=== PATIENT | female | born 1980 | race Caucasian/White ===

== ENCOUNTER 2019-01-16 07:41 | Emergency (ER) | payer BC, SELFPAY ==
[2019-01-16] MEDS ORDERED: MORPHINE 4 MG/ML SYR ONE ×2 (08:08→10:14)
[2019-01-16] MEDS ORDERED: NA CHLORIDE 0.9% 1,000 ML ONE (08:08)
[2019-01-16] MEDS ORDERED: ONDANSETRON 4 MG/2 ML VIAL ONE (08:08)
[2019-01-16 08:26] LABS: Absolute Lymphocytes (CBC) 2.1 K/uL (0.7-4.9); Basophils % 0.6 % (0-1.3); Hematocrit 36.5 % (36.0-45.0); Lymphocytes % 14.7 % (15.3-44.8); MPV 9.4 fL (7.6-11.3); RBC Red Blood Cell Count 4.28 M/uL (3.86-4.86)
[2019-01-16 08:45] LABS: ALT/SGPT 26 U/L (12-78); AST/SGOT 13 U/L (15-37); Albumin 3.8 g/dL (3.4-5.0); Alkaline Phosphatase 82 U/L (45-117); BUN Blood Urea Nitrogen 11 mg/dL (7-18); Bicarbonate 26 mmol/L (21-32); Bilirubin Direct < 0.1 mg/dL (0-0.2); Bilirubin Total 0.2 mg/dL (0.2-1.0); Glucose Level 73 mg/dL (74-106); Lipase 129 U/L (73-393); Potassium 3.9 mmol/L (3.5-5.1); Protein, Total 7.8 g/dL (6.4-8.2); Sodium Level 141 mmol/L (136-145)
[2019-01-16] MEDS ORDERED: KETOROLAC 30 MG/ML INJ ONE (09:18)
--- NOTE | 2019-01-16 09:55 | RAD REPORT ---
EXAM DESCRIPTION: CTAbdomen Pelvis W Contrast - 01/16/2019 9:46 am CLINICAL HISTORY: Abdominal pain. upper abdomen pain COMPARISON: CT ABD PELVIS W CONTRAST dated 11/12/2014; CT ABD PELVIS W CONTRAST dated 10/09/2013; CT ABD PELVIS W CONTRAST dated 07/15/2012 TECHNIQUE: Biphasic CT imaging of the abdomen and pelvis was performed with 100 ml non-ionic IV cont rast. All CT scans are performed using dose optimization technique as appropriate and may include automated exposure control or mA/KV adjustment according to patient size. FINDINGS: The lung bases are clear. The liver, spleen, pancreas, adrenal glands are within normal limits. Punctate bilateral renal calcul i without hydronephrosis. No bowel obstruction, free air, free fluid or abscess. Appendectomy clips. No evidence of significa nt lymphadenopathy. No suspicious bony findings. IMPRESSION: Small bilateral renal calculi without hydronephrosis.
[2019-01-16 10:31] LABS: Urine Blood TRACE (NEG); Urine Glucose NEGATIVE (NEG); Urine Protein NEGATIVE (NEG); Urine Specific Gravity >1.030 (1.005-1.030); Urine pH 5.5 (5.0-7.0)
[2019-01-16] MEDS ORDERED: LIDOCAINE VISCOUS 2% SOLN 15 ML UDC ONE (11:09)
[2019-01-16] MEDS ORDERED: MAGNE/ALUM HYDROXD 30 ML UCUP ONE (11:09)
--- NOTE | 2019-01-16 11:18 | RAD REPORT ---
EXAM DESCRIPTION: US - Abdomen Exam Limited - 01/16/2019 10:41 am CLINICAL HISTORY: ABD PAIN COMPARISON: ABDOMINAL EXAM COMPLETE dated 12/09/2014; Abdomen Pelvis W Contrast dated 01/16/2019 FINDINGS: The gallbladder demonstrates no gallstones. No pericholecystic fluid or gallbladder wall t hickening. The common bile duct is normal measuring 3 mm. The liver demonstrates no findings of intrahepatic biliary dilatation. IMPRESSION: Unremarkable examination.
--- NOTE | 2019-01-16 12:19 | ER ---
Nurse's Notes [facility] Name: Ericka Canales Age: 38 yrs Sex: Female : 1980 Arrival Date: 01/16/2019 Time: 07:43 Bed 14 Private MD: Diagnosis: Upper abdominal pain, unspecified Presentation: 01/16 08:00 Presenting complaint: Patient states: RUQ pain that began last night. Patient has been ss told she needs to have her gallbladder removed, but states she has kids at home and it's hard to take care of herself. Transition of care: patient was not received from another setting of care. Onset of symptoms was January 16, 2019. Risk Assessment: Do you want to hurt yourself or someone else? Patient reports no desire to harm self or others. Initial Sepsis Screen: Does the patient meet any 2 criteria? No. Patient's initial sepsis screen is negative. Does the patient have a suspected source of infection? No. Patient's initial sepsis screen is negative. Care prior to arrival: None. 08:00 Method Of Arrival: Ambulatory ss 08:00 Acuity: LETTY 3 ss CLIENT COORDINATOR: 08:05 LMP N/A - Irregular menses rb1 Historical: - Allergies: 08:02 No Known Allergies; ss - Home Meds: 08:05 None [Active]; rb1 - PMHx: 08:05 None; rb1 - PSHx: 08:02 Appendectomy; ; ss - Immunization history:: Adult Immunizations up to date. - Ebola Screening: : Patient denies exposure to infectious person Patient denies travel to an Ebola-affected area in the 21 days before illness onset. - Social history:: Smoking status: Patient uses tobacco products, denies chronic smoking, but will smoke occasionally. Screenin:55 Abuse screen: Denies threats or abuse. Nutritional screening: No deficits noted. rb1 Tuberculosis screening: No symptoms or risk factors identified. Fall Risk None identified. Assessment: 07:55 General: Appears uncomfortable, Behavior is calm, cooperative, Denies fever. Pain: rb1 Complains of pain in right upper quadrant Pain currently is 8 out of 10 on a pain scale. Neuro: Level of Consciousness is awake, alert, obeys commands, Oriented to person, place, time, situation. Cardiovascular: Capillary refill < 3 seconds is brisk in bilateral fingers. Respiratory: Airway is patent Respiratory effort is even, unlabored, Respiratory pattern is regular, symmetrical. GI: Reports nausea, vomiting. : No signs and/or symptoms were reported regarding the genitourinary system. Derm: Skin is pink, warm \T\ dry. Musculoskeletal: Range of motion: intact in all extremities. 08:55 Reassessment: Patient appears in no apparent distress at this time. No changes from rb1 previously documented assessment. 09:55 Reassessment: Patient appears in no apparent distress at this time. Patient and/or rb1 family updated on plan of care and expected duration. Pain level reassessed. Patient is alert, oriented x 3, equal unlabored respirations, skin warm/dry/pink. 10:30 Reassessment: Pt. went to US. rb1 11:05 Reassessment: Patient appears in no apparent distress at this time. Patient and/or rb1 family updated on plan of care and expected duration. Pain level reassessed. Patient is alert, oriented x 3, equal unlabored respirations, skin warm/dry/pink. 12:00 Reassessment: Patient appears in no apparent distress at this time. Patient and/or rb1 family updated on plan of care and expected duration. Pain level reassessed. Patient is alert, oriented x 3, equal unlabored respirations, skin warm/dry/pink. Vital Signs: 08:02 BP 125 / 58; Pulse 81; Resp 19; Temp 98.1; Pulse Ox 98% on R/A; Weight 99.79 kg; Height ss 5 ft. 6 in. (167.64 cm); Pain 9/10; 09:00 BP 112 / 67; Pulse 71; Resp 20; Temp 98.2(O); Pulse Ox 98% on R/A; Pain 7/10; rb1 10:00 BP 116 / 63; Pulse 66; Resp 19; Pulse Ox 99% on R/A; Pain 10/10; rb1 11:00 BP 120 / 68; Pulse 51; Resp 18; Temp 97.9(TE); Pulse Ox 99% on R/A; Pain 8/10; rb1 12:00 BP 108 / 70; Pulse 57; Resp 17; Temp 98.2(O); Pulse Ox 97% on R/A; rb1 08:02 Body Mass Index 35.51 (99.79 kg, 167.64 cm) ss 10:00 provider notified of pain. rb1 ED Course: 07:43 Patient arrived in ED. as 07:54 Sabino Bowman PA is PHCP. cp 07:54 Anny Calloway MD is Attending Physician. cp 07:55 Patient has correct armband on for positive identification. Placed in gown. Bed in low rb1 position. Call light in reach. Side rails up X 1. Pulse ox on. NIBP on. Warm blanket given. 07:55 Inserted saline lock: 22 gauge in right antecubital area, using aseptic technique. rb1 Blood collected. 08:01 Triage completed. ss 08:02 Arm band placed on right wrist. ss 08:04 Alice Dominguez, RN is Primary Nurse. rb1 09:47 CT Abd/Pelvis - IV Contrast Only In Process Unspecified. EDMS 10:38 US Abdomen Limited: RUQ/epigastric area In Process Unspecified. EDMS 12:18 Sonido Gant MD is Referral Physician. cp 13:09 No provider procedures requiring assistance completed. IV discontinued, intact, rb1 bleeding controlled, No redness/swelling at site. Pressure dressing applied. Administered Medications: 08:20 Drug: NS 0.9% 1000 ml Route: IV; Rate: 1 bolus; Site: right antecubital; rb1 08:20 Drug: Zofran 4 mg Route: IVP; Site: right antecubital; rb1 08:35 Follow up: Response: No adverse reaction; Nausea is decreased rb1 08:20 Drug: morphine 4 mg Route: IVP; Site: right antecubital; rb1 08:35 Follow up: Response: No adverse reaction; Pain is decreased rb1 09:20 Drug: TORadol 30 mg Route: IVP; Site: right antecubital; rb1 09:35 Follow up: Response: No adverse reaction; Pain is unchanged, physician notified rb1 10:18 Drug: morphine 4 mg Route: IVP; Site: right antecubital; rb1 10:40 Follow up: Response: No adverse reaction; Pain is decreased; pain 12/14 rb1 11:12 Drug: GI Cocktail without - (Maalox Suspension 30 ml, Lidocaine Liquid 2 % 15 rb1 ml) Route: PO; 11:30 Follow up: Response: No adverse reaction rb1 Intake: Outcome: 12:19 Discharge ordered by . cp 12:50 Patient left the ED. rb1 12:50 Discharged to home ambulatory. rb1 12:50 Condition: stable 12:50 Discharge instructions given to patient, Instructed on discharge instructions, follow rb1 up and referral plans. medication usage, Demonstrated understanding of instructions, follow-up care, medications, Prescriptions given X 3. Signatures: Dispatcher [employer] Jeannie Greoc Shelby, RN RN ss Sabino Bowman PA PA cp Barber, Rebecca, RN RN rb1
--- NOTE | 2019-01-16 12:20 | EDPHYS ---
Physician Documentation [facility] Name: Ericka Canales Age: 38 yrs Sex: Female : 1980 Arrival Date: 01/16/2019 Time: 07:43 Bed 14 Private MD: ED Physician Anny Calloway HPI: 01/16 08:10 This 38 yrs old Female presents to ER via Ambulatory with complaints of cp Gallbladder. 08:10 The patient presents with abdominal pain in the epigastric area, in the right upper cp quadrant. Onset: The symptoms/episode began/occurred last night. The symptoms radiate to Associated signs and symptoms: Pertinent positives: nausea, Pertinent negatives: blood in stools, chest pain, constipation, shortness of breath, vomiting. The patient has experienced similar episodes in the past, several times, today's symptoms are similar, to previous biliary colic. 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 - Ebola Screening: : Patient denies exposure to infectious person Patient denies travel to an Ebola-affected area in the 21 days before illness onset. - Social history:: Smoking status: Patient uses tobacco products, denies chronic smoking, but will smoke occasionally. ROS: 08:15 Constitutional: Negative for body aches, chills, fever, poor PO intake. cp 08:15 Eyes: Negative for injury, pain, redness, and discharge. cp 08:15 Cardiovascular: Negative for chest pain, edema, palpitations. cp 08:15 Respiratory: Negative for cough, shortness of breath, wheezing. cp 08:15 Abdomen/GI: Positive for abdominal pain, nausea, Negative for vomiting, diarrhea, constipation. 08:15 Back: Positive for radiated pain. 08:15 : Negative for urinary symptoms, vaginal bleeding, vaginal discharge. 08:15 Skin: Negative for cellulitis, rash. 08:15 Neuro: Negative for altered mental status, headache, weakness. 08:15 All other systems are negative. Exam: 08:25 Constitutional: The patient appears in no acute distress, alert, awake, cp non-diaphoretic, non-toxic, well developed, well nourished, uncomfortable. 08:25 Head/Face: Normocephalic, atraumatic. cp 08:25 Eyes: Periorbital structures: appear normal, Conjunctiva: normal, no exudate, no injection, Sclera: no appreciated abnormality, Lids and lashes: appear normal, bilaterally. 08:25 ENT: External ear(s): are unremarkable, Nose: is normal, Mouth: Lips: moist, Oral mucosa: pink and intact, moist, Posterior pharynx: is normal, airway is patent, no erythema, no exudate. 08:25 Chest/axilla: Inspection: normal, Palpation: is normal, no crepitus, no tenderness. 08:25 Cardiovascular: Rate: normal, Rhythm: regular. 08:25 Respiratory: the patient does not display signs of respiratory distress, Respirations: normal, no use of accessory muscles, no retractions, no splinting, no tachypnea, labored breathing, is not present, Breath sounds: are clear throughout, no decreased breath sounds, no stridor, no wheezing. 08:25 Abdomen/GI: Inspection: abdomen appears normal, Bowel sounds: active, all quadrants, Palpation: soft, in all quadrants, moderate abdominal tenderness, in the epigastric area and right upper quadrant, rebound tenderness, is not appreciated, voluntary guarding, is elicited in the epigastric area and right upper quadrant. 08:25 Back: pain, that is moderate, of the right mid back. 08:25 Skin: no rash present. Vital Signs: 08:02 BP 125 / 58; Pulse 81; Resp 19; Temp 98.1; Pulse Ox 98% on R/A; Weight 99.79 kg; Height ss 5 ft. 6 in. (167.64 cm); Pain 9/10; 09:00 BP 112 / 67; Pulse 71; Resp 20; Temp 98.2(O); Pulse Ox 98% on R/A; Pain 7/10; rb1 10:00 BP 116 / 63; Pulse 66; Resp 19; Pulse Ox 99% on R/A; Pain 10/10; rb1 11:00 BP 120 / 68; Pulse 51; Resp 18; Temp 97.9(TE); Pulse Ox 99% on R/A; Pain 8/10; rb1 12:00 BP 108 / 70; Pulse 57; Resp 17; Temp 98.2(O); Pulse Ox 97% on R/A; rb1 08:02 Body Mass Index 35.51 (99.79 kg, 167.64 cm) ss 10:00 provider notified of pain. rb1 MDM: 07:58 Patient medically screened. cp 09:00 Differential diagnosis: appendicitis, bowel obstruction, cholecystitis, Cholelithiasis, cp non-specific abd pain, pancreatitis, Peptic Ulcer Disease, Perf. Duodenal Ulcer, Perf. Gastric Ulcer, Ureterolithiasis, urinary tract infection. 12:18 Data reviewed: vital signs, nurses notes, lab test result(s), radiologic studies, CT cp scan, plain films. 12:18 Special discussion: Based on the patient's Hx, exam, and Dx evaluation, there is no cp indication for emergent surgery or inpatient Tx. It is understood by the patient/guardian that if the Sx's persist or worsen they need to return immediately for re-evaluation. 12:18 Counseling: I had a detailed discussion with the patient and/or guardian regarding: the cp historical points, exam findings, and any diagnostic results supporting the discharge/admit diagnosis, lab results, radiology results, the need for outpatient follow up, a patient care nursing assistant, to return to the emergency department if symptoms worsen or persist or if there are any questions or concerns that arise at home. 12:18 Response to treatment: the patient's symptoms have markedly improved after treatment, cp and as a result, I will discharge patient. 01/16 08:02 Order name: Basic Metabolic Panel; Complete Time: 08:58 cp 01/16 08:59 Interpretation: Normal except: GLUC 73; GFR 89. cp 01/16 08:02 Order name: CBC with Diff; Complete Time: 08:58 cp 01/16 08:59 Interpretation: Normal except: WBC 14.3; LYM% 14.7; NEUT A 10.5. cp 01/16 08:02 Order name: Creatinine for Radiology; Complete Time: 08:58 cp 01/16 08:02 Order name: Hepatic Function; Complete Time: 08:58 cp 01/16 09:03 Interpretation: Normal except: AST 13; GLOB 4.0; A/G 1.0. cp 01/16 08:02 Order name: Lipase; Complete Time: 08:58 cp 01/16 08:59 Interpretation: LIP 129; Reviewed. 01/16 09:21 Order name: Urine Dipstick--Ancillary (enter results); Complete Time: 11:04 bd 01/16 08:04 Order name: CT Abd/Pelvis - IV Contrast Only; Complete Time: 10:11 cp 01/16 09:21 Order name: Urine --Ancillary (enter results); Complete Time: 11:04 01/16 10:12 Order name: US Abdomen Limited: RUQ/epigastric area; Complete Time: 11:40 cp 01/16 11:41 Interpretation: Report reviewed. 01/16 08:02 Order name: IV Saline Lock; Complete Time: 08:26 01/16 08:02 Order name: Labs collected and sent; Complete Time: 08:26 01/16 08:02 Order name: Urine Dipstick-Ancillary (obtain specimen); Complete Time: 09:22 cp 01/16 08:02 Order name: Urine Test (obtain specimen); Complete Time: 09:22 cp Administered Medications: 08:20 Drug: NS 0.9% 1000 ml Route: IV; Rate: 1 bolus; Site: right antecubital; rb1 08:20 Drug: Zofran 4 mg Route: IVP; Site: right antecubital; rb1 08:35 Follow up: Response: No adverse reaction; Nausea is decreased rb1 08:20 Drug: morphine 4 mg Route: IVP; Site: right antecubital; rb1 08:35 Follow up: Response: No adverse reaction; Pain is decreased rb1 09:20 Drug: TORadol 30 mg Route: IVP; Site: right antecubital; rb1 09:35 Follow up: Response: No adverse reaction; Pain is unchanged, physician notified rb1 10:18 Drug: morphine 4 mg Route: IVP; Site: right antecubital; rb1 10:40 Follow up: Response: No adverse reaction; Pain is decreased; pain 12/14 rb1 11:12 Drug: GI Cocktail without - (Maalox Suspension 30 ml, Lidocaine Liquid 2 % 15 rb1 ml) Route: PO; 11:30 Follow up: Response: No adverse reaction rb1 Disposition: 18:51 Co-signature as Attending Physician, Anny Calloway MD. ma2 Disposition: 01/16/19 12:19 Discharged to Home. Impression: Upper abdominal pain, unspecified. - Condition is Stable. - Discharge Instructions: Abdominal Pain, Adult. - Prescriptions for Bentyl 20 mg Oral Tablet - take 2 tablets by ORAL route every 6 hours As needed; 30 tablet. Protonix 40 mg Oral Tablet - take 1 tablet by ORAL route once daily; 30 tablet. Zofran 4 mg Oral Tablet - take 1 tablet by ORAL route every 12 hours As needed; 20 tablet. - Medication Reconciliation Form, Thank You Letter, Antibiotic Education, Prescription Opioid Use form. - Follow up: Sonido Gant MD; When: 1 - 2 days; Reason: Recheck today's complaints. - Problem is new. - Symptoms have improved. Signatures: Dispatcher [employer] EDMS Marissa Gibbs RN RN ss Sabino Bowman PA PA cp Barber, Rebecca, RN RN rb1 Anny Calloway MD MD ma2 Corrections: (The following items were deleted from the chart) 08:59 08:59 Normal except: WBC 14.3. cp cp 12:50 12:19 01/16/2019 12:19 Discharged to Home. Impression: Upper abdominal pain, rb1 unspecified. Condition is Stable. Forms are Medication Reconciliation Form, Thank You Letter, Antibiotic Education, Prescription Opioid Use. Follow up: Sonido Gant; When: 1 - 2 days; Reason: Recheck today's complaints. Problem is new. Symptoms have improved. cp
[2019-01-16 13:13] VITALS: BP 108/70; TEMP 98.2; O2SAT 97
== END 2019-01-16 12:50 | disposition home or self-care (01) ==
LOC: ER 07:41
DX: R10.10 Upper abdominal pain, unspecified (principal)
CPT/HCPCS: 36415; 74177; 76705; 80048; 80076; 81003; 81025; 83690; 85025; 96374; 96375; 99284; J2405; J7030; Q9967

== ENCOUNTER 2019-04-14 18:49 | Emergency (ER) | payer SELFPAY ==
[2019-04-14] MEDS ORDERED: NA CHLORIDE 0.9% 1,000 ML ONE (19:28)
[2019-04-14 19:35] LABS: Absolute Lymphocytes (CBC) 2.8 K/uL (0.7-4.9); Basophils % 0.9 % (0-1.3); Hematocrit 38.7 % (36.0-45.0); MPV 9.7 fL (7.6-11.3); RBC Red Blood Cell Count 4.58 M/uL (3.86-4.86)
[2019-04-14 19:53] LABS: ALT/SGPT 23 U/L (12-78); AST/SGOT 15 U/L (15-37); Albumin 3.8 g/dL (3.4-5.0); Alkaline Phosphatase 75 U/L (45-117); BUN Blood Urea Nitrogen 13 mg/dL (7-18); Bicarbonate 27 mmol/L (21-32); Bilirubin Direct < 0.1 mg/dL (0-0.2); Bilirubin Total 0.2 mg/dL (0.2-1.0); Glucose Level 84 mg/dL (74-106); Lipase 68 U/L (73-393); Potassium 3.8 mmol/L (3.5-5.1); Protein, Total 7.6 g/dL (6.4-8.2); Sodium Level 139 mmol/L (136-145)
[2019-04-14] MEDS ORDERED: MORPHINE 4 MG/ML SYR ONE ×2 (20:03→20:38)
[2019-04-14] MEDS ORDERED: ONDANSETRON 4 MG/2 ML VIAL ONE ×2 (20:03→22:39)
--- NOTE | 2019-04-14 20:19 | RAD REPORT ---
EXAM DESCRIPTION: US - Abdomen Exam Limited - 04/14/2019 8:06 pm CLINICAL HISTORY: ABD PAIN COMPARISON: <Comparisons> FINDINGS: The gallbladder demonstrates no gallstones. No pericholecystic fluid or gallbladder wall t hickening. The common bile duct is normal measuring 2 mm. The liver demonstrates no findings of intrahepatic biliary dilatation. IMPRESSION: Unremarkable examination.
--- NOTE | 2019-04-14 20:19 | ER ---
Nurse's Notes [facility] Name: Ericka Canales Age: 38 yrs Sex: Female : 1980 Arrival Date: 04/14/2019 Time: 18:[address] Private MD: Diagnosis: Abdominal tenderness;Functional dyspepsia Presentation: 04/14 18:57 Presenting complaint: Patient states: RUQ pain for the past 2 hours. Reports nausea, aj1 vomiting. Denies diarrhea. Transition of care: patient was not received from another setting of care. Onset of symptoms was April 14, 2019. Risk Assessment: Do you want to hurt yourself or someone else? Patient reports no desire to harm self or others. Initial Sepsis Screen: Does the patient meet any 2 criteria? No. Patient's initial sepsis screen is negative. Does the patient have a suspected source of infection? Yes: Acute abdominal pain. Care prior to arrival: None. 18:57 Method Of Arrival: Ambulatory aj 18:57 Acuity: LETTY 3 aj1 Triage Assessment: 19:00 General: Appears in no apparent distress. comfortable, Behavior is calm, cooperative, aj1 appropriate for age. Pain: Complains of pain in right upper quadrant Pain currently is 8 out of 10 on a pain scale. Neuro: Level of Consciousness is awake, alert, obeys commands. Cardiovascular: Patient's skin is warm and dry. Respiratory: Airway is patent Respiratory effort is even, unlabored, Respiratory pattern is regular, symmetrical. GI: Reports upper abdominal pain. 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 - Social history:: Smoking status: Patient uses tobacco products, smokes one-half pack cigarettes per day. - Ebola Screening: : Patient denies travel to an Ebola-affected area in the 21 days before illness onset. - Family history:: not pertinent. Screenin:59 Abuse screen: Denies threats or abuse. Denies injuries from another. Nutritional rv screening: No deficits noted. Tuberculosis screening: No symptoms or risk factors identified. 23:02 Fall Risk None identified. rv Assessment: 19:31 General: Appears in no apparent distress. rv 19:31 Pain: Complains of pain in right upper quadrant. rv 19:31 Neuro: Level of Consciousness is awake, alert, obeys commands, Oriented to person, rv place, time, situation. Cardiovascular: Patient's skin is warm and dry. Respiratory: Airway is patent. GI: Bowel sounds present X 4 quads. Abd is soft and non tender X 4 quads. : No signs and/or symptoms were reported regarding the genitourinary system. EENT: No signs and/or symptoms were reported regarding the EENT system. Derm: Skin is intact. Musculoskeletal: No signs and/or symptoms reported regarding the musculoskeletal system. Vital Signs: 19:00 BP 112 / 73; Pulse 73; Resp 18; Temp 98.1; Pulse Ox 98% on R/A; Weight 104.33 kg (R); aj1 Height 5 ft. 6 in. (167.64 cm) (R); Pain 8/10; 20:00 BP 134 / 75; Pulse 68; Resp 16; Pulse Ox 98% on R/A; rv 21:00 BP 109 / 75; Pulse 68; Resp 17; Pulse Ox 98% on R/A; rv 21:00 BP 94 / 71; Pulse 56; Resp 15; Pulse Ox 99% on R/A; rv 22:00 BP 106 / 87; Pulse 70; Resp 16; Pulse Ox 99% on R/A; rv 22:57 BP 112 / 88; Pulse 66; Resp 15; Pulse Ox 97% on R/A; rv 19:00 Body Mass Index 37.12 (104.33 kg, 167.64 cm) aj1 ED Course: 18:51 Patient arrived in ED. as 19:00 Triage completed. aj1 19:00 Arm band placed on Patient placed in an exam room. aj1 19:04 Sabino Rendon MD is Attending Physician. [facility] 19:17 Urine collected: clean catch specimen, clear, bertha colored. jp3 19:18 Placed in gown. Bed in low position. Call light in reach. Side rails up X 1. Warm jp3 blanket given. Verbal reassurance given. Pulse ox on. NIBP on. 19:21 Prasanth Garcia, YOLANDA is Primary Nurse. rv 20:12 US Abdomen Limited In Process Unspecified. EDMS 20:17 Jaren Cross MD is Referral Physician. adelso 21:52 CT Abd/Pelvis - IV Contrast Only In Process Unspecified. EDMS 23:00 No provider procedures requiring assistance completed. IV discontinued, intact, rv bleeding controlled, No redness/swelling at site. Pressure dressing applied. Administered Medications: 19:29 Drug: NS 0.9% 1000 ml Route: IV; Rate: 1 bolus; Site: right antecubital; rv 22:25 Follow up: IV Status: Completed infusion; IV Intake: 1000ml rv 20:00 Drug: morphine 4 mg Route: IVP; Site: right antecubital; rv 22:25 Follow up: Response: No adverse reaction; Pain is unchanged, physician notified; RASS: rv Alert and Calm (0) 20:00 Drug: Zofran 4 mg Route: IVP; Site: right antecubital; rv 22:25 Follow up: Response: No adverse reaction rv 20:23 CANCELLED (Duplicate Order): morphine 4 mg IVP once; RASS on ADMIN: Combtv4, Very rv Agttd3, Agttd2, Rstlss1, AlertClm0, Drwsy-1, Lt Sdtn-2, Mod Sdtn-3, Dp Sdtn-4, UnArsble-5 20:23 CANCELLED (Duplicate Order): Zofran 4 mg IVP once; over 2 minutes rv 20:40 Drug: morphine 4 mg {Note: RASS 0.} Route: IVP; Site: left antecubital; rv 22:26 Follow up: Response: No adverse reaction; Pain is unchanged, physician notified; RASS: rv Alert and Calm (0) 20:40 Drug: Zofran 4 mg Route: IVP; Site: left antecubital; rv 22:26 Follow up: Response: No adverse reaction rv 20:41 Drug: Pepcid 20 mg Route: IVP; Site: left antecubital; rv 22:24 Follow up: Response: No adverse reaction rv 21:52 Drug: Dilaudid 0.5 mg {Note: RASS 0.} Route: IVP; Site: right forearm; rv 22:26 Follow up: Response: No adverse reaction; Marked relief of symptoms; Pain is decreased; rv RASS: Alert and Calm (0) 22:56 Not Given (not indicated): Dilaudid 0.5 mg IVP once; RASS on ADMIN: Combtv4, Very rv Agttd3, Agttd2, Rstlss1, AlertClm0, Drwsy-1, Lt Sdtn-2, Mod Sdtn-3, Dp Sdtn-4, UnArsble-5 Intake: 22:25 IV: 1000ml; Total: 1000ml. rv Outcome: 20:18 Discharge ordered by . adelso 23:01 Discharged to home ambulatory, with family. rv 23:01 Condition: good 23:01 Discharge instructions given to patient, Instructed on discharge instructions, follow up and referral plans. medication usage, Demonstrated understanding of instructions, follow-up care, medications, Prescriptions given X 4. 23:12 Patient left the ED. rv Signatures: Dispatcher [employer] Hanna Hoyos, RN RN Sabino Oneill MD MD cha Martinez, Amelia as Vicente, Ronaldo, RN RN Jaime Viramontes jp3 Corrections: (The following items were deleted from the chart) 21:53 21:52 Dilaudid 0.5 mg IVP in right forearm rv rv
--- NOTE | 2019-04-14 20:19 | EDPHYS ---
Physician Documentation [facility] Name: Ericka Canales Age: 38 yrs Sex: Female : 1980 Arrival Date: 04/14/2019 Time: 18:[address] Private MD: ED Physician Sabino Rendon HPI: 04/14 20:10 This 38 yrs old Female presents to ER via Ambulatory with complaints of adelso Abdominal Pain. 20:10 The patient presents with abdominal pain in the epigastric area, in the upper abdomen, adelso abdominal distention in the upper abdomen, in the lower abdomen. Onset: The symptoms/episode began/occurred just prior to arrival, today. The symptoms radiate to Associated signs and symptoms: none. The symptoms are described as constant, crampy. Modifying factors: The symptoms are alleviated by nothing, the symptoms are aggravated by nothing. Severity of pain: At its worst the pain was moderate in the emergency department the pain is unchanged. The patient has not experienced similar symptoms in the past. 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 - Social history:: Smoking status: Patient uses tobacco products, smokes one-half pack cigarettes per day. - Ebola Screening: : Patient denies travel to an Ebola-affected area in the 21 days before illness onset. - Family history:: not pertinent. ROS: 20:10 Constitutional: Negative for fever, chills, and weight loss, Eyes: Negative for injury, adelso pain, redness, and discharge, ENT: Negative for injury, pain, and discharge, Neck: Negative for injury, pain, and swelling, Cardiovascular: Negative for chest pain, palpitations, and edema, Respiratory: Negative for shortness of breath, cough, wheezing, and pleuritic chest pain, Back: Negative for injury and pain, : Negative for injury, bleeding, discharge, and swelling, MS/Extremity: Negative for injury and deformity, Skin: Negative for injury, rash, and discoloration, Neuro: Negative for headache, weakness, numbness, tingling, and seizure, Psych: Negative for depression, anxiety, suicide ideation, homicidal ideation, and hallucinations, Allergy/Immunology: Negative for hives, rash, and allergies, Endocrine: Negative for neck swelling, polydipsia, polyuria, polyphagia, and marked weight changes, Hematologic/Lymphatic: Negative for swollen nodes, abnormal bleeding, and unusual bruising. 20:10 Abdomen/GI: Positive for abdominal pain, of the epigastric area and right upper quadrant. Exam: 20:10 Constitutional: This is a well developed, well nourished patient who is awake, alert, adelso and in no acute distress. Head/Face: Normocephalic, atraumatic. Eyes: Pupils equal round and reactive to light, extra-ocular motions intact. Lids and lashes normal. Conjunctiva and sclera are non-icteric and not injected. Cornea within normal limits. Periorbital areas with no swelling, redness, or edema. ENT: Nares patent. No nasal discharge, no septal abnormalities noted. Tympanic membranes are normal and external auditory canals are clear. Oropharynx with no redness, swelling, or masses, exudates, or evidence of obstruction, uvula midline. Mucous membranes moist. Neck: Trachea midline, no thyromegaly or masses palpated, and no cervical lymphadenopathy. Supple, full range of motion without nuchal rigidity, or vertebral point tenderness. No Meningismus. Chest/axilla: Normal chest wall appearance and motion. Nontender with no deformity. No lesions are appreciated. Cardiovascular: Regular rate and rhythm with a normal S1 and S2. No gallops, murmurs, or rubs. Normal PMI, no JVD. No pulse deficits. Respiratory: Lungs have equal breath sounds bilaterally, clear to auscultation and percussion. No rales, rhonchi or wheezes noted. No increased work of breathing, no retractions or nasal flaring. Back: No spinal tenderness. No costovertebral tenderness. Full range of motion. Skin: Warm, dry with normal turgor. Normal color with no rashes, no lesions, and no evidence of cellulitis. MS/ Extremity: Pulses equal, no cyanosis. Neurovascular intact. Full, normal range of motion. Neuro: Awake and alert, GCS 15, oriented to person, place, time, and situation. Cranial nerves II-XII grossly intact. Motor strength 5/5 in all extremities. Sensory grossly intact. Cerebellar exam normal. Normal gait. Psych: Awake, alert, with orientation to person, place and time. Behavior, mood, and affect are within normal limits. 20:10 Abdomen/GI: Inspection: abdomen appears normal, Bowel sounds: normal, active, in the right upper quadrant, Palpation: mild abdominal tenderness, in the right upper quadrant, Liver: no appreciated palpable abnormalities, Hernia: not appreciated. Vital Signs: 19:00 BP 112 / 73; Pulse 73; Resp 18; Temp 98.1; Pulse Ox 98% on R/A; Weight 104.33 kg (R); aj1 Height 5 ft. 6 in. (167.64 cm) (R); Pain 8/10; 20:00 BP 134 / 75; Pulse 68; Resp 16; Pulse Ox 98% on R/A; rv 21:00 BP 109 / 75; Pulse 68; Resp 17; Pulse Ox 98% on R/A; rv 21:00 BP 94 / 71; Pulse 56; Resp 15; Pulse Ox 99% on R/A; rv 22:00 BP 106 / 87; Pulse 70; Resp 16; Pulse Ox 99% on R/A; rv 22:57 BP 112 / 88; Pulse 66; Resp 15; Pulse Ox 97% on R/A; rv 19:00 Body Mass Index 37.12 (104.33 kg, 167.64 cm) aj1 MDM: 19:04 Patient medically screened. [facility] 20:17 Data reviewed: vital signs, nurses notes, lab test result(s), radiologic studies. [facility] 04/14 19:05 Order name: Basic Metabolic Panel; Complete Time: 20:06 [facility] 04/14 19:05 Order name: CBC with Diff; Complete Time: 20:06 [facility] 04/14 19:05 Order name: Creatinine for Radiology; Complete Time: 20:06 [facility] 04/14 19:05 Order name: Hepatic Function; Complete Time: 20:06 [facility] 04/14 19:05 Order name: Lipase; Complete Time: 20:06 [facility] 04/14 19:05 Order name: Urine Culture [facility] 04/14 19:05 Order name: US Abdomen Limited; Complete Time: 21:18 [facility] 04/14 19:18 Order name: Urine Dipstick--Ancillary (enter results); Complete Time: 21:18 [facility] 04/14 19:18 Order name: Urine --Ancillary (enter results); Complete Time: 21:18 2 04/14 21:19 Order name: CT Abd/Pelvis - IV Contrast Only [facility] 04/14 19:05 Order name: IV Saline Lock; Complete Time: 20:59 [facility] 04/14 19:05 Order name: Labs collected and sent; Complete Time: 20:59 [facility] 04/14 19:05 Order name: Urine Dipstick-Ancillary (obtain specimen); Complete Time: 19:21 [facility] 04/14 19:05 Order name: Urine Test (obtain specimen); Complete Time: 19:21 [facility] Administered Medications: 19:29 Drug: NS 0.9% 1000 ml Route: IV; Rate: 1 bolus; Site: right antecubital; rv 22:25 Follow up: IV Status: Completed infusion; IV Intake: 1000ml rv 20:00 Drug: morphine 4 mg Route: IVP; Site: right antecubital; rv 22:25 Follow up: Response: No adverse reaction; Pain is unchanged, physician notified; RASS: rv Alert and Calm (0) 20:00 Drug: Zofran 4 mg Route: IVP; Site: right antecubital; rv 22:25 Follow up: Response: No adverse reaction rv 20:23 CANCELLED (Duplicate Order): morphine 4 mg IVP once; RASS on ADMIN: Combtv4, Very rv Agttd3, Agttd2, Rstlss1, AlertClm0, Drwsy-1, Lt Sdtn-2, Mod Sdtn-3, Dp Sdtn-4, UnArsble-5 20:23 CANCELLED (Duplicate Order): Zofran 4 mg IVP once; over 2 minutes rv 20:40 Drug: morphine 4 mg {Note: RASS 0.} Route: IVP; Site: left antecubital; rv 22:26 Follow up: Response: No adverse reaction; Pain is unchanged, physician notified; RASS: rv Alert and Calm (0) 20:40 Drug: Zofran 4 mg Route: IVP; Site: left antecubital; rv 22:26 Follow up: Response: No adverse reaction rv 20:41 Drug: Pepcid 20 mg Route: IVP; Site: left antecubital; rv 22:24 Follow up: Response: No adverse reaction rv 21:52 Drug: Dilaudid 0.5 mg {Note: RASS 0.} Route: IVP; Site: right forearm; rv 22:26 Follow up: Response: No adverse reaction; Marked relief of symptoms; Pain is decreased; rv RASS: Alert and Calm (0) 22:56 Not Given (not indicated): Dilaudid 0.5 mg IVP once; RASS on ADMIN: Combtv4, Very rv Agttd3, Agttd2, Rstlss1, AlertClm0, Drwsy-1, Lt Sdtn-2, Mod Sdtn-3, Dp Sdtn-4, UnArsble-5 Disposition: 04/14/19 20:18 Discharged to Home. Impression: Abdominal tenderness, Functional dyspepsia. - Condition is Stable. - Discharge Instructions: Abdominal Pain, Adult, Nausea and Vomiting, Adult, Abdominal Pain, Adult, [id number]. - Prescriptions for Bentyl 20 mg Oral Tablet - take 1 tablet by ORAL route every 6 hours As needed; 20 tablet. Pepcid 20 mg Oral Tablet - take 1 tablet by ORAL route every 12 hours for 10 days; 20 tablet. Tylenol- Codeine #3 300-30 mg Oral Tablet - take 2 tablets by ORAL route every 6 hours As needed; 26 tablet. Zofran 4 mg Oral Tablet - take 1 tablet by ORAL route every 12 hours As needed; 20 tablet. - Medication Reconciliation Form, Thank You Letter, Antibiotic Education, Prescription Opioid Use form. - Follow up: Private Physician; When: 2 - 3 days; Reason: Recheck today's complaints, Continuance of care, Re-evaluation by your physician. Follow up: Jaren Cross MD; When: 2 - 3 days; Reason: Recheck today's complaints, Re-evaluation by your physician. - Problem is new. - Symptoms have improved. Signatures: Dispatcher [employer] Hanna Hoyos RN RN ajSabino Godoy MD MD cha Vicente, Ronaldo RN RN rv Corrections: (The following items were deleted from the chart) 20:23 20:22 morphine 4 mg IVP once; RASS on ADMIN: Combtv4, Very Agttd3, Agttd2, Rstlss1, rv AlertClm0, Drwsy-1, Lt Sdtn-2, Mod Sdtn-3, Dp Sdtn-4, UnArsble-5 ordered. rv 20:23 20:22 Zofran 4 mg IVP once; over 2 minutes ordered. rv rv 23:12 20:18 04/14/2019 20:18 Discharged to Home. Impression: Abdominal tenderness; Functional rv dyspepsia. Condition is Stable. Forms are Medication Reconciliation Form, Thank You Letter, Antibiotic Education, Prescription Opioid Use. Follow up: Private Physician; When: 2 - 3 days; Reason: Recheck today's complaints, Continuance of care, Re-evaluation by your physician. Follow up: Jaren Cross; When: 2 - 3 days; Reason: Recheck today's complaints, Re-evaluation by your physician. Problem is new. Symptoms have improved. adelso
[2019-04-14] MEDS ORDERED: FAMOTIDINE 20 MG/2 ML VIAL IV ONE (20:36)
[2019-04-14 20:48] LABS: Urine Blood TRACE (NEG); Urine Glucose NEGATIVE (NEG); Urine Protein NEGATIVE (NEG); Urine pH 6.5 (5.0-7.0)
[2019-04-14] MEDS ORDERED: HYDROMORPHONE HCL 0.5 MG/0.5 ML INJ ONE (21:25)
[2019-04-14 23:25] VITALS: TEMP 98.1
[2019-04-14 23:31] VITALS: BP 112/88; O2SAT 97
--- NOTE | 2019-04-15 11:31 | RAD REPORT ---
EXAM DESCRIPTION: CT - Abdomen Pelvis W Contrast - 04/15/2019 3:07 am CLINICAL HISTORY: The patient is 38 years old and is Female; ABD PAIN TECHNIQUE: Axial computed tomography images of the abdomen and pelvis with intravenous contrast. S agittal and coronal reformatted images were created and reviewed. This CT exam was performed using one or more of the following dose reduction techniques: automated exposure control, adjustment of t he mA and/or kV according to patient size, and/or use of iterative reconstruction technique. DLP: 2183 mGy*cm COMPARISON: CT abdomen and pelvis with IV contrast January 16, 2019. FINDINGS: LUNG BASES: Lung bases are clear. HEART: Visualized heart is normal. ABDOMEN: LIVER: Unremarkable. No mass. GALLBLADDER AND BILE DUCTS: Unremarkable. No calcified stones. No ductal dilation. PANCREAS: Unremarkable. No mass. No ductal dilation. SPLEEN: Unremarkable. No splenomegaly. ADRENALS: Unremarkable. No mass. KIDNEYS AND URETERS: Multiple bilateral nonobstructive renal stones. No hydronephrosis or hydroure ter. STOMACH AND BOWEL: Unremarkable. No obstruction. No mucosal thickening. PELVIS: APPENDIX: Right lower quadrant postsurgical changes. Appendix is not seen. BLADDER: Bladder is decompressed. REPRODUCTIVE: Small amount of endometrial fluid. Left ovarian corpus luteal cyst measuring 1.8 cm. ABDOMEN and PELVIS: INTRAPERITONEAL SPACE: Unremarkable. No free air. No significant fluid collection. BONES/JOINTS: No acute fracture. No dislocation. SOFT TISSUES: Unremarkable. VASCULATURE: Unremarkable. No abdominal aortic aneurysm. LYMPH NODES: Unremarkable. No enlarged lymph nodes. IMPRESSION: 1. No acute abdominal or pelvic abnormality. 2. Bilateral nonobstructive renal stones. 3. 1.8 cm left ovarian corpus luteal cyst. No follow-up imaging is recommended. Reference: US recommendations based on Radiology 2010 Jan;256(3):943-54; CT/MR recommendations based on J Am Petros Radiol 2013;10:675-681. Electronically signed by: Renny Back DO 04/14/2019 10:27 PM [employer]GER [employer] Due to temporary technical issues with the PACS/Fluency reporting system, reports are being signed by the in house radiologist as a courtesy to ensure prompt reporting. The interpreting radiologist is f ully responsible for the content of the report.
== END 2019-04-14 23:12 | disposition home or self-care (01) ==
LOC: ER 18:49
DX: K30 Functional dyspepsia (principal); R10.819 Abdominal tenderness, unspecified site; F17.210 Nicotine dependence, cigarettes, uncomplicated
CPT/HCPCS: 36415; 74177; 76705; 80048; 80076; 81003; 81025; 83690; 85025; 87086; 87088; 96361; 96374; 96375; 99284; J1170; J2405; J7030; Q9967

== ENCOUNTER 2019-04-18 18:22 | Emergency (ER) | payer BC, SELFPAY ==
[2019-04-18] MEDS ORDERED: ONDANSETRON 4 MG/2 ML VIAL ONE (19:11)
[2019-04-18] MEDS ORDERED: PANTOPRAZOLE 40 MG INJ ONE (19:11)
[2019-04-18] MEDS ORDERED: MORPHINE 4 MG/ML SYR ONE (19:11)
[2019-04-18] MEDS ORDERED: NA CHLORIDE 0.9% 1,000 ML ONE (19:12)
[2019-04-18 19:18] LABS: Basophils % 0.9 % (0-1.3); Hematocrit 39.7 % (36.0-45.0); Lymphocytes % 32.9 % (15.3-44.8); MPV 9.4 fL (7.6-11.3); RBC Red Blood Cell Count 4.69 M/uL (3.86-4.86)
[2019-04-18 19:37] LABS: ALT/SGPT 25 U/L (12-78); AST/SGOT 14 U/L (15-37); Albumin 4.1 g/dL (3.4-5.0); Alkaline Phosphatase 67 U/L (45-117); BUN Blood Urea Nitrogen 14 mg/dL (7-18); Bicarbonate 26 mmol/L (21-32); Bilirubin Direct < 0.1 mg/dL (0-0.2); Bilirubin Total 0.3 mg/dL (0.2-1.0); Glucose Level 76 mg/dL (74-106); Lipase 82 U/L (73-393); Protein, Total 8.2 g/dL (6.4-8.2); Sodium Level 136 mmol/L (136-145)
[2019-04-18 19:46] LABS: Urine Blood 1+ (NEG); Urine Glucose NEGATIVE (NEG); Urine Protein NEGATIVE (NEG); Urine Specific Gravity >1.030 (1.005-1.030); Urine pH 5.5 (5.0-7.0)
[2019-04-18] MEDS ORDERED: MEPERIDINE HCL 50 MG/ML ONE (20:14)
--- NOTE | 2019-04-18 20:16 | EDPHYS ---
Physician Documentation [facility] Name: Ericka Canales Age: 38 yrs Sex: Female : 1980 Arrival Date: 04/18/2019 Time: 18:24 Bed 14 Private MD: ED Physician Aquilino Salinas HPI: 04/18 18:56 This 38 yrs old Female presents to ER via Ambulatory with complaints of pkl Abdominal Pain. 18:56 The patient presents with abdominal pain in the right upper quadrant. Onset: The pkl symptoms/episode began/occurred 1 week(s) ago. The symptoms radiate to right back. Associated signs and symptoms: Pertinent positives: nausea and vomiting. The patient has been recently seen at the [facility] Emergency Department, this week, for similar complaints an ultrasound was performed, CT scan was performed. Patient said she is still having RUQ pain, nausea and vomiting. Has appt. with Dr. Reaves on Sunday ( 04/21/19 ). Historical: - Allergies: 18:36 No Known Allergies; jl7 - Home Meds: 18:36 Pepcid Oral [Active]; jl7 - PMHx: 18:36 Kidney stones; jl7 - PSHx: 18:36 None; jl7 - Immunization history:: Adult Immunizations up to date. - Social history:: Smoking status: Patient uses tobacco products, smokes one-half pack cigarettes per day, Patient uses street drugs, THC edibles. - Ebola Screening: : No symptoms or risks identified at this time. ROS: 18:56 Eyes: Negative for injury, pain, redness, and discharge, ENT: Negative for injury, pkl pain, and discharge, Neck: Negative for injury, pain, and swelling, Cardiovascular: Negative for chest pain, palpitations, and edema, Respiratory: Negative for shortness of breath, cough, wheezing, and pleuritic chest pain. 18:56 Abdomen/GI: Positive for abdominal pain, nausea and vomiting, of the right upper quadrant. 18:56 Back: Negative for acute changes. 18:56 : Negative for urinary symptoms. 18:56 MS/extremity: Negative for acute changes. 18:56 Skin: Negative for rash. 18:56 Neuro: Negative for altered mental status. Exam: 18:56 Head/Face: Normocephalic, atraumatic. Eyes: Pupils equal round and reactive to light, pkl extra-ocular motions intact. Lids and lashes normal. Conjunctiva and sclera are non-icteric and not injected. Cornea within normal limits. Periorbital areas with no swelling, redness, or edema. ENT: Nares patent. No nasal discharge, no septal abnormalities noted. Tympanic membranes are normal and external auditory canals are clear. Oropharynx with no redness, swelling, or masses, exudates, or evidence of obstruction, uvula midline. Mucous membranes moist. Neck: Trachea midline, no thyromegaly or masses palpated, and no cervical lymphadenopathy. Supple, full range of motion without nuchal rigidity, or vertebral point tenderness. No Meningismus. Chest/axilla: Normal chest wall appearance and motion. Nontender with no deformity. No lesions are appreciated. Cardiovascular: Regular rate and rhythm with a normal S1 and S2. No gallops, murmurs, or rubs. Normal PMI, no JVD. No pulse deficits. Respiratory: Lungs have equal breath sounds bilaterally, clear to auscultation and percussion. No rales, rhonchi or wheezes noted. No increased work of breathing, no retractions or nasal flaring. 18:56 Abdomen/GI: Bowel sounds: normal, Palpation: soft, mild abdominal tenderness, in the right upper quadrant. 18:56 Back: Exam negative for acute changes. 18:56 : Exam negative for acute changes. 18:56 Musculoskeletal/extremity: Exam is negative for acute changes. 18:56 Skin: Exam negative for rash. 18:56 Neuro: Orientation: is normal, Mentation: is normal, Cranial nerves: grossly normal, Motor: is normal. Vital Signs: 18:36 BP 96 / 71; Pulse 68; Resp 17 S; Temp 98.3(O); Pulse Ox 99% on R/A; Weight 104.33 kg jl7 (R); Height 5 ft. 6 in. (167.64 cm) (R); Pain 8/10; 19:45 BP 96 / 83; Pulse 68; Resp 16; Pulse Ox 100% on R/A; jb4 20:15 BP 102 / 83; Pulse 100; Resp 16; Pulse Ox 61% ; jb4 20:38 BP 122 / 82; Pulse 61; Resp 16; Pulse Ox 100% on R/A; jb4 18:36 Body Mass Index 37.12 (104.33 kg, 167.64 cm) jl7 MDM: 18:40 Patient medically screened. pkl 20:11 Data reviewed: vital signs, nurses notes, lab test result(s). ED course: Discussed lab. pkl results with patient. Advised to keep her appt. with Dr. Garcia on Sunday I 04/21/19 ) Patient understood instructions. 04/18 18:49 Order name: Urine Dipstick--Ancillary (enter results); Complete Time: 20:04 em1 04/18 18:49 Order name: Urine --Ancillary (enter results); Complete Time: 20:04 em1 04/18 18:53 Order name: Basic Metabolic Panel; Complete Time: 20:04 pkl 04/18 18:53 Order name: CBC with Diff; Complete Time: 19:28 pkl 04/18 18:53 Order name: Creatinine for Radiology; Complete Time: 20:04 pkl 04/18 18:53 Order name: Hepatic Function; Complete Time: 20:04 pkl 04/18 18:53 Order name: Lipase; Complete Time: 20:04 pkl 04/18 18:53 Order name: IV Saline Lock; Complete Time: 19:30 pkl 04/18 18:53 Order name: Labs collected and sent; Complete Time: 19:30 pkl Administered Medications: 19:15 Drug: Zofran 4 mg Route: IVP; Site: right antecubital; jb4 19:45 Follow up: Response: No change in condition; Nausea unchanged jb4 19:17 Drug: morphine 4 mg {Note: Rass score 0.} Route: IVP; Site: right antecubital; jb4 19:45 Follow up: Response: No adverse reaction; Pain is unchanged, physician notified; RASS: jb4 Alert and Calm (0) 19:18 Drug: NS 0.9% 1000 ml Route: IV; Rate: 1000 ml; Site: right antecubital; jb4 20:00 Follow up: Response: No adverse reaction; IV Status: Completed infusion; IV Intake: jb4 1000ml 19:18 Drug: ProTONIX 40 mg Route: IVP; Site: right antecubital; jb4 20:42 Follow up: Response: No adverse reaction jb4 20:17 Drug: Demerol 50 mg {Note: Rass score 0.} Route: IVP; Site: right antecubital; jb4 20:42 Follow up: Response: No adverse reaction; Pain is decreased; RASS: Alert and Calm (0) jb4 Disposition: 04/18/19 20:14 Discharged to Home. Impression: Right upper quadrant abdominal pain. - Condition is Stable. - Prescriptions for Ultram 50 mg Oral Tablet - take 1 tablet by ORAL route every 8 hours As needed; 12 tablet. promethazine 25 mg Oral Tablet - take 1 tablet by ORAL route every 8 hours As needed; 15 tablet. - Medication Reconciliation Form, Thank You Letter, Antibiotic Education, Prescription Opioid Use form. - Follow up: Jaren Cross MD; When: 2 - 3 days; Reason: Re-evaluation by your physician. - Problem is new. - Symptoms have improved. Signatures: Dispatcher [employer] EDMS Aquilino Salinas MD MD pkl Laurent Terrell, RN RN jb4 Naun Natarajan RN RN jl7 Corrections: (The following items were deleted from the chart) 20:44 20:14 04/18/2019 20:14 Discharged to Home. Impression: Right upper quadrant abdominal jb4 pain. Condition is Stable. Forms are Medication Reconciliation Form, Thank You Letter, Antibiotic Education, Prescription Opioid Use. Follow up: Jaren Cross; When: 2 - 3 days; Reason: Re-evaluation by your physician. Problem is new. Symptoms have improved. pkl
--- NOTE | 2019-04-18 20:16 | ER ---
Nurse's Notes [facility] Name: Ericka Canales Age: 38 yrs Sex: Female : 1980 Arrival Date: 04/18/2019 Time: 18:24 Bed 14 Private MD: Diagnosis: Right upper quadrant abdominal pain Presentation: 04/18 18:31 Presenting complaint: Patient states: Here a few days ago and was discharged to [facility] follow-up with GI, I have an appointment on Sunday but I still can't eat or drink, my head hurts, I just feel bad. Reports continued RUQ abdominal x 1 week, N/V denies diarrhea, reports constipation, Last BM was yesterday and it was hard. Transition of care: patient was not received from another setting of care. Onset of symptoms was April 12, 2019. Risk Assessment: Do you want to hurt yourself or someone else? Patient reports no desire to harm self or others. Initial Sepsis Screen: Does the patient meet any 2 criteria? No. Patient's initial sepsis screen is negative. Does the patient have a suspected source of infection? No. Patient's initial sepsis screen is negative. Care prior to arrival: None. 18:31 Method Of Arrival: Ambulatory [facility] 18:31 Acuity: LETTY 3 jl Historical: - Allergies: 18:36 No Known Allergies; jl7 - Home Meds: 18:36 Pepcid Oral [Active]; jl7 - PMHx: 18:36 Kidney stones; jl7 - PSHx: 18:36 None; jl7 - Immunization history:: Adult Immunizations up to date. - Social history:: Smoking status: Patient uses tobacco products, smokes one-half pack cigarettes per day, Patient uses street drugs, THC edibles. - Ebola Screening: : No symptoms or risks identified at this time. Screenin:05 Abuse screen: Denies threats or abuse. Nutritional screening: No deficits noted. jb4 Tuberculosis screening: No symptoms or risk factors identified. Fall Risk IV access (20 points). Total Hernandez Fall Scale indicates No Risk (0-24 pts). Assessment: 19:05 General: Appears in no apparent distress. uncomfortable, Behavior is calm, cooperative, jb4 appropriate for age. Pain: Complains of pain in abdomen Pain does not radiate. Pain currently is 8 out of 10 on a pain scale. Neuro: Level of Consciousness is awake, alert, obeys commands, Oriented to person, place, time, situation. Cardiovascular: Patient's skin is warm and dry. Respiratory: Airway is patent Respiratory effort is even, unlabored, Respiratory pattern is regular, symmetrical. GI: Abdomen is round non-distended, Bowel sounds present X 4 quads. Abd is soft X 4 quads Abdomen is tender to palpation X 4 quads. : No signs and/or symptoms were reported regarding the genitourinary system. EENT: No signs and/or symptoms were reported regarding the EENT system. Derm: Skin is intact, Skin is pink, warm \T\ dry. Musculoskeletal: Circulation, motion, and sensation intact. Range of motion: intact in all extremities. 19:45 Reassessment: Patient appears in no apparent distress at this time. Patient and/or jb4 family updated on plan of care and expected duration. Pain level reassessed. Patient is alert, oriented x 3, equal unlabored respirations, skin warm/dry/pink. PT reports zofran and morphine is not helping, provider notified, no new orders at this time. 20:38 Reassessment: Patient appears in no apparent distress at this time. Patient and/or jb4 family updated on plan of care and expected duration. Pain level reassessed. Patient is alert, oriented x 3, equal unlabored respirations, skin warm/dry/pink. PT d/c home with . Pt and verbalized understanding of d/c and follow up instructions. Vital Signs: 18:36 BP 96 / 71; Pulse 68; Resp 17 S; Temp 98.3(O); Pulse Ox 99% on R/A; Weight 104.33 kg [facility] (R); Height 5 ft. 6 in. (167.64 cm) (R); Pain 8/10; 19:45 BP 96 / 83; Pulse 68; Resp 16; Pulse Ox 100% on R/A; jb4 20:15 BP 102 / 83; Pulse 100; Resp 16; Pulse Ox 61% ; jb4 20:38 BP 122 / 82; Pulse 61; Resp 16; Pulse Ox 100% on R/A; jb4 18:36 Body Mass Index 37.12 (104.33 kg, 167.64 cm) [facility] ED Course: 18:24 Patient arrived in ED. as 18:35 Triage completed. jl7 18:36 Arm band placed on right wrist. jl7 18:40 Brissa Abdi, YOLANDA is Primary Nurse. ca1 18:40 Aquilino Salinas MD is Attending Physician. pkl 18:42 Brissa Abdi, YOLANDA is Primary Nurse. ca1 18:48 Patient has correct armband on for positive identification. mh5 18:48 Urine collected: clean catch specimen, clear. mh5 19:05 Initial lab(s) drawn, by me, sent to lab. Inserted saline lock: 20 gauge in right jb4 antecubital area, using aseptic technique. Blood collected. 20:14 Jaren Cross MD is Referral Physician. pkl 20:38 No provider procedures requiring assistance completed. IV discontinued, intact, jb4 bleeding controlled, No redness/swelling at site. Pressure dressing applied. Administered Medications: 19:15 Drug: Zofran 4 mg Route: IVP; Site: right antecubital; jb4 19:45 Follow up: Response: No change in condition; Nausea unchanged jb4 19:17 Drug: morphine 4 mg {Note: Rass score 0.} Route: IVP; Site: right antecubital; jb4 19:45 Follow up: Response: No adverse reaction; Pain is unchanged, physician notified; RASS: jb4 Alert and Calm (0) 19:18 Drug: NS 0.9% 1000 ml Route: IV; Rate: 1000 ml; Site: right antecubital; jb4 20:00 Follow up: Response: No adverse reaction; IV Status: Completed infusion; IV Intake: jb4 1000ml 19:18 Drug: ProTONIX 40 mg Route: IVP; Site: right antecubital; jb4 20:42 Follow up: Response: No adverse reaction jb4 20:17 Drug: Demerol 50 mg {Note: Rass score 0.} Route: IVP; Site: right antecubital; jb4 20:42 Follow up: Response: No adverse reaction; Pain is decreased; RASS: Alert and Calm (0) jb4 Intake: 20:00 IV: 1000ml; Total: 1000ml. jb4 Outcome: 20:14 Discharge ordered by . pkl 20:38 Discharged to home via wheelchair, with significant other. jb4 20:38 Condition: stable 20:38 Discharge instructions given to patient, significant other, Instructed on discharge instructions, follow up and referral plans. medication usage, Demonstrated understanding of instructions, follow-up care, medications, Prescriptions given X 2. 20:44 Patient left the ED. jb4 Signatures: Aquilino Salinas MD MD pkl Martinez, Amelia as Bryson, James RN RN jb4 Shannon Rodriguez [facility] Naun Natarajan RN RN jl7 Brissa Abdi RN RN ca1 Corrections: (The following items were deleted from the chart) 20:40 20:38 Patient did not have IV access during this emergency room visit. jb4 jb4
[2019-04-18 23:14] VITALS: TEMP 98.3
[2019-04-18 23:19] VITALS: BP 122/82; O2SAT 100
== END 2019-04-18 20:44 | disposition home or self-care (01) ==
LOC: ER 18:22
DX: R10.11 Right upper quadrant pain (principal)
CPT/HCPCS: 96361; 85025; 80048; 36415; 81025; 80076; 81003; 83690; 96375; 96374; 99284; C9113; J2175; J7030; J2405

== ENCOUNTER 2019-04-23 17:22 | Observation (INO) | payer BC ==
[2019-04-23] MEDS ORDERED: ONDANSETRON 4 MG/2 ML VIAL ONE ×2 (18:12→19:33)
[2019-04-23] MEDS ORDERED: MORPHINE 4 MG/ML SYR ONE ×2 (18:12→19:33)
[2019-04-23 18:15] LABS: Absolute Lymphocytes (CBC) 2.9 K/uL (0.7-4.9); Basophils % 0.4 % (0-1.3); Hematocrit 40.7 % (36.0-45.0); Lymphocytes % 36.4 % (15.3-44.8); MPV 9.1 fL (7.6-11.3); RBC Red Blood Cell Count 4.88 M/uL (3.86-4.86)
[2019-04-23 18:34] LABS: Albumin 4.2 g/dL (3.4-5.0); Bilirubin Direct 0.1 mg/dL (0-0.2); Bilirubin Total 0.4 mg/dL (0.2-1.0); Potassium 3.6 mmol/L (3.5-5.1); Protein, Total 8.3 g/dL (6.4-8.2)
[2019-04-23] MEDS ORDERED: NA CHLORIDE 0.9% 0 ML ONE (19:33)
[2019-04-23] MEDS ORDERED: LIDOCAINE VISCOUS 2% SOLN 15 ML UDC ONE (19:33)
[2019-04-23] MEDS ORDERED: MAGNE/ALUM HYDROXD 30 ML UCUP ONE (19:33)
--- NOTE | 2019-04-23 20:42 | ER ---
Nurse's Notes [facility] Name: Ericka Canales Age: 38 yrs Sex: Female : 1980 Arrival Date: 04/23/2019 Time: 17:23 Bed 25 Private MD: Diagnosis: Generalized abdominal pain;Intractable nausea and vomiting Presentation: 04/23 17:40 Presenting complaint: Patient states: I'm still having severe abdominal pains. I got an rv appointment with surgery and he said it is may pancreas. today I am living in my bathroom. Vomiting and Diarrhea. they changed my Tylenol #3 to Tramadol, I've finished all my Tramadol so I took my Tylenol #3 at 2pm today. and it is still hurting. Transition of care: patient was not received from another setting of care. Onset of symptoms was April 23, 2019 at 08:00. Risk Assessment: Do you want to hurt yourself or someone else? Patient reports no desire to harm self or others. Initial Sepsis Screen: Does the patient meet any 2 criteria? No. Patient's initial sepsis screen is negative. Does the patient have a suspected source of infection? No. Patient's initial sepsis screen is negative. Care prior to arrival: None. 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 - Social history:: Smoking status: Patient uses tobacco products, smokes one-half pack cigarettes per day. - Ebola Screening: : No symptoms or risks identified at this time. Screenin:47 Abuse screen: Denies threats or abuse. Denies injuries from another. Nutritional rv screening: No deficits noted. Tuberculosis screening: No symptoms or risk factors identified. Fall Risk None identified. Assessment: 17:46 General: Appears in no apparent distress. Behavior is calm, appropriate for age. Pain: rv Complains of pain in epigastric. Neuro: Level of Consciousness is awake, alert, obeys commands, Oriented to person, place, time, situation. Cardiovascular: Patient's skin is warm and dry. Respiratory: Airway is patent. GI: Bowel sounds present X 4 quads. Abd is soft and non tender Reports upper abdominal pain, diarrhea, nausea, vomiting. Derm: Skin is intact. 19:51 Reassessment: Patient appears in no apparent distress at this time. Patient and/or mg2 family updated on plan of care and expected duration. Pain level reassessed. patient verbalizes pain. provider informed and ordered more pain medicine. Vital Signs: 17:43 BP 133 / 96; Pulse 76; Resp 17; Temp 98.1; Pulse Ox 97% ; Weight 104.33 kg; Height 5 rv ft. 6 in. (167.64 cm); Pain 8/10; 19:39 BP 137 / 100; Pulse 80; Resp 18; Pulse Ox 100% on R/A; mg2 20:40 BP 133 / 90; Pulse 81; Resp 18; Temp 98; Pulse Ox 100% on R/A; mg2 22:20 BP 129 / 78; Pulse 82; Resp 18; Temp 98; Pulse Ox 100% on R/A; mg2 17:43 Body Mass Index 37.12 (104.33 kg, 167.64 cm) rv ED Course: 17:23 Patient arrived in ED. as 17:40 Prasanth Garcia RN is Primary Nurse. rv 17:42 Constantin Maldonado PA is PHCP. jr8 17:42 Robbi Colmenares MD is Attending Physician. jr8 17:43 Triage completed. rv 17:47 Arm band placed on right wrist. rv 17:47 Patient has correct armband on for positive identification. Bed in low position. Call rv light in reach. Side rails up X 1. Pulse ox on. NIBP on. 18:26 No provider procedures requiring assistance completed. Inserted saline lock: 22 gauge mg2 in right forearm, using aseptic technique. Blood collected. 20:40 Anny Arnold MD is Hospitalizing Provider. jr8 22:26 Patient admitted, IV remains in place. mg2 Administered Medications: 18:24 Drug: Zofran 4 mg Route: IVP; Site: right forearm; mg2 22:24 Follow up: Response: No adverse reaction mg2 18:25 Drug: morphine 4 mg Route: IVP; Site: right forearm; mg2 22:25 Follow up: Response: No adverse reaction mg2 19:41 Drug: Zofran 4 mg Route: IVP; Site: right forearm; mg2 22:22 Follow up: Response: No adverse reaction; Marked relief of symptoms mg2 19:41 Drug: NS 0.9% 1000 ml Route: IV; Rate: 1000 ml; Site: right forearm; mg2 22:22 Follow up: Response: No adverse reaction; IV Status: Completed infusion; IV Intake: mg2 1000ml 19:42 Drug: morphine 4 mg Route: IVP; Site: right forearm; mg2 22:23 Follow up: Response: No adverse reaction mg2 19:43 Drug: GI Cocktail without - (Maalox Suspension 30 ml, Lidocaine Liquid 2 % 15 mg2 ml) Route: PO; 22:24 Follow up: Response: No adverse reaction; Marked relief of symptoms mg2 20:55 Drug: Reglan 10 mg Route: IVP; Site: right forearm; mg2 22:22 Follow up: Response: No adverse reaction mg2 20:56 Drug: NS 0.9% 1000 ml Route: IV; Rate: 125 ml/hr; Site: right forearm; mg2 22:20 Follow up: IV Status: Infusion continued upon admission; IV Intake: 120ml mg2 Intake: 22:20 IV: 120ml; Total: 120ml. mg2 22:22 IV: 1000ml; Total: 1120ml. mg2 Outcome: 20:41 Decision to Hospitalize by Provider. jrBarbara 22:26 Admitted to Med/surg accompanied by pramod, via wheelchair, room 408, with chart, Report mg2 called to YOLANDA Chowdhury 22:26 Condition: stable 22:26 Instructed on the need for admit. 22:55 Patient left the ED. mg2 Signatures: Jeannie Rodriguez Josh, PA PA jr8 Maninder Riley, YOLANDA RN mg2 Prasanth Garcia RN RN rv
--- NOTE | 2019-04-23 20:42 | EDPHYS ---
Physician Documentation [facility] Name: Ericka Canales Age: 38 yrs Sex: Female : 1980 Arrival Date: 04/23/2019 Time: 17:23 Bed 25 Private MD: ED Physician Robbi Colmenares HPI: 04/23 18:07 This 38 yrs old Female presents to ER via Ambulatory with complaints of jr8 Abdominal Pain. 18:07 The patient presents with abdominal pain in the epigastric area, in the upper abdomen. jr8 Onset: The symptoms/episode began/occurred gradually, 1 week(s) ago. The symptoms do not radiate. Associated signs and symptoms: Pertinent positives: nausea and vomiting. The symptoms are described as stabbing. Modifying factors: The symptoms are alleviated by nothing, the symptoms are aggravated by food. Severity of pain: At its worst the pain was moderate in the emergency department the pain is unchanged. The patient has not experienced similar symptoms in the past. The patient has been recently seen by a physician:. Patient has been seen twice in ED over the past 8 days for same complaint. US, CT, and Lab work were completed with no acute findings. Referred to surgery for further evaluation. Other tests have been ordered but have not been completed as of yet. Continues to have pain and feels that it is worsening . 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 - Social history:: Smoking status: Patient uses tobacco products, smokes one-half pack cigarettes per day. - Ebola Screening: : No symptoms or risks identified at this time. ROS: 18:09 Eyes: Negative for injury, pain, redness, and discharge, ENT: Negative for injury, jr8 pain, and discharge, Neck: Negative for injury, pain, and swelling, Cardiovascular: Negative for chest pain, palpitations, and edema, Respiratory: Negative for shortness of breath, cough, wheezing, and pleuritic chest pain, Back: Negative for injury and pain, MS/Extremity: Negative for injury and deformity, Skin: Negative for injury, rash, and discoloration, Neuro: Negative for headache, weakness, numbness, tingling, and seizure. 18:09 Abdomen/GI: Positive for abdominal pain, nausea and vomiting, Negative for diarrhea, abdominal cramps, abdominal distension. Exam: 18:09 Eyes: Pupils equal round and reactive to light, extra-ocular motions intact. Lids and jr8 lashes normal. Conjunctiva and sclera are non-icteric and not injected. Cornea within normal limits. Periorbital areas with no swelling, redness, or edema. ENT: Nares patent. No nasal discharge, no septal abnormalities noted. Tympanic membranes are normal and external auditory canals are clear. Oropharynx with no redness, swelling, or masses, exudates, or evidence of obstruction, uvula midline. Mucous membranes moist. Neck: Trachea midline, no thyromegaly or masses palpated, and no cervical lymphadenopathy. Supple, full range of motion without nuchal rigidity, or vertebral point tenderness. No Meningismus. Cardiovascular: Regular rate and rhythm with a normal S1 and S2. No gallops, murmurs, or rubs. Normal PMI, no JVD. No pulse deficits. Respiratory: Lungs have equal breath sounds bilaterally, clear to auscultation and percussion. No rales, rhonchi or wheezes noted. No increased work of breathing, no retractions or nasal flaring. Back: No spinal tenderness. No costovertebral tenderness. Full range of motion. Skin: Warm, dry with normal turgor. Normal color with no rashes, no lesions, and no evidence of cellulitis. MS/ Extremity: Pulses equal, no cyanosis. Neurovascular intact. Full, normal range of motion. Neuro: Awake and alert, GCS 15, oriented to person, place, time, and situation. Cranial nerves II-XII grossly intact. Motor strength 5/5 in all extremities. Sensory grossly intact. Cerebellar exam normal. Normal gait. 18:09 Abdomen/GI: Inspection: obese Bowel sounds: active, all quadrants, Palpation: soft, in all quadrants, moderate abdominal tenderness, in the epigastric area, right upper quadrant and left upper quadrant, mass, is not appreciated, rebound tenderness, is not appreciated, voluntary guarding, is not appreciated, involuntary guarding, is not appreciated, no appreciated organomegaly, Indicators: McBurney's point is not tender, Barba's sign is negative, Rovsing's sign is negative, Liver: tenderness, is not appreciated. Vital Signs: 17:43 BP 133 / 96; Pulse 76; Resp 17; Temp 98.1; Pulse Ox 97% ; Weight 104.33 kg; Height 5 rv ft. 6 in. (167.64 cm); Pain 8/10; 19:39 BP 137 / 100; Pulse 80; Resp 18; Pulse Ox 100% on R/A; mg2 20:40 BP 133 / 90; Pulse 81; Resp 18; Temp 98; Pulse Ox 100% on R/A; mg2 22:20 BP 129 / 78; Pulse 82; Resp 18; Temp 98; Pulse Ox 100% on R/A; mg2 17:43 Body Mass Index 37.12 (104.33 kg, 167.64 cm) rv MDM: 17:42 Patient medically screened. jr8 19:44 Data reviewed: vital signs, nurses notes, old medical records, lab test result(s). Data jr8 interpreted: Pulse oximetry: on room air is 100 %. Interpretation: normal. Counseling: I had a detailed discussion with the patient and/or guardian regarding: the historical points, exam findings, and any diagnostic results supporting the discharge/admit diagnosis, lab results. ED course: Spoke with Dr. Cross about patients case since he saw her on an outpatient basis two days ago. Patient is set to have pancreatic enzymes drawn along with having HIDA scan and EGD. Will get her pain and nausea under control and to f/u again with Dr. Cross . 20:39 ED course: Patient still in pain. Still having diarrhea and vomiting. Called Dr. tonya Cross back and agreed to consult on case if we admit for obs for hydration and pain management. Will also have patient do gastric emptying study. Dr. Arnold accepted medicine amanda . 04/23 17:44 Order name: Basic Metabolic Panel; Complete Time: 18:36 jr8 04/23 17:44 Order name: CBC with Diff; Complete Time: 18:19 jr8 04/23 17:44 Order name: Creatinine for Radiology; Complete Time: 18:36 jr8 04/23 17:44 Order name: Hepatic Function; Complete Time: 18:36 jr8 04/23 17:44 Order name: Lipase; Complete Time: 18:36 8 04/23 21:10 Order name: CBC with Automated Diff EDMS 04/23 21:10 Order name: CBC with Automated Diff EDMS 04/23 21:10 Order name: Comprehensive Metabolic Panel EDMS 04/23 21:10 Order name: Comprehensive Metabolic Panel EDMS 04/23 21:10 Order name: Lipid Profile EDMS 04/23 21:11 Order name: Lipid Profile EDMS 04/23 21:11 Order name: Protime (+INR) EDMS 04/23 21:11 Order name: Protime (+INR) EDMS 04/23 21:11 Order name: PTT, Activated Partial Thromb EDMS 04/23 17:44 Order name: IV Saline Lock; Complete Time: 18:09 [facility] 04/23 17:44 Order name: Labs collected and sent; Complete Time: 18:09 [facility] 04/23 21:10 Order name: CONS Pharmacy Consult EDMS 04/23 21:10 Order name: CONS Physician Consult EDMS 04/23 21:10 Order name: NPO EDMS 04/23 21:11 Order name: PTT, Activated Partial Thromb EDMS Administered Medications: 18:24 Drug: Zofran 4 mg Route: IVP; Site: right forearm; mg2 22:24 Follow up: Response: No adverse reaction mg2 18:25 Drug: morphine 4 mg Route: IVP; Site: right forearm; mg2 22:25 Follow up: Response: No adverse reaction mg2 19:41 Drug: Zofran 4 mg Route: IVP; Site: right forearm; mg2 22:22 Follow up: Response: No adverse reaction; Marked relief of symptoms mg2 19:41 Drug: NS 0.9% 1000 ml Route: IV; Rate: 1000 ml; Site: right forearm; mg2 22:22 Follow up: Response: No adverse reaction; IV Status: Completed infusion; IV Intake: mg2 1000ml 19:42 Drug: morphine 4 mg Route: IVP; Site: right forearm; mg2 22:23 Follow up: Response: No adverse reaction mg2 19:43 Drug: GI Cocktail without - (Maalox Suspension 30 ml, Lidocaine Liquid 2 % 15 mg2 ml) Route: PO; 22:24 Follow up: Response: No adverse reaction; Marked relief of symptoms mg2 20:55 Drug: Reglan 10 mg Route: IVP; Site: right forearm; mg2 22:22 Follow up: Response: No adverse reaction mg2 20:56 Drug: NS 0.9% 1000 ml Route: IV; Rate: 125 ml/hr; Site: right forearm; mg2 22:20 Follow up: IV Status: Infusion continued upon admission; IV Intake: 120ml mg2 Disposition: 04/23/19 20:41 Hospitalization ordered by Anny Arnold for Observation. Preliminary diagnosis are Generalized abdominal pain, Intractable nausea and vomiting . - Bed requested for Telemetry/MedSurg (observation). - Status is Observation. mg2 - Condition is Stable. - Problem is new. - Symptoms are unchanged. UTI on Admission? No Signatures: Dispatcher [employer] EDMS Constantin Maldonado PA PA jr8 Precious Ruelas RN RN tl1 Maninder Riley, RN RN mg2 Prasanth Garcia RN RN rv Corrections: (The following items were deleted from the chart) 22:05 20:41 Hospitalization Ordered by Anny Arnold MD for Observation. Preliminary tl1 diagnosis is Generalized abdominal pain; Intractable nausea and vomiting . Bed requested for Telemetry/MedSurg (observation). Status is Observation. Condition is Stable. Problem is new. Symptoms are unchanged. UTI on Admission? No. jr8 22:55 22:05 04/23/2019 20:41 Hospitalization Ordered by Anny Arnold MD for Observation. mg2 Preliminary diagnosis is Generalized abdominal pain; Intractable nausea and vomiting . Bed requested for Telemetry/MedSurg (observation). Status is Observation. Condition is Stable. Problem is new. Symptoms are unchanged. UTI on Admission? No. tl1
[2019-04-23] MEDS ORDERED: METOCLOPRAMIDE 10 MG/2mL INJ ONE ×2 (20:48→20:56)
[2019-04-23] MEDS ORDERED: NA CHLORIDE 0.9% 1,000 ML ONE ×2 (20:48→20:56)
[2019-04-23] MEDS ORDERED: NA CHLORIDE 0.9% 100 ML IV ONE (20:48)
[2019-04-23] MEDS ORDERED: ACETAMINOPHEN 500 MG TAB PO PRN (20:58)
[2019-04-23 23:05] VITALS: BMI 36.8
[2019-04-23] MEDS ORDERED: LORazepam 2 MG/ML VIAL IV ONE (23:23)
[2019-04-23] MEDS: NA CHLORIDE 0.9% 1,000 ML IV SCH (23:42)
[2019-04-24] MEDS: MORPHINE 2 MG/ML SYR IV PRN ×2 (00:02→09:45)
[2019-04-24] MEDS: NA CHLORIDE 0.9% 1,000 ML IV SCH ×2 (07:00→14:17)
--- NOTE | 2019-04-24 07:31 | P.PN ---
Date of Service: 04/24/19 Received a phone call regarding patient was claustrophobic and not willing to do the HIDA scan. I am not really sure why she was claustrophobic for the HIDA scan that she is not in an enclosed location. She had informed me last night that the surgeons she saw last week informed her that she needed a HIDA scan to rule out gallbladder issues which she wanted to get done. At this time, because she is refusing will hold off on the test and anticipate discharge later today if okay with GI.
--- NOTE | 2019-04-24 07:36 | P.HP ---
Certification for Inpatient Patient admitted to: Observation With expected LOS: <2 Midnights Patient will require the following post-hospital care: None Practitioner: I am a practitioner with admitting privileges, knowledge of patient current condition, hospital course, and medical plan of care. Services: Services provided to patient in accordance with Admission requirements found in Title 42 Section 412.3 of the Code of Federal Regulations Patient History Date of Service: 04/23/19 Reason for admission: Intractable nausea and vomiting/abdominal pain/diarrhea History of Present Illness: Patient is a 38-year-old female who presents to the hospital with abdominal discomfort. Patient had intractable nausea and vomiting along with some diarrhea. Patient has been having symptoms on and off for quite a while. She has been worked up in the past with EGD and colonoscopy. She was seen by surgeon last week who recommended that she get a HIDA scan for further evaluation. She was also evaluated for multiple other diagnostic studies which have been unremarkable. She has had a lot of stress in her life as there grandmother a few months ago. She states she was very close to her grandmother, and she has been having a hard time dealing with her passing. At this time, will go ahead and give her some anxiolytics and see how she does overnight. Will go ahead and admit the patient for observation. Allergies egg Adverse Reaction (Verified 11/25/15 05:42) Nausea/Vomiting Home Medications: Codeine/APAP [Tylenol W/Codeine #3 tab] 1 tab PO Q6HP PRN #25 tab 11/27/15 - Past Medical/Surgical History Has patient received pneumonia vaccine in the past: No Diabetic: No -: Staph infection with 1st caesarian section -: Nephrolithiasis -: PLTCS 2006 -: RLTCS 2009 -: RLTCS 2012 -: Appendectomy 2006 - Family History Mother Medical History: Hypertension, Cancer Notes: Head/neck stage 4 cancer. - Social History Smoking Status: Current every day smoker Alcohol use: No CD- Drugs: Yes Caffeine use: Yes Place of Residence: Home Review of Systems 10-point ROS is otherwise unremarkable Physical Examination - Vital Signs Temperature: 97.8 F Blood Pressure: 97/68 Pulse: 61 Respirations: 16 Pulse Ox (%): 97 - Physical Exam General: Alert, In no apparent distress, Oriented x3 HEENT: Atraumatic, PERRLA, Mucous membr. moist/pink, EOMI, Sclerae nonicteric Neck: Supple, 2+ carotid pulse no bruit, No LAD, Without JVD or thyroid abnormality Respiratory: Clear to auscultation bilaterally, Normal air movement Cardiovascular: Regular rate/rhythm, Normal S1 S2, No murmurs Gastrointestinal: Normal bowel sounds, Soft and benign, Non-distended, No tenderness Musculoskeletal: No clubbing, No swelling, No tenderness Integumentary: No rashes Neurological: Normal gait, Normal speech, Normal strength at 5/5 x4 extr, Normal tone, Sensation intact, Cranial nerves 3-12 intact, Normal affect Lymphatics: No axilla or inguinal lymphadenopathy - Studies Laboratory Data (last 24 hrs) 04/23/19 18:05: Creatinine 0.72 04/23/19 18:05: WBC 7.9 D, Hgb 13.8, Hct 40.7, Plt Count 318 04/23/19 18:05: Sodium 138, Potassium 3.6, BUN 10, Creatinine 0.77, Glucose 95, Total Bilirubin 0.4, AST 11 L, ALT 22, Alkaline Phosphatase 67, Lipase 66 L Assessment & Plan - Problems (Diagnosis) (1) Intractable nausea and vomiting Current Visit: Yes Status: Acute (2) Anxiety Current Visit: Yes Status: Acute (3) Abdominal pain Current Visit: Yes Status: Acute - Plan Plan: 1. Gentle hydration 2. Anti emetics 3. Anxiolytics 4. Surgery consultation 5. HIDA scan 6. GI and DVT prophylaxis Discharge Plan: Home Plan to discharge in: 48 Hours - Advance Directives Does patient have a Living Will: No Does patient have a Durable POA for Healthcare: No - Code Status/Comfort Care Code Status Assessed: Yes Code Status: Full Code Critical Care: No Time Spent Managing PTS Care (In Minutes): 40
[2019-04-24] MEDS: LORazepam 2 MG/ML VIAL IV PRN ×3 (08:01→20:23)
[2019-04-24 08:11] LABS: Absolute Lymphocytes (CBC) 3.3 K/uL (0.7-4.9); Basophils % 0.8 % (0-1.3); Hematocrit 39.3 % (36.0-45.0); Lymphocytes % 35.4 % (15.3-44.8); MPV 9.6 fL (7.6-11.3); RBC Red Blood Cell Count 4.64 M/uL (3.86-4.86)
[2019-04-24 08:17] LABS: Protime INR 1.02
[2019-04-24 09:22] LABS: Albumin 3.7 g/dL (3.4-5.0); Bilirubin Total 0.5 mg/dL (0.2-1.0); Potassium 3.7 mmol/L (3.5-5.1)
[2019-04-24] MEDS: ONDANSETRON 4 MG/2 ML VIAL IV PRN ×2 (09:46→17:24)
--- NOTE | 2019-04-24 10:11 | RAD REPORT ---
EXAM DESCRIPTION: NM - Hepatobiliary System W/ Ph - 04/24/2019 9:45 am CLINICAL HISTORY: Abdominal pain TECHNIQUE: The patient was administered 6.4 millicuries technetium Choletec intravenous and images o f the abdomen obtained for 43 minutes. Patient was given 1.9 micrograms Kinevac intravenously and fauzia ges of the gallbladder obtained for 33 minutes FINDINGS: Liver demonstrates prompt radiotracer uptake. Activity is seen within the gallbladder by 13 minutes. After the administration of cck gallbladder ejection fraction equals 90% (normal values greater than 35% Radiotracer is visualized within small bowel Patient complained of pain 7 out of 10 prior to CCK. During the administration patient complained of pain 10 out of 10 with nausea IMPRESSION: No evidence of acute cholecystitis Gallbladder ejection fraction equals 90% which is normal
--- NOTE | 2019-04-24 11:15 | P.DS ---
Admission Date: 04/23/19 Discharge Date: 04/24/19 Primary Care Provider: Unknown, Surgery-Dr. Cross Disposition: ROUTINE DISCHARGE Discharge Condition: GOOD Reason for Admission: Intractable nausea and vomiting/abdominal pain/diarrhea Consultations: Surgery-Dr. Cross Procedures: HIDA scan: FINDINGS: Liver demonstrates prompt radiotracer uptake. Activity is seen within the gallbladder by 13 minutes. After the administration of cck gallbladder ejection fraction equals 90% ( normal values greater than 35% Radiotracer is visualized within small bowel Patient complained of pain 7 out of 10 prior to CCK. During the administration patient complained of pain 10 out of 10 with nausea IMPRESSION: No evidence of acute cholecystitis Gallbladder ejection fraction equals 90% which is normal ABUS 04/14/2019: FINDINGS: The gallbladder demonstrates no gallstones. No pericholecystic fluid or gallbladder wall thickening. The common bile duct is normal measuring 2 mm. The liver demonstrates no findings of intrahepatic biliary dilatation. IMPRESSION: Unremarkable examination. CT scan 04/14/2019: COMPARISON: CT abdomen and pelvis with IV contrast January 16, 2019. FINDINGS: LUNG BASES: Lung bases are clear. HEART: Visualized heart is normal. ABDOMEN: LIVER: Unremarkable. No mass. GALLBLADDER AND BILE DUCTS: Unremarkable. No calcified stones. No ductal dilation. PANCREAS: Unremarkable. No mass. No ductal dilation. SPLEEN: Unremarkable. No splenomegaly. ADRENALS: Unremarkable. No mass. KIDNEYS AND URETERS: Multiple bilateral nonobstructive renal stones. No hydronephrosis or hydroureter. STOMACH AND BOWEL: Unremarkable. No obstruction. No mucosal thickening. PELVIS: APPENDIX: Right lower quadrant postsurgical changes. Appendix is not seen. BLADDER: Bladder is decompressed. REPRODUCTIVE: Small amount of endometrial fluid. Left ovarian corpus luteal cyst measuring 1.8 cm. ABDOMEN and PELVIS: INTRAPERITONEAL SPACE: Unremarkable. No free air. No significant fluid collection. BONES/JOINTS: No acute fracture. No dislocation. SOFT TISSUES: Unremarkable. VASCULATURE: Unremarkable. No abdominal aortic aneurysm. LYMPH NODES: Unremarkable. No enlarged lymph nodes. IMPRESSION: 1. No acute abdominal or pelvic abnormality. 2. Bilateral nonobstructive renal stones. 3. 1.8 cm left ovarian corpus luteal cyst. Medical Problem List: Chronic abdominal pain with nausea and vomiting likely GERD with hiatal hernia Anxiety disorder with increased stress Obesity, BMI 36.8 Brief History of Present Illness: 38-year-old female presents the emergency room with abdominal discomfort. She also reported nausea and vomiting. This has been going on for quite some time. Patient reports history of prior EGD and colonoscopy. She reports history of hiatal hernia. Patient was seen by Surgery as outpatient recently. Abdominal ultrasound and CT scan of the abdomen done 04/14/2019 was unremarkable. Surgery recommended HIDA scan. Due to increased nausea and vomiting, Patient was admitted for further evaluation. Patient also with increased stress and anxiety. Family member recently . Hospital Course: Patient presented with chronic abdominal pain, nausea and vomiting. Patient has seen surgery recently. Recent CT scan of the abdomen unremarkable for a GI related cause. Abdominal ultrasound also unremarkable. Patient was admitted for further evaluation. HIDA scan performed. HIDA scan was also unremarkable. Case discussed at length with surgery. No need for surgical intervention at this time. Surgery recommends EGD as an outpatient. Patient reports history of EGD done in the distant past. There was some concern of hiatal hernia. She has not been taking any medication. At discharge lab unremarkable. Patient with increase anxiety. No significant abdominal pain noted. No further vomiting noted. At discharge will recommend Protonix 40 mg daily and Bentyl 10 mg twice daily as needed for abdominal discomfort. Zofran 4 mg 3 times a day as needed for nausea will be provided as well. Patient will follow up with surgery for outpatient EGD on Sunday. Patient will continue with a full liquid diet and advance to a GI soft. Education on GERD/hiatal hernia provided. Patient also has increased anxiety. Patient with recent loss of family member. Patient reports increased stress at home. She is a mother of 4 with poor family support. Patient was given antianxiety medication prior to HIDA scan due to claustrophobia. Will recommend psychiatric evaluation as an outpatient to further address. Patient would benefit with grief loss counseling. Recommend follow up with a PCP to further address. Vital Signs/Physical Exam: Temp Pulse Resp BP Pulse Ox 97.1 F 61 17 119/63 97 04/24/19 08:00 04/24/19 08:00 04/24/19 08:00 04/24/19 08:00 04/24/19 08:00 General: Alert, Other (Increase anxiety) HEENT: Atraumatic Neck: Supple Respiratory: Clear to auscultation bilaterally, Normal air movement Cardiovascular: Normal pulses, Regular rate/rhythm Gastrointestinal: Normal bowel sounds, Soft and benign, Non-distended, No tenderness, No masses, No rebound, No guarding Musculoskeletal: No erythema, No tenderness, No warmth Integumentary: No tenderness/swelling, No erythema, No warmth, No cyanosis Neurological: Normal speech, Normal strength at 5/5 x4 extr Laboratory Data at Discharge: WBC 9.2 K/uL (4.3-10.9) D 04/24/19 07:30 Hgb 13.2 g/dL (12.0-15.0) 04/24/19 07:30 Hct 39.3 % (36.0-45.0) 04/24/19 07:30 Plt Count 294 K/uL (152-406) 04/24/19 07:30 PT 12.0 SECONDS (9.5-12.5) 04/24/19 07:30 INR 1.02 04/24/19 07:30 APTT 30.8 SECONDS (24.3-36.9) 04/24/19 07:30 Sodium 140 mmol/L (136-145) 04/24/19 07:30 Potassium 3.7 mmol/L (3.5-5.1) 04/24/19 07:30 BUN 10 mg/dL (7-18) 04/24/19 07:30 Creatinine 0.82 mg/dL (0.55-1.3) 04/24/19 07:30 Glucose 94 mg/dL (74-106) 04/24/19 07:30 Total Bilirubin 0.5 mg/dL (0.2-1.0) 04/24/19 07:30 AST 16 U/L (15-37) 04/24/19 07:30 ALT 21 U/L (12-78) 04/24/19 07:30 Alkaline Phosphatase 63 U/L (45-117) 04/24/19 07:30 Triglycerides 150 mg/dL (<150) 04/24/19 07:30 Cholesterol 186 mg/dL (<200) 04/24/19 07:30 HDL Cholesterol 33 mg/dL (40-60) L 04/24/19 07:30 Cholesterol/HDL Ratio 5.64 04/24/19 07:30 Lipase 66 U/L (73-393) L 04/23/19 18:05 Home Medications: Codeine/APAP [Tylenol #3*] 1 tab PO Q6HP PRN #25 tab 11/27/15 Dicyclomine [Bentyl*] 10 mg PO BID PRN #20 cap 04/24/19 Ondansetron HCl [Zofran] 4 mg PO TID PRN #10 tablet 04/24/19 Pantoprazole [Protonix Tab] 40 mg PO DAILY #30 tab 04/24/19 New Medications: Dicyclomine [Bentyl*] 10 mg PO BID PRN #20 cap PRN Reason: Muscle Spasms Ondansetron HCl [Zofran] 4 mg PO TID PRN #10 tablet PRN Reason: Nausea / Vomiting Pantoprazole [Protonix Tab] 40 mg PO DAILY #30 tab Patient Discharge Instructions: 1. Recommend follow up with PCP within 1-2 weeks to follow up this hospitalization. 2. Patient presented with chronic abdominal pain, nausea and vomiting. Patient has seen surgery recently. Recent CT scan of the abdomen unremarkable for a GI related cause. Abdominal ultrasound also unremarkable. Patient was admitted for further evaluation. HIDA scan performed. HIDA scan was also unremarkable. Case discussed at length with surgery. No need for surgical intervention at this time. Surgery recommends EGD as an outpatient. Patient reports history of EGD done in the distant past. There was some concern of hiatal hernia. She has not been taking any medication. At discharge lab unremarkable. Patient with increase anxiety. No significant abdominal pain noted. No further vomiting noted. At discharge will recommend Protonix 40 mg daily and Bentyl 10 mg twice daily as needed for abdominal discomfort. Zofran 4 mg 3 times a day as needed for nausea will be provided as well. Patient will follow up with surgery for outpatient EGD on Sunday. Patient will continue with a full liquid diet and advance to a GI soft. Education on GERD/hiatal hernia provided. 3. Patient also has increased anxiety. Patient with recent loss of family member. Patient reports increased stress at home. She is a mother of 4 with poor family support. Patient was given antianxiety medication prior to HIDA scan due to claustrophobia. Will recommend psychiatric evaluation as an outpatient to further address. Patient would benefit with grief loss counseling. Recommend follow up with a PCP to further address. Diet: Full liquid diet, advanced to GI soft Activity: Ad ahsan Time spent managing pt's care (in minutes): 50
[2019-04-24] MEDS ORDERED: SODIUM CHLORIDE 0.9% 10ML INJ IV PRN (12:57)
[2019-04-24] MEDS ORDERED: TRAMADOL HCL 50 MG TAB PO PRN (12:58)
[2019-04-24] MEDS: HYDROCODONE/APAP 7.5/325 MG TAB PO PRN ×2 (13:53→20:10)
[2019-04-24 18:01] LABS: Specific Gravity 1.025 (1.005-1.030)
[2019-04-24] MEDS: DICYCLOMINE HCL 10 MG CAP PO SCH (20:11)
[2019-04-24] MEDS: PANTOPRAZOLE 40 MG INJ IVP SCH (20:24)
--- NOTE | 2019-04-24 22:27 | CON ---
Date of Consultation: 04/24/2019 Brief History Of Present Illness: Patient is a 38-year-old female with a history of abdomi nal epigastric pain and nausea with vomiting persistently. I saw her in my clinic this last week and began a workup on this patient for the above stated complaints. She had had multiple imaging modali ties which did not delineate the cause of her pain and issues. She reports she had a HIDA scan in past which was negative in this past several months, but this was unable for my review at the time of my visit with her in clinic. Her records were requested in addition to her ultrasound and CT of t he abdomen. She experienced persistent nausea and vomiting beginning yesterday and it got worse over the course of the evening and as such because of persistent nausea and vomiting did not break, she h ad the continuing and worsening abdominal pain associated with the heaving and she came to the emerge ncy room with the above-stated complaints. Past Medical History: Significant for staph infection, nephrolithiasis, PLTCS in 2006, 2009, 2012. Past Surgical History: Includes appendectomy, . Home Medications: Include Tylenol with codeine. Allergies: EGG. Family History: Hypertension, cancer. She smokes cigarettes everyday. She smokes marijuana everyda y, average 1 to twice a day. She denies alcohol use. Review of Systems: 10-point review of systems other than in HPI, denies. Physical Examination: Vital Signs: At the time of my examination her BMI is 36.8. Her vital signs were blood pressure 108 /56, pulse 64, respiratory rate 17, temperature 97.5. General: She is awake, alert, oriented. Psychiatric: Appropriate, conversive. HEENT: Normocephalic. Sclerae icteric. Mucous membranes are moist. Oropharynx clear. Neck: Supple. No JVD. Chest: Normal expansion and excursion. Cardiovascular: Regular rate and rhythm. Pulmonary: Clear to auscultation bilaterally. Abdomen: Soft, nontender, nondistended. No rebound. No guarding. No focal peritonitis. Barba si gn negative. Extremities: No clubbing, cyanosis, or edema. Skin: Warm, dry. Laboratory Data: Reveals a white blood count of 9.2, hemoglobin 13.2, hematocrit of 39.3, platelet c ount is 294. Neutrophils are normal at 51%. Her sodium was 140, potassium 3.7, chloride 114, carbon dioxide 21, BUN 10, creatinine 0.8. Her PT was 12.0, INR 1.02, PTT is 30.8. Her glucose was 94, ca lcium 8.1. AST was normal at 11, ALT was 22 on admission. Alkaline phosphatase was 63. Her lipase was 66 on admission. She had imaging performed which included a HIDA scan which is normal, officiall y read as gallbladder ejection fraction at 90%. No acute cholecystitis. Assessment And Plan: This is a 38-year-old female who presents with persistent nausea and vomiting, hyperemesis, and epigastric abdominal pain. 1.IV fluid hydration. 2.Continue medical management. 3.Continue workup for epigastric abdominal pain. I have explained the risks, benefits, and alternatives of EGD including, but not limited to bleeding, infection, damage to surrounding tissues, intestinal perforation, need for further operation and pro cedure and patient agrees to proceed as indicated. ERROL/NORI Voice ID: [id number] Report ID: [id number]
[2019-04-24] MEDS ORDERED: DIPHENHYDRAMINE 25 MG TAB/CAP PO ONE (23:24)
[2019-04-25] MEDS: NA CHLORIDE 0.9% 1,000 ML IV SCH (03:00)
[2019-04-25] MEDS: DICYCLOMINE HCL 10 MG CAP PO SCH (07:53)
[2019-04-25] MEDS: ONDANSETRON 4 MG/2 ML VIAL IV PRN (07:54)
[2019-04-25] MEDS: LORazepam 2 MG/ML VIAL IV PRN (07:54)
[2019-04-25] MEDS: PANTOPRAZOLE 40 MG INJ IVP SCH (07:55)
[2019-04-25] MEDS ORDERED: NA CHLORIDE 0.9% 1,000 ML ONE (09:28)
[2019-04-25] MEDS ORDERED: propofoL 200 MG/20 ML VIAL IV ONE ×2 (09:49→10:16)
[2019-04-25] MEDS ORDERED: LIDOCAINE 1% MPF 5 ML VIAL ONE (09:49)
[2019-04-25] MEDS ORDERED: HYDROCODONE/APAP 7.5/325 MG TAB ONE (10:40)
[2019-04-25] MEDS: HYDROCODONE/APAP 7.5/325 MG TAB PO PRN (10:41)
[2019-04-25 11:12] VITALS: BP 109/42; TEMP 97.7; O2SAT 97
== END 2019-04-25 12:16 | disposition home or self-care (01) ==
LOC: ER 17:22 → ERHOLD 20:58 → 4TH 22:20
PROVIDERS: ADMIT Hospitalist; ATTEND Hospitalist
PROC: 0DB68ZX Excision of Stomach, Via Natural or Artificial Opening Endoscopic, Diagnostic (ICD-10-PCS; principal; 2019-04-25 09:45)
DX: K29.70 Gastritis, unspecified, without bleeding (principal); K20.9 Esophagitis, unspecified; R11.2 Nausea with vomiting, unspecified; F41.9 Anxiety disorder, unspecified; E66.9 Obesity, unspecified; Z68.36 Body mass index [BMI] 36.0-36.9, adult; F43.10 Post-traumatic stress disorder, unspecified; F12.90 Cannabis use, unspecified, uncomplicated
CPT/HCPCS: 96361; 85025 ×2; 80048; 36415; 88312; 81025; 85610; 80061; 80076; 88305; 85730; 83690; 80053; 78227; 96375; 96374; 99285; 43239; J2704 ×2; J2765; C9113 ×2; J2270 ×2; G0378 ×4; J7030 ×5; J2405 ×5; J2805; A9537

== ENCOUNTER 2023-01-23 04:32 | Emergency (ER) | payer BC ==
--- OUTSIDE RECORDS SUMMARY | 2023-01-23 04:36 | XMS REPORT | Continuity of Care Document ---
:[address] [facility] t Address [address] [place] [address] Care Team Providers Name Role Phone BEVERLY IXE Primary Care Physician Unavailable MAGGY QUEEN Attending Clinician Unavailable Maggy Queen DO Attending Clinician JERRY ENCISO Attending Clinician Unavailable Jerry Enciso MD Attending Clinician Polly Araiza Attending Clinician Unavailable Physician, No Primary or Family Admitting Clinician Unavaila ble Payers Payer Name Policy Type Policy Number Effective Date Expiration Date S wang [facility] - [id number] 2017 00:00:00 OUT OF STATE Problems Condition Condition Condition Status Onset Resolution Last Treating Co mments Source Name Details Category Date Date Treatment Clinician Date Esophageal Esophageal Disease Active U nivers ulcer ulcer 01-12 ity of 00:00: [address] Dehydratio Dehydratio Disease Active U nivers n n 01-10 ity of 00:00: [address] Intractabl Intractabl Disease Active 2017-0 U nivers e vomiting e vomiting 01-09 it y of 00:00: [place] 00 [facility] Allergies, Adverse Reactions, Alerts Allergy Allergy Status Severity Reaction(s) Onset Inactive Treating Comm ents Source Name Type Date Date Clinician No Known DA Active U 2019-0 [facility]-30 Clear s 00:00: [place] [facility] No Known DA Active U 2020-0 [facility] Allergie 5-30 Clear s 00:00: [place] 00 [facility] NO KNOWN Drug Active Univers ALLERGIE Class ity of S [facility] Social History Social Habit Start Date Stop Date Quantity Comments Source History of tobacco Cigarette Smoker University of use [facility] Exposure to 2022-03-16 2022-03-26 Not sure [facility] SARS-CoV-2 (event) 00:00:00 14:46:00 [facility] Alcohol intake 2017-01-12 2017-01-12 Current drinker Unive rsity of 00:00:00 00:00:00 of alcohol [facility] (finding) Branch Cigarettes smoked 2017-01-09 2017-01-09 Univers ity of current (pack per 00:00:00 00:00:00 [facility] ) - Reported Branch Tobacco Comment 2017-01-09 2017-01-09 1 Cpack every 2 Univ ersity of 00:00:00 00:00:00 days [facility] Sex Assigned At [birth year] Universit y of 00:00:00 00:00:00 [facility] Smoking Status Start Date Stop Date Source Smokes tobacco daily 2017-01-09 00:00:00 [facility] ity [facility] Medications Ordered Filled Start Stop Current Ordering Indication Dosage Frequency Signature Comments Components Source Medication Medication Date Date Medication? Clinician (SIG) Name Name ondansetron 2021-05 No 4mg 4 mg, Univ ers (ZOFRAN-ODT 05-26 Oral, ity of ) 22:00: 21:49 ONCE, 1 [place] disintegrat 00 :00 dose, On Medi evan ing tablet [place] [facility] 4 mg 03/26/22 at 1600, Routine ibuprofen 2021-05 No 600mg 600 mg, Uni vers (IBU) 05-26 Oral, ity of tablet 600 21:00: 21:49 ONCE, 1 [place] as mg 00 :00 dose, On Medical [place] [facility] 03/26/22 at 1500, JOVON methylPREDN 2020-0 Yes [id number] Take by [facility] 11-12 [id number] mouth ity of (MEDROL, 00:00: SEE-INSTRU [place] as OLLIE,) 4 mg 00 CTIONS. Medica l tablets follow Branch package directions methylPREDN 2020-0 Yes [id number] Take by [facility] 11-12 [id number] mouth ity of (MEDROL, 00:00: SEE-INSTRU Joel as OLLIE,) 4 mg 00 CTIONS. Medica l tablets follow Branch package directions methylPREDN 2020-0 Yes [id number] Take by [facility] 11-12 [id number] mouth ity of (MEDROL, 00:00: SEE-INSTRU Joel as OLLIE,) 4 mg 00 CTIONS. Medica l tablets follow Branch package directions traMADOL 50 2017-0 Yes 50mg Take 1 Univ ers mg tablet 9-08 tablet by ity o f 00:00: mouth [place] 00 every 8 Medical (eight) Branch hours as needed for Pain (scale 4-6) or Pain (scale 7-10). ondansetron 2017-0 Yes 4mg Take 1 Univ ers 4 mg tablet 9-08 tablet by ity of 00:00: mouth [place] 00 every 6 Medical (six) Branch hours as needed for Nausea and Vomiting (N/V). traMADOL 50 2017-0 Yes 50mg Take 1 Univ ers mg tablet 9-08 tablet by ity o f 00:00: mouth [place] 00 every 8 Medical (eight) Branch hours as needed for Pain (scale 4-6) or Pain (scale 7-10). ondansetron 2017-0 Yes 4mg Take 1 Univ ers 4 mg tablet 9-08 tablet by ity of 00:00: mouth [place] 00 every 6 Medical (six) Branch hours as needed for Nausea and Vomiting (N/V). traMADOL 50 2017-0 Yes 50mg Take 1 Univ ers mg tablet 9-08 tablet by ity o f 00:00: mouth [place] 00 every 8 Medical (eight) Branch hours as needed for Pain (scale 4-6) or Pain (scale 7-10). ondansetron 2017-0 Yes 4mg Take 1 Univ ers 4 mg tablet 9-08 tablet by ity of 00:00: mouth [place] 00 every 6 Medical (six) Branch hours as needed for Nausea and Vomiting (N/V). Vital Signs Vital Name Observation Time Observation Value Comments Source Systolic blood 2022-03-26 20:43:00 154 mm[Hg] Univer sity of pressure [facility] Diastolic blood 2022-03-26 20:43:00 88 mm[Hg] Unive rsity of pressure [facility] Heart rate 2022-03-26 20:43:00 98 /min [facility]i ty [facility] Body temperature 2022-03-26 20:43:00 36.56 Sherita Univ ersity of [facility] Respiratory rate 2022-03-26 20:43:00 18 /min Univ ersity of [facility] Body weight 2022-03-26 20:43:00 63.504 kg Universi ty [facility] BMI 2022-03-26 20:43:00 22.60 kg/m2 Universi ty of [facility] Oxygen saturation in 2022-03-26 20:43:00 99 /min [facility] Arterial blood by [facility] Pulse oximetry Branch Systolic blood 2019-11-13 14:09:00 116 mm[Hg] Univer sity of pressure [facility] Diastolic blood 2019-11-13 14:09:00 74 mm[Hg] Unive rsity of pressure [facility] Branch Respiratory rate 2019-11-13 14:09:00 18 /min [facility] Body height 2019-11-13 14:09:00 167.6 cm Universi ty [facility] Body weight 2019-11-13 14:09:00 90.719 kg Universi ty [facility] BMI 2019-11-13 14:09:00 32.28 kg/m2 Universi ty [facility] Procedures Procedure Date / Time Performed Performing Clinician [facility] e NOTICE OF PRIVACY 2022-03-26 20:36:23 Doctor Unassigned, No Univ ersity [facility] PRACTICES Name Medical Branch CONSENT/REFUSAL FOR 2022-03-26 20:33:44 [facility], [facility] Name [facility] Branch TREATMENT [id number] 2019-10-10 00:00:00 [facility] [id number] 2019-10-10 00:00:00 [facility] Encounters Start End Encounter Admission Attending Care Care Encounter Source Date/Time Date/Time Type Type Clinicians Facility Department ID 2019-10-04 Inpatient PREM REESE [id number] [facility] 12:28:00 83 [facility] 2022-03-26 2022-03-26 Emergency X [facility] ERT [id number] Univers 14:47:00 16:46:00 MAGGY [facility] 2022-03-26 2022-03-26 [facility] [id number] Univers 14:47:00 16:46:00 [facility] [id number] [facility] [id number] [facility] [id number] [address] 2019-11-13 2019-11-13 [facility] [id number] Univers 09:45:00 09:45:00 [facility] 2019-11-13 2019-11-13 Office [facility] [id number] Univers 09:04:47 09:41:[address] [facility] [id number] [facility] [id number] [facility] [id number] Ks dical es 198 [facility] 2019-10-04 2019-10-04 Outpatient DANIEL Araiza [id number] [facility] 23:54:00 23:54:[address] [place] [address] Results Test Description Test Time Test Comments Results Result Sour e Comments SURG 2019-10-13 15:39:00 ----RUN DATE: 10/13/19 LUKE [place] - MAXINE PAGE 1 RUN TIME: 1539 Specimen Inquiry RUN USER: INTERFACE ----PATIENT: MIKKI ZULUAGA LOC: Scottie U #: [id number] AGE/SX: 39/F ROOM: [facility] RE10/04/19REG DR: Polly Araiza MD : 79 BED: 1 DIS: 10/10/19 STATUS: DIS IN TLOC: ---- SPEC #: [id number] RECD: 10/10/19 STATUS: CHRISSY REQ #: [id number] ANA: 10/10/19 [facility] DR: Polly Araiza MD ENTERED: 10/10/19 SP TYPE: SURG OTHR DR: No Primary or Family Physician Self Referred Rob Stevens MD, Bilal MDORDERED: AB/PAS MARTÍNEZ, SURG PATH LVL 4/2, PATH STAIN GROU COPIES TO: No Primary or Family [place] [address] [place], [place] [id number] Rob Stevens MD [address] [place] [address] Steven Crisostomo MD [address] [place] [address] HISTOLOGY: TISSUE ID BLK PCS MING LEV PROCEDURE DISPOSITION ____ ___ ___ ___ DUODENUM, NOS A 1 2 STOMACH, NOS B 1 1 AB/PAS MARTÍNEZ STOMACH, NOS B 1 2 PATH STAIN GROU PROCEDURES: ALBLUE (10/10/19-1316) PAS (10/10/19-1316) SURG PATH LVL 4 (10/10/19-1315) PATH STAIN GROU (10/10/19-1316) TISSUES: A. DUODENUM, NOS - DUODENUM BIOPSY B. STOMACH, NOS - STOMACH BIOPSY CONTINUED ON NEXT PAGE ----RUN DATE: 10/13/19 [facility] PAGE 2 RUN TIME: 1539 Specimen Inquiry RUN USER: INTERFACE ----SPEC #: [id number] PATIENT: MIKKI ZULUAGA #[id number] (Continued) CLINICAL HISTORY PYELONEPHRITIS CPT CODES CPT CODE(S): 89699T2 , 96033 , 59199 , , , , FINAL DIAGNOSIS A. Small intestine, duodenum, biopsy: DUODENUM WITH UNREMARKABLE VILLI B. Stomach, biopsy: MILD CHRONIC GASTRITIS NEGATIVE FOR INTESTINAL METAPLASIA, DYSPLASIA, OR MALIGNANCY NEGATIVE FOR HELICOBACTER PYLORI ORGANISMS GROSS DESCRIPTION A. Duodenum biopsy. Received in formalin are three sorensen tissue fragments, 0.1 - 0.2 cm, all as A. B. Stomach biopsy. Received in formalin are two sorensen tissue fragments, 0.3 cm each, all as B. ba/nr Grossing performed at [facility] Pathology, [address] [place] [address], [address], [place] [address]. Orthodontist: Jorge Camp M.D. MICROSCOPIC DESCRIPTION A. Duodenum biopsy. Sections demonstrate duodenum with unremarkable villi. No evidence of villous blunting or increased intraepithelial lymphocytes is seen. B. Stomach biopsy. Sections demonstrate gastric mucosa with mild chronic inflammation. No dysplasia or malignancy is identified. Alcian blue-PAS confirm the absence of intestinal metaplasia. The Diff Quik stain demonstrates no evidence of Helicobacter pylori organisms. Signed SIGNATURE ON FILE Neftaly Beckford 10/13/19 1539 ---- END OF REPORT Coronavirus 2018 nCoV Bedside 2019-10-09 10:45:00 Test Item Value Reference Range Interpretation Comme nts Coronavirus 2019 nCoV Bedside (test code = COVNONPUIBED) Negative NEGATIVE BASIC METABOLIC [id number] 07:24:00 Test Item Value Reference Range Interpretation Comments SODIUM (test code = NA) 137 mmol/L 134-147 N POTASSIUM (test code = 4.2 mmol/L 3.4-5.0 N K) CHLORIDE (test code = 105 mmol/L 100-108 N CL) CARBON DIOXIDE (test 25 mmol/L 21-32 N code = CO2) ANION GAP (test code = 7.0 GAP calc 4.0-15.0 N GAP) GLUCOSE (test code = 97 MG/DL 70-110 N GLU) BLOOD UREA NITROGEN 8 MG/DL 7-18 N (test code = BUN) GLOMERULAR FILTRATION >=60 max estimate >60 RATE (test code = GFR) estGFR CREATININE (test code = 0.7 MG/DL 0.6-1.0 N CREAT) CALCIUM (test code = CA) 9.1 MG/DL 8.5-10.1 N CBC W/AUTO [id number] 07:07:00 Test Item Value Reference Range Interpretation Comments WHITE BLOOD CELL (test code = 6.0 K/mm3 3.5-11.0 N WBC) RED BLOOD CELL (test code = 3.99 M/mm3 4.70-6.10 L RBC) HEMOGLOBIN (test code = HGB) 10.6 G/DL 10.4-14.9 N HEMATOCRIT (test code = HCT) 33.7 % 31.5-44.1 N MEAN CELL VOLUME (test code = 84.5 Fl 84.5-98.6 N MCV) MEAN CELL HGB (test code = MCH) 26.6 pg 27.0-34.2 L MEAN CELL HGB CONCETRATION 31.5 G/DL 31.5-34.0 N (test code = MCHC) RED CELL DISTRIBUTION WIDTH 14.5 SD 11.5-14.5 N (test code = RDW) PLATELET COUNT (test code = 453 K/mm3 150-450 H PLT) MEAN PLATELET VOLUME (test code 10.70 fL 7.0-10.5 H = MPV) NEUTROPHIL % (test code = NT%) 48.5 % 40-76 N LYMPHOCYTE % (test code = LY%) 36.3 % 20.5-51.1 N MONOCYTE % (test code = MO%) 9.7 % 1.7-9.3 H EOSINOPHIL % (test code = EO%) 4.2 % 0.0-6.0 N BASOPHIL % (test code = BA%) 0.8 % 0.0-2.0 N NUCLEATED RBC % (test code = 0.0 /100WBC% 0.0-1.0 N NRBC%) NEUTROPHIL # (test code = NT#) 2.9 K/mm3 1.8-7.6 N IMMATURE GRANULOCYTE # (test 0.03 x10 3/uL 0.00-0.03 N code = IG#) LYMPHOCYTE # (test code = LY#) 2.2 K/mm3 0.6-3.2 N MONOCYTE # (test code = MO#) 0.6 K/mm3 0.3-1.1 N EOSINOPHIL # (test code = EO#) 0.3 K/mm3 0.0-0.4 N BASOPHIL # (test code = BA#) 0.1 K/mm3 0.0-0.1 N NUCLEATED RBC # (test code = 0.0 K/mm3 0.0-0.1 N NRBC#) MANUAL DIFF REQUIRED (test code NO DIFF/SCN CRITERIA = MDIFF) - HEPA IMAG INCL GB W [id number] 16:22:00 FAX: Polly Mccullough MD [phone] Camps: PM St: ADM FAX: Efren Tripp MD Name: MIKKI ZULUAGA [facility] : 1980 Age/S: 39/F [address] [facility] Unit #: [id number] Loc: [address] [place] [address] Phys:Efren Montez MD Acct: [id number] Dis Date: Status: ADM IN PHONE #: [phone] Exam Date: 020 1605 FAX #: Reason: evaluate for acute cholecystitis EXAMS: CPT: [id number] HEPA IMAG INCL GB W PHA [id number] HIDA scan. DIAGNOSIS: evaluate for acute cholecystitis Comparison: Ultrasound study of 10/08/2019 is reviewed. LOCATION: C3 Approximately 5.4 mCi of technetium 99m Choletec was administered intra venously. Dynamic imaging was performed for 1 hour. There is prompt homogeneous accumulation of the radionuclide within a normal-size liver. There is rapid excretion into bile ducts, gallbladder and bowel. The gallbladder is confidently seen at 10 minutes. Radiotracer appears in the small bowel by 20minutes. During the dynamic acquisition, the gallbladder spontaneously decompresses and empties the radiotracer. Visually, the gallbladder ejection fraction is greater than 30%. Reliable gallbladder ejection calculation could not be obtained. IMPRESSIONS: Normal HIDA scan. Visual ejection fraction greater than 30%. at 1622 Reportedand signed by: Joshua Fam M.D. PAGE 1 Signed Report (CONTINUED) FAX: Polly Mccullough MD [phone] Camps: PM St: ADM FAX: Efren Tripp MD Name: MIKKI ZULUAGA [place] : 1980 Age/S: 39/F [address] Unit #: [id number] Loc: [address] [place] [address] Phys: Efren Montez MD Acct: [id number] Dis Date: Status: ADM IN PHONE #: [phone] Exam Date: 10/08/2019 1605 FAX #: Reason: evaluate for acute cholecystitis EXAMS: CPT: [id number] HEPA IMAG INCL GB W PHA [id number] (Continued) CC: Polly Araiza MD; Efren Montez MD Technologist: YOLANDA Pratt Transcribed Date/Time/By: 10/08/2019 (1621) :[email or web address] Orig Print D/T: S: 10/08/2019 (1624) PAGE 2 Signed Report- US ABDOMEN [id number] 08:52:00 Name: MIKKI ZULUAGA [facility] : 1980 Age/S: 39 / F [address] Unit #: [id number] Loc: [place] [address] Phys: Steven Crisostomo MD Acct: [id number] Dis Date: Status: ADM IN PHONE #: [phone] Exam Date: 10/08/2019814 FAX #: Reason: pyelo/pain upper abdomen EXAMS: CPT: [id number] US ABDOMEN COMPLETE 64338 EXAM: - US ABDOMEN COMPLETE HISTORY: pyelo/pain upper abdomen Location code:S17 TECHNIQUE: Survey ultrasound imaging of the complete abdomen was performed including color Doppler evaluation of the main portal vein with sales representative printing supplies images obtained. COMPARISON: CT abdomen and pelvis 10/06/2019 FINDINGS: Statements: None. Liver: Right hepatic lobe length: 12 cm Parenchyma/Contour: Unremarkable. Main portal vein: Patent with normal (hepatopetal) flow. Biliary ducts: No intrahepatic biliary ductal dilation. Common duct measures 4 mm in diameter at the dena hepatis. Gallbladder: Contracted. No evidence of intraluminal shadowing stone or sludge. No pericholecystic fluid. Gallbladder wall mildly thickened up to 0.6 cm, likely accentuated by its underdistended state. No pericholecystic fluid. The technologist reports a negative sonographic Barba's sign. Pancreas: Limited, due to overlying bowel gas. The visualized portions of the pancreatic body are mildly echogenic, nonspecific but otherwise unremarkable. Spleen: The spleen has a normal sonographic appearance. Right Kidney: The right kidney has a normal sonographic appearance. No solid mass lesion is seen. No hydronephrosis is present. Renal cortical thickness and echogenicity is within normal limits. Length: 11.6 cm Left Kidney: The left kidney has a normal sonographic appearance. No solid mass lesion is seen. No hydronephrosis is present. Renal cortical thickness and echogenicity is within normal limits. Length: 11.2 cm PAGE 1 Signed Report (CONTINUED) Name: MIKKI ZULUAGA [place] : 1980 Age/S: 39 / F [address] Unit #: [id number] Loc: [place] [address] Phys: Steven Crisostomo MDAcct: [id number] Dis Date: Status: ADM IN PHONE #: [phone] Exam Date: 10/08/2019 08 FAX #: Reason: pyelo/pain upper abdomen EXAMS: CPT: [id number] US ABDOMEN COMPLETE 41974 (Continued) Vessels: The visualized IVC in the upper abdomen is unremarkable. The visualized aorta in the upper abdomen is unremarkable. Other: No ascites in the visualized abdomen. IMPRESSION: 1. Contracted gallbladder which limits evaluation and mild gallbladder wall thickening, likely accentuated by the gallbladder'scontracted state. No cholelithiasis, pericholecystic fluid or sonographic Barba's sign. Findings are equivocal, and if there is a persistent concern for acute cholecystitis, nuclear medicine HIDA scan may be performed for evaluation of cystic duct patency. No biliary dilatation/obstruction. 2. Otherwise, unremarkable abdominal ultrasound. Electronically Signed by Cezar Wilburn on 10/08/2019 at 0852 Reported and signed by: Alisa Wilburn M.D. CC: Polly Araiza MD; Steven Crisostomo MD Technologist: April Perez, RT(R),RDMS(AB) Trniab Date/Time: 10/08/2019 (851) [email or web address] PAGE 2 Signed Report Name: MIKKI ZULUAGA [facility] : 1980 Age/S: 39 / F [address] [place] [address] Unit #: [id number] Loc: [place] [address] Phys: Steven Crisostomo MD Acct: [id number] Dis Date: Status: ADM IN PHONE #: [phone] Exam Date: 10/08/2019 08 FAX #: Reason: pyelo/pain upper abdomen EXAMS: CPT: [id number] US ABDOMEN COMPLETE [address] (Continued) Orig Print D/T: S: 10/08/2019(0855) Probe: PAGE 3 Signed ReportDRUGS OF ABUSE SCREEN [id number] 06:29:00 Test Item Value Reference Range Interpretation Comments URN COCAINE (test code = NEGATIVE SCcutoff <300 NG/ML COCAURN) URN CANNABINOIDS (test code POSITIVE SCcutoff <50 NG/ML A = CANNABURN) URN AMPHETAMINE (test code NEGATIVE SCcutoff <1000 NG/ML = AMPHETURN) URN BARBITURATE (test code NEGATIVE SCcutoff <200 NG/ML = BARBITURN) URN BENZODIAZEPINE (test NEGATIVE SCcutoff <200 NG/ML code = BENZOURN) URN OPIATES (test code = POSITIVE SCcutoff <2000 NG/ML A OPIATURN) URN PHENCYCLIDINE (PCP) NEGATIVE SCcutoff <25 NG/ML (test code = PHENCURN) URN METHADONE (test code = NEGATIVE SCcutoff <300 NG/ML METHAURN) - CT ABD PELVIS [id number] 16:30:00 Name: MIKKI ZULUAGA [facility] : 1980 Age/S: 39 / F [address] Unit #: [id number] Loc: [place] [address] Phys: Efren Montez MD Acct: [id number] Dis Date: Status: ADM IN PHONE #: [phone] Exam Date: 10/06/2019 7547 FAX #: Reason: R/O KIDNEY STONES EXAMS: CPT: [id number] CT ABD PELVIS W/CONT 57843 HISTORY: R/O KIDNEY STONES EXAM TYPE: CT abdomen and pelvis with IV contrast. Location: S 17 TECHNIQUE: Contrast - IV contrast was given, no oral contrast was given Portal venous phase - abdomen and pelvis No delayed phase images were obtained. Reconstructions - coronal and sagittal planes One or more of the following dose reduction techniques were used: Automated exposure control, adjustment of the mA and/or kV according to patient size, and/or utilization of iterative reconstruction technique. COMPARISON: None FINDINGS: Statements: None. Thoracic: Included images of the lower chest demonstrates mild linear scarring/atelectasis at the left lung base. Otherwise, No abnormalities. Hepatobiliary: The liver is normal without focal lesion. The gallbladder is normal. No biliary dilation. Pancreas: Normal. Spleen: Normal. Adrenals: Normal. Genitourinary: The kidneys enhance symmetrically. There is a 3 mm nonobstructing renal stone present within the right interpolar region (coronal image 49), and a 4 mm nonobstructing stone within the left interpolar region (coronal image 56). No evidence of hydronephrosis. No wedge-shaped areas to suggest decreased renal perfusion. Mild left-sided perinephric stranding, nonspecific. No suspicious renal mass. Normal caliber ureter isnoted bilaterally without evidence of ureteral stones. Evaluation of the bladder is limited, but no obvious bladder abnormality is present. Reproductive organs are unremarkable. Gastrointestinal: No bowel obstruction or perienteric inflammation. PAGE 1 Signed Report (CONTINUED) Name: MIKKI ZULUAGA : 1980 Age/S: 39 / F [address] Unit #: [id number] Loc: [place] [address] Phys: Efren Montez MD Acct: [id number] Dis Date: Status: ADM IN PHONE #: [phone] ExamDate: 10/06/2019 1604 FAX #: Reason: R/O KIDNEY STONES EXAMS: CPT: [id number] CT ABD PELVIS W/CONT 19459 (Continued) The appendix is not visualized but there is high density postsurgical change noted near the base of the cecum, correlate clinically for prior appendectomy. Moderate stool burden seen throughout segments of colon and rectum. Vascular: No evidence of aneurysm or dissection. Lymphatics: No enlarged lymph nodes by CT size criteria. Bones/Soft Tissues: No acute osseous findings. No ventral hernias. Peritoneum/Other: No extraluminal air. No extraluminal fluid. IMPRESSION: 1. Bilateral nonobstructing 3-4 mm renal calculi. No evidence of hydronephrosis. No ureteral stone seen. at 1630 Reported and signed by: Alisa Wilburn M.D. CC: Polly Araiza MD; Efren Montez MD Technologist:RT Gary(R)(CT)(MRI) CTDI: DLP: Trnscb Date/Time: 10/06/2019 (1630) [email or web address] Orig Print D/T: S: 10/06/2019 (1633) PAGE 2 Signed ReportUR HCG [id number] 14:49:00 Test Item Value Reference Range Interpretation Comments UR HCG QUAL (test code = HCGQLU) NEGATIVE NEGATIVE Novel Coronavirus 09:02:00 Test Item Value Reference Range Interpretation Comments Novel Coronavirus Negative Negative Positive r esults are 2019 Inhouse (test indicativ e of the presence code = [id number]) ofSARS-CoV -2 RNA, clinical correlation wit h patient historyand othe r diagnostic info rmation is necessary to determinepatien t infection status. Positiv e results do not rule out bacterial infection or co -infection with other viru ses. Negative result s do not preclude SARS-C oV-2 infection andsh ould not be used as the willie e basis for patient managementdecis ions. Negative result s must be combined with otherclinical observations, p atient history, and epidemiological information . Detection of SARS-CoV-2 RNA may be affe cted bysample collec tion methods, storag e conditions, and /or stageof infection. Patricia l RNA mutations, vacc inations, antiviraltherap eutics, antibiotics, chemotherapeuti c orimmunosuppres zohra drugs have not been e valuated for effectson d etection. Results are for the identification of SARS-CoV-2 RNA usingthe Dominguez M2000 Sy stem under the FDA Emergen cy UseAuthorizatio n. The testing is perf ormed by jesús doan in the procedures for the Dominguez M2000 molecular diagnostic SARS-CoV-2 assa y in vitro. Testing Criteria: FeverNovel Coronavirus [id number] 09:02:00 Test Item Value Reference Range Interpretation Comments Novel Coronavirus Negative Negative Positive r esults are 2019 Inhouse (test indicativ e of the presence code = [id number]) ofSARS-CoV -2 RNA, clinical correlation wit h patient historyand othe r diagnostic info rmation is necessary to determinepatien t infection status. Positiv e results do not rule out bacterial infection or co -infection with other viru ses. Negative result s do not preclude SARS-C oV-2 infection andsh ould not be used as the willie e basis for patient managementdecis ions. Negative result s must be combined with otherclinical observations, p atient history, and epidemiological information . Detection of SARS-CoV-2 RNA may be affe cted bysample collec tion methods, storag e conditions, and /or stageof infection. Patricia l RNA mutations, vacc inations, antiviraltherap eutics, antibiotics, chemotherapeuti c orimmunosuppres zohra drugs have not been e valuated for effectson d etection. Results are for the identification of SARS-CoV-2 RNA usingthe [employer] M2000 Sy stem under the FDA Emergen cy UseAuthorizatio n. The testing is perf ormed by jesús doan in the procedures for the [employer] M2000 molecular diagnostic SARS-CoV-2 assa y in vitro. Testing Criteria: FeverUA RFLX MICR CULT IF [id number] 23:32:00 Test Item Value Reference Range Interpretation Comments UA COLOR (test code = YELLOW discript YEL/STRAW COLU) UA APPEARANCE (test code HAZY discript CLEAR A = APPU) UA GLUCOSE DIPSTICK (test NEGATIVE mg/dL NEG code = DGLUU) UA BILIRUBIN DIPSTICK NEGATIVE mg/dL NEG (test code = BILU) UA KETONE DIPSTICK (test NEGATIVE mg/dL NEG code = KETU) UA SPECIFIC GRAVITY (test 1.010 SG 1.005-1.030 code = SGU) UA BLOOD DIPSTICK (test 3+ mg/DL NEG A code = ERLIN) UA PH DIPSTICK (test code 6.0 pH UNITS 5.0-7.0 = MICHAEL) UA PROTEIN DIPSTICK (test NEGATIVE mg/dL NEG code = PROU) UA UROBILINIOGEN DIPSTICK 0.2 mg/dL <2.0 (test code = URO) UA NITRITE DIPSTICK (test NEGATIVE SCREEN NEG code = HERBERT) UA LEUKOCYTE ESTERASE 1+ Leuk/mcL NEGATIVE A DIPSTICK (test code = LEUU) UA WBC (test code = WBCU) 20-30 #WBC/HPF 0-3 A UA RBC (test code = RBCU) 5-10 #RBC/HPF 0-3 A UA BACTERIA (test code = TRACE /HPF NONE-TRACE BACU) UA SQUAMOUS CELLS (test 1+ /HPF NONE A code = SQU) UA CULTURE NEEDED? (test YES,WBC>10 & EPI<25 Culture CHK code = UACULT) Criteria SOURCE OF URINE: STRAIGHT CATHETERIndication for culture: Dysuria/Frequency Flank PainUA RFLX MICR CULT IF [id number] 23:26:00 Test Item Value Reference Range Interpretation Comments UA COLOR (test code = COLU) YELLOW discript YEL/STRAW UA APPEARANCE (test code = HAZY discript CLEAR A APPU) UA GLUCOSE DIPSTICK (test NEGATIVE mg/dL NEG code = DGLUU) UA BILIRUBIN DIPSTICK (test NEGATIVE mg/dL NEG code = BILU) UA KETONE DIPSTICK (test code NEGATIVE mg/dL NEG = KETU) UA SPECIFIC GRAVITY (test 1.010 SG 1.005-1.030 code = SGU) UA BLOOD DIPSTICK (test code 3+ mg/DL NEG A = ERLIN) UA PH DIPSTICK (test code = 6.0 pH UNITS 5.0-7.0 MICHAEL) UA PROTEIN DIPSTICK (test NEGATIVE mg/dL NEG code = PROU) UA UROBILINIOGEN DIPSTICK 0.2 mg/dL <2.0 (test code = URO) UA NITRITE DIPSTICK (test NEGATIVE SCREEN NEG code = HERBERT) UA LEUKOCYTE ESTERASE 1+ Leuk/mcL NEGATIVE A DIPSTICK (test code = LEUU) UA CULTURE NEEDED? (test code Criteria Culture CHK = UACULT) SOURCE OF URINE: STRAIGHT CATHETERIndication for culture: Dysuria/Frequency Flank PainCBC W/AUTO [id number] 14:20:00 Test Item Value Reference Range Interpretation Comments WHITE BLOOD CELL (test code = 9.1 K/mm3 3.5-11.0 N WBC) RED BLOOD CELL (test code = 3.91 M/mm3 4.70-6.10 L RBC) HEMOGLOBIN (test code = HGB) 10.4 G/DL 10.4-14.9 N HEMATOCRIT (test code = HCT) 33.4 % 31.5-44.1 N MEAN CELL VOLUME (test code = 85.4 Fl 84.5-98.6 N MCV) MEAN CELL HGB (test code = MCH) 26.6 pg 27.0-34.2 L MEAN CELL HGB CONCETRATION 31.1 G/DL 31.5-34.0 L (test code = MCHC) RED CELL DISTRIBUTION WIDTH 14.7 SD 11.5-14.5 H (test code = RDW) PLATELET COUNT (test code = 271 K/mm3 150-450 N PLT) MEAN PLATELET VOLUME (test code 10.60 fL 7.0-10.5 H = MPV) NEUTROPHIL % (test code = NT%) 60.7 % 40-76 N LYMPHOCYTE % (test code = LY%) 23.0 % 20.5-51.1 N MONOCYTE % (test code = MO%) 14.9 % 1.7-9.3 H EOSINOPHIL % (test code = EO%) 0.5 % 0.0-6.0 N BASOPHIL % (test code = BA%) 0.5 % 0.0-2.0 N NUCLEATED RBC % (test code = 0.0 /100WBC% 0.0-1.0 N NRBC%) NEUTROPHIL # (test code = NT#) 5.5 K/mm3 1.8-7.6 N IMMATURE GRANULOCYTE # (test 0.04 x10 3/uL 0.00-0.03 H code = IG#) LYMPHOCYTE # (test code = LY#) 2.1 K/mm3 0.6-3.2 N MONOCYTE # (test code = MO#) 1.4 K/mm3 0.3-1.1 H EOSINOPHIL # (test code = EO#) 0.1 K/mm3 0.0-0.4 N BASOPHIL # (test code = BA#) 0.1 K/mm3 0.0-0.1 N NUCLEATED RBC # (test code = 0.0 K/mm3 0.0-0.1 N NRBC#) MANUAL DIFF REQUIRED (test code NO DIFF/SCN CRITERIA = MDIFF) BASIC METABOLIC [id number] 14:13:00 Test Item Value Reference Range Interpretation Comments SODIUM (test code = NA) 135 mmol/L 134-147 N POTASSIUM (test code = 3.8 mmol/L 3.4-5.0 N K) CHLORIDE (test code = 107 mmol/L 100-108 N CL) CARBON DIOXIDE (test 21 mmol/L 21-32 N code = CO2) ANION GAP (test code = 7.0 GAP calc 4.0-15.0 N GAP) GLUCOSE (test code = 91 MG/DL 70-110 N GLU) BLOOD UREA NITROGEN 10 MG/DL 7-18 N (test code = BUN) GLOMERULAR FILTRATION >=60 max estimate >60 RATE (test code = GFR) estGFR CREATININE (test code = 0.7 MG/DL 0.6-1.0 N CREAT) CALCIUM (test code = CA) 7.8 MG/DL 8.5-10.1 L BASIC METABOLIC [id number] 14:06:00 Test Item Value Reference Range Interpretation Comments SODIUM (test code = NA) 135 mmol/L 134-147 N POTASSIUM (test code = K) 3.8 mmol/L 3.4-5.0 N CHLORIDE (test code = CL) 107 mmol/L 100-108 N CARBON DIOXIDE (test code = CO2) 21 mmol/L 21-32 N ANION GAP (test code = GAP) 7.0 GAP calc 4.0-15.0 N GLUCOSE (test code = GLU) 91 MG/DL 70-110 N BLOOD UREA NITROGEN (test code = 10 MG/DL 7-18 N BUN) GLOMERULAR FILTRATION RATE (test estGFR >60 code = GFR) CREATININE (test code = CREAT) MG/DL 0.6-1.0 CALCIUM (test code = CA) 7.8 MG/DL 8.5-10.1 L Notes Date/Time Note Provider Source 2019-10-10 17:09:00-00:00 [facility] ([facility]) Hospitalist Discharge Summary REPORT#:[id number] REPORT STATUS: Signed DATE:10/10/19 TIME:1709 PATIENT: MIKKI ZULUAGA UNIT #: [id number] ROOM/BED: [place] [id number] : 79 AGE: 39 SEX: F ATTEND: Angela Araiza MD ADM AUTHOR: Efren Montez MD * ALL edits or amendments must be made on the [employer]/computer document * PCP PCP PCP: PCP: No Primary or Family Physician Discharge to: home General Information Problem List/A P: 1. Pyelonephritis Date of admission: Observation Start Date: Date of admission: 10/04/19 Discharge date: 10/09/19 Discharge diagnosis: see hosp course Hospital course: HOSP COURSE This is a 39-year-old female with past medical history of anxiety, depression, PUD, PTSD, renal stones and migraines who presented to the emergency room with complaints of right-sided abdominal pa in and back pain. Had dysuria as well as urgency and frequency. . She was noted to have a fever of 102.3 prior to being evaluated at [facility]. She was transferred from [facility] emergency room in [facility] n Free Text DxA P Notes Free text DxA P notes: 1. Pyelonephritis Continue morphine 4 mg every 4 hours as needed Rocephin 1 g every 24 hours Antiemetics as needed Supportive management with antipyretics Cultures and urine culture neg Patient was noted to have hi gh fevers [facility] but none here-ruled out COVID [address] A/P with contrast as persistent pain- eval fo r abscsess vs kidney stone CT A/P no abscess- maco non obstructive kidney st ones Patient getting EGD today: shows gastritis, BID PPI on dc Pt. condition on discharge: fair Med Rec Med Rec Discharge meds: Continue taking these medications: clonazePAM (KlonoPIN) 0.5 MG TAB 0.5 MILLIGRAM ORAL THREE TIMES A DAY. Comments: TAKE 1 TABLET BY MOUTH THREE TIMES A DAY NEE DED FOR PAIN - SIG Obtained From [employer] traZODone (DESYREL) 150 MG TAB 150 MILLIGRAM ORAL BEDTIME. Comments: TAKE 1 TABLET BY MOUTH EVERYDAY AT BEDTIME - SI G Obtained From [employer] Start taking the following new medications: PANTOPRAZOLE DR (PROTONIX) 40 MG TAB.DR 40 MILLIGRAM ORAL EVERY 12 HOURS. Qty = 60 No Refills CIPROFLOXACIN (CIPRO) 500 MG TAB 500 MILLIGRAM ORAL EVERY 12 HOURS. Qty = 6 No Refills ACETAMINOPHEN/CODEINE (TYLENOL WITH CODEINE #3 3 00/30 MG) 300 MG-30 MG TAB 1 TABLET ORAL EVERY 4 HOURS NEEDED. as neede d for pain Qty = 24 No Refills ONDANSETRON (ZOFRAN) 4 MG TAB 4 MILLIGRAM ORAL EVERY 6 HOURS NEEDED. as ne eded for nausea and vomiting Qty = 30 No Refills Discharge Instructions Activity: as tolerated Additional instructions: fup with PCP 3-5 days Prescriptions: on chart Electronically Signed by Efren Montez MD on 09/23 at 1720 RPT #: [id number] END OF REPORT 2019-10-10 16:29:00-00:00 [facility] ([facility]) Post Anesthesia Evaluation REPORT#:[id number] REPORT STATUS: Signed DATE:10/10/19 TIME:1629 PATIENT: MIKKI ZULUAGA UNIT #: [id number] ROOM/BED: [place] [address] : 79 AGE: 39 SEX: F ATTEND: Angela Araiza MD ADM AUTHOR: Arlin Cardoso CRNA * ALL edits or amendments must be made on the [employer]/computer document * Post Anesthesia Evaluation Anes. changes from pre-op eval ORM Surgeries: Surgery Date and Time: 10/10/2019 1130 Primary Procedure: ESOPHAGOGASTRODUODENOSCOPY Anesthetic: TIVA Date: 10/10/19 Level of consciousness: no change, patient awake , able to answer questions, participate in this eval. Vital signs: Vital Signs: Date Time Temp Pulse Resp B/P B/P Pulse O2 O2 F low FiO2 Mean Ox Delivery Rate 10/09 1610 36.8 57 18 120/78 92.2 94 / 1139 36.6 58 18 119/82 94.5 93 / 1132 Nasal 2.566572 cannula / 1125 56 18 102/64 96 Room air / 1120 58 22 113/78 97 Room air / 1115 36.4 61 40 121/61 96 Nasal 2.940512 cannula / 1032 36.9 55 18 130/72 97 Room air 06/05 0848 59 16 149/86 106.6 06/05 0712 36.9 56 18 107/70 82.6 94 Cardiovascular: no change, CV system stable, vit al signs stable Respiratory/Airway: respiratory system stable, m aintains without support Pain: adequately controlled Hydration: adequate Temp status: normothermic Presence of N/V: no Anesthesia complications: no Other changes requiring f/u: none Conclusions: no apparent anes. issues Electronically Signed by Arlin Cardoso CRNA o n 10/10/19 at 1629 [facility] #: [id number] END OF REPORT 2019-10-10 10:57:00-00:00 [id number] [address] PATIENT NAME: MIKKI ZULUAGA ADMIT DATE: ACCOUNT NO: [id number] ROOM NO: L.S209 AGE: 39 REPORT TYPE: ENDOSCOPY REPORT SEX: F ADMITTING PHYSICIAN: Polly Araiza MD ATTENDING PHYSICIAN: Polly Araiza MD Patient Name: Mikki Arce Procedure Date : 10/10/2019 10:57 AM Date of : 1980 Gender: Female Attending MD: Duke Baumann MD Procedure: Upper GI endoscopy Indications: Iron deficiency anemia Providers: Duke Baumann MD (Doctor) Referring MD: Self Referred Requesting Provider: Medicines: Monitored Anesthesia Care Complications: No immediate complications. Procedure: Pre-Anesthesia Assessment: - Prior to the procedure, a History and Physica l was performed, and patient medications and allergie s were reviewed. The patient is competent. The risks and benefits of the procedure and the sedation opti ons and risks were discussed with the patient. All ques tions were answered and informed consent was obtained . Patient identification and proposed procedure were veri fied by the physician in the pre-procedure area. Menta l Status Examination: normal. Airway Examination: normal oropharyngeal airway and neck mobility. Respira tory Examination: clear to auscultation. CV Examinat ion: normal. Prophylactic Antibiotics: The patient d oes not require prophylactic antibiotics. Prior Anticoa gulants: The patient has taken no previous anticoagulant or antiplatelet agents. ASA Grade Assessment: III - A patient with severe systemic disease. After rev iewing the risks and benefits, the patient was deemed in satisfactory condition to undergo the procedure . The anesthesia plan was to use monitored anesthesia care (MAC). Immediately prior to administration of medications, the patient was re-assessed for ad equacy to receive sedatives. The heart rate, respiratory rate, oxygen saturations, blood pressure, adequacy of pulmonary ventilation, and response to care wer e monitored throughout the procedure. The physica l status of the patient was re-assessed after the proce dure. PATIENT NAME: MIKKI ZULUAGA ACCOUNT #: [id number] After obtaining informed consent, the endoscope was passed under direct vision. Throughout the proc edure, the patient's blood pressure, pulse, and oxygen saturations were monitored continuously. The En doscope was introduced through the mouth, and advanced to the second part of duodenum. The upper GI endoscopy was accomplished without difficulty. The patient to lerated the procedure well. Findings: Patchy mild inflammation characterized by erosi ons and erythema was found in the stomach. Biopsies were taken with a cold forceps for histology. Verification of patient identificati on for the specimen was done. Estimated blood loss was minimal. The duodenal bulb, first portion of the duodenu m and second portion of the duodenum were normal. Biopsies were taken w ith a cold forceps for histology. Verification of patient identificati on for the specimen was done. Estimated blood loss was minimal. LA Grade A (one or more mucosal breaks less arun n 5 mm, not extending between tops of 2 mucosal folds) esophagitis wi th no bleeding was found. Impression: - Gastritis. Biopsied. - Normal duodenal bulb, first portion of the du odenum and second portion of the duodenum. Biopsied. Recommendation: - Discharge patient to home. - Resume previous diet. - Continue present medications. - Await pathology results - PPI bid - BEntyl PRN Duke Baumann MD 10/10/2019 11:12:23 AM This report has been signed electronically. Number of Addenda: 0 Note Initiated On: 10/10/2019 10:57 AM Estimated Blood Loss: Estimated blood loss: none. [address] [place] [address] Provation {[id number]}.pdf ProVation FT PDF Electronically Signed by Duke Baumann MD on 0 10/10/19 at 1112 PATIENT NAME: MIKKI ZULUAGA ACCOUNT #: [id number] 2019-10-09 22:53:00-00:00 [facility] ([facility]) Infectious Dis. Progress Note REPORT#:[id number] REPORT STATUS: Signed DATE:10/09/19 TIME:2252 PATIENT: MIKKI ZULUAGA UNIT #: [id number] ROOM/BED: [place] [address] : 79 AGE: 39 SEX: F ATTEND: Angela Araiza MD ADM AUTHOR: Steven Crisostomo MD * ALL edits or amendments must be made on the el [employer]/computer document * Subjective Chief Complaint: dysuria pain abd Objective Physical Exam Head/Eyes: atraumatic, clear cornea, EOMI, pro l conjunctiva/sclera, normal eyelids/periorb, normocephalic, PERRL ENT: normal dentition, normal nose, normal phary nx, normal sinus Neck: full range of motion, non-tender, normal thyroid, supple/no meningismus, no bruit/NL carotids, no JVD, no masses or swell ing, no lymphadenopathy Cardiovascular: regular rate rhythm Respiratory: clear to auscultation, no distress Abdomen: non-tender, soft, n o distention, no guarding, no mass/organomegaly, no rebound Genitourinary: no flank pain Extremities: moves all, normal capillary refill, normal sensory, no edema Musculoskeletal: full range of motion, normal in spection Neuro/[facility] OF [facility]OSPITAL MEDICINE: alert, oriented X 3 Lymphatics: axilla normal, inguinal normal, neck normal, no lymphadenopathy Psychiatry: normal affect, n ormal judgment/insight, normal mood, not homicidal, not suicidal, no hallucinations Diagnosis, Assessment Plan Free Text A P: 1. Urinary tract infection/cystitis. 2. Possible pyelonephritis, although because of the noncooperation from the patient where she has been c omplaining and jumping all over the place on slight touch the belly, it is diffi cult to make clinical diagnosis with pyelonephritis at this point of time. 3. Fibromyalgia. 4. Posttraumatic stress disorder. 5. Peptic ulcer disease. 6. Anxiety. 7. Depression. 8. Recurrent renal stones. 9. Migraine. 10. x3. 11. Incisional hernia repair. 12. Appendicectomy. PLAN: 1. Follow with all the cultures. 2. Appropriate antibiotics for possible urinary tract infection. 3. We will get the ultrasound of the abdomen don e. 4. We will get the LFTs done. stable all radiology and hida scan reviewed ok to dc from my side on po antibx dw pt.thinks she is not ready for discharge !!! dc planning as per Electronically Signed by Steven Crisostomo MD on 05/26 at 1352 RPT #: [id number] END OF REPORT 2019-10-09 14:08:00-00:00 [facility] ([facility]) Hospitalist Progress Note REPORT#:[id number] REPORT STATUS: Signed DATE:10/09/19 TIME:1408 PATIENT: MIKKI ZULUAGA UNIT #: [id number] ROOM/BED: [place] [address] : 79 AGE: 39 SEX: F ATTEND: Angela Araiza MD ADM AUTHOR: Efren Montez MD * ALL edits or amendments must be made on the [employer]/computer document * Subjective Chief Complaint: Abdominal pain No vomiting today Review of Systems Respiratory: Denies: SOB. Cardiovascular: Denies: chest pain. GI: Reports: nausea, vomiting. Objective General VS/I O: Vital Signs: Date Time Temp Pulse Resp B/P B/P Pulse O2 O2 F low FiO2 Mean Ox Delivery Rate 10/08 1033 37.0 67 16 111/67 81.6 93 06/04 0800 36.3 06/04 0750 37.0 60 16 107/74 0.0 95 06/04 0617 36.9 68 127/84 98.4 94 06/04 0132 36.8 65 16 120/66 84.3 96 06/03 2124 36.6 65 16 119/83 95.2 95 06/03 1647 36.7 70 18 116/81 92.7 95 Room air 24 hour I O ending at 0700: 10/08 0700 10/07 1900 Intake Total 1000.00 Output Total Balance 1000.00 Intake, IV 1000.00 Patient Weight Weight (lb): Weight (oz): Weight (kg): 100.000 Physical Exam General appearance: alert, awake Head/Eyes: atraumatic, normal conjunctiva/sclera , normal eyelids/periorb., normocephalic, PERRL ENT: moist mucosal membranes Neck: full range of motion, non-tender, normal t hyroid, no JVD Cardiovascular: normal capillary refill, normal heart sounds, regular rate rhythm Respiratory: aerating well, clear to auscultatio n, symmetric expansion, no distress Abdomen: tenderness, normal bowel sounds, soft, no distention Extremities: moves all Musculoskeletal: CVA tenderness (cva tenderness of right) Neuro/[facility] OF [facility]OSPITAL MEDICINE: alert, oriented X 3 Diagnosis, Assessment Plan Problem List/A P: 1. Pyelonephritis Free Text DxA P Notes Free text DxA P notes: 1. Pyelonephritis Continue morphine 4 mg every 4 hours as needed Rocephin 1 g every 24 hours Antiemetics as needed Supportive management with antipyretics Cultures and urine cultures pending. Patient was noted to have high fevers -rule out COVID 19 2. Anxiety Continue home regimen of medications next 10/05 COVID neg continue Rx for acute PN CT A/P with contrast as persistent pain- eval fo r abscsess vs kidney stone 10/06 CT A/P no abscess- maco non obstructive kidney st ones still very symptomatic- consult ID, continue abx 10/08 Patient getting EGD today If EGD negative plan discharge home Still some abdominal pain- nausea vomiting resol dilcia today Electronically Signed by Efren Montez MD on 08/24 at 1410 RPT #: [id number] END OF REPORT 2019-10-09 09:30:00-00:00 [facility] ([facility]) GE Consultation Note REPORT#:[id number] REPORT STATUS: Signed DATE:10/09/19 TIME:929 PATIENT: MIKKI ZULUAGA UNIT #: [id number] ROOM/BED: [place] [address] : 79 AGE: 39 SEX: F ATTEND: Angela Araiza MD ADM AUTHOR: Page Trevino PA-C * ALL edits or amendments must be made on the [employer]/computer document * History of Present Illness Chief complaint: abdominal pain HPI: Patient is a 39 year old fem ankur with past medical history of anxiety, depression , PUD, PTSD and renal stones who presented to [facility] on October 04 with complaints of right sided ab dominal pain. She also reports associated nausea and vomiting. She also reported dysuria at the time. Patient was admitted for pyelonephritis. During cours e of hospital admission, patient continues to report right sided abdominal pain, nausea and vomiting. Abdominal CT was negative except renal stones. RUQ US revealed contracted gallbladder. However, HIDA scan was negative. She does repor ts a history of gastric ulcers which she states was diagnosed with a prior EGD. GI was consulted for further evaluation. Upon examination today, patient reports she ate her l eftover food from last night early this AM and was able to tolerate it. Upon discussion of proceeding with EGD, a recent COVID test had to be documented, patient became upset, tearful and agitated. Stating she would only do it after receiving pain meds. Patient wants to proceed with EGD today. History - Adult longitudinal Past surgical history: Reports: Appendectomy, . Family history: Reports: Cancer (mother-lung ca). 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 Ambulatory status: Independent Review of Systems Free Text ROS Notes Free Text ROS Notes: 14 body systems reviewed and negative otherwise stated in HPI Objective Physical Exam VS/I O: Last Documented: Result Date Time Temp 97.3 10/08 0800 Pulse Ox 95 10/08 0750 B/P 107/74 10/08 0750 B/P Mean 0.0 10/08 0750 Pulse 60 10/08 0750 Resp 16 10/08 0750 O2 Delivery Room air 10/07 1647 24 hour I O ending at 0700: 10/08 0700 10/07 1900 Intake Total 1000.00 Output Total Balance 1000.00 Intake, IV 1000.00 Patient Weight Weight (lb): Weight (oz): Weight (kg): 100.000 General appearance: agitated, alert, awake, orie nted HEENT: anicteric, atraumatic, normocephalic Neck: full range of motion Cardiovascular: normal S1/S2, regular rate rhyth m Respiratory: equal breath sounds, symmetric expa nsion, no distress Abdomen: tenderness, normal bowel sounds, soft, no distention Extremities: moves all, normal range of motion Musculoskeletal: full range of motion Skin: dry, intact Psychiatry: anxious Results Findings/Data: Laboratory Tests 10/09/19616: [Embedded Image Not Available] Laboratory Tests 10/08 616 Chemistry Sodium (134 - 147 mmol/L) 137 Potassium (3.4 - 5.0 mmol/L) 4.2 Chloride (100 - 108 mmol/L) 105 Carbon Dioxide (21 - 32 mmol/L) 25 Anion Gap (4.0 - 15.0 GAP calc) 7.0 BUN (7 - 18 MG/DL) 8 Creatinine (0.6 - 1.0 MG/DL) 0.7 Glomerular Filtr Rate (>60 estGFR) >=60 max es timate Glucose (70 - 110 MG/DL) 97 Calcium (8.5 - 10.1 MG/DL) 9.1 Laboratory Tests 10/08 616 Hematology WBC (3.5 - 11.0 K/mm3) 6.0 RBC (4.70 - 6.10 M/mm3) 3.99 L Hgb (10.4 - 14.9 G/DL) 10.6 Hct (31.5 - 44.1 %) 33.7 MCV (84.5 - 98.6 Fl) 84.5 MCH (27.0 - 34.2 pg) 26.6 L MCHC (31.5 - 34.0 G/DL) 31.5 RDW (11.5 - 14.5 SD) 14.5 Plt Count (150 - 450 K/mm3) 453 H MPV (7.0 - 10.5 fL) 10.70 H Neut % (Auto) (40 - 76 %) 48.5 Lymph % (Auto) (20.5 - 51.1 %) 36.3 [place] % (Auto) (1.7 - 9.3 %) 9.7 H Eos % (Auto) (0.0 - 6.0 %) 4.2 Baso % (Auto) (0.0 - 2.0 %) 0.8 Neut # (Auto) (1.8 - 7.6 K/mm3) 2.9 Lymph # (Auto) (0.6 - 3.2 K/mm3) 2.2 [place] # (Auto) (0.3 - 1.1 K/mm3) 0.6 Eos # (Auto) (0.0 - 0.4 K/mm3) 0.3 Baso # (Auto) (0.0 - 0.1 K/mm3) 0.1 Abs Immat Gran (auto) (0.00 - 0.03 x10 3/uL) 0. 03 Add Manual Diff (CRITERIA DIFF/SCN) NO Nucleated RBC % (0.0 - 1.0 /100WBC%) 0.0 Diagnosis, Assessment Plan Free Text DxA P Notes Free Text DxA P Notes: Impression 1. Intractable nausea and vomiting 2. Right sided abdominal pain 3. Pyelonephritis 4. History of PUD Plan 1. EGD has been scheduled for today with Dr. Ernst martinez; risks, benefits and alternatives have been discussed with patient wh o verbalizes agreement to proceed 2. Continue NPO 3. COVID test for preprocedure 4. Continue PPI therapy 5. Continue antiemetics, analgesia PRN Electronically Signed by Page Trevino PA-C on 08/24 at 1047 RPT #: [id number] END OF REPORT 2019-10-09 09:30:00-00:00 [facility] [facility] ([facility]) GE Consultation Note REPORT#:[id number] REPORT STATUS: Signed DATE:10/09/19 TIME:929 PATIENT: MIKKI ZULUAGA UNIT #: [id number] ROOM/BED: [place] [address] : 79 AGE: 39 SEX: F ATTEND: Angela Araiza MD ADM AUTHOR: Page Trevino PA-C * ALL edits or amendments must be made on the el [employer]/computer document * History of Present Illness Chief complaint: abdominal pain HPI: Patient is a 39 year old fem ankur with past medical history of anxiety, depression , PUD, PTSD and renal stones who presented to [facility] on October 04 with complaints of right sided ab dominal pain. She also reports associated nausea and vomiting. She also reported dysuria at the time. Patient was admitted for pyelonephritis. During cours e of hospital admission, patient continues to report right sided abdominal pain, nausea and vomiting. Abdominal CT was negative except renal stones. RUQ US revealed contracted gallbladder. However, HIDA scan was negative. She does repor ts a history of gastric ulcers which she states was diagnosed with a prior EGD. GI was consulted for further evaluation. Upon examination today, patient reports she ate her l eftover food from last night early this AM and was able to tolerate it. Upon discussion of proceeding with EGD, a recent COVID test had to be documented, patient became upset, tearful and agitated. Stating she would only do it after receiving pain meds. Patient wants to proceed with EGD today. History - Adult longitudinal Past surgical history: Reports: Appendectomy, . Family history: Reports: Cancer (mother-lung ca). 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 Ambulatory status: Independent Review of Systems Free Text ROS Notes Free Text ROS Notes: 14 body systems reviewed and negative otherwise stated in HPI Objective Physical Exam VS/I O: Last Documented: Result Date Time Temp 97.3 10/08 0800 Pulse Ox 95 10/08 0750 B/P 107/74 / 0750 B/P Mean 0.0 10/08 0750 Pulse 60 / 0750 Resp 16 10/08 0750 O2 Delivery Room air 10/07 1647 24 hour I O ending at 0700: 10/08 0700 10/07 1900 Intake Total 1000.00 Output Total Balance 1000.00 Intake, IV 1000.00 Patient Weight Weight (lb): Weight (oz): Weight (kg): 100.000 General appearance: agitated, alert, awake, orie nted HEENT: anicteric, atraumatic, normocephalic Neck: full range of motion Cardiovascular: normal S1/S2, regular rate rhyth m Respiratory: equal breath sounds, symmetric expa nsion, no distress Abdomen: tenderness, normal bowel sounds, soft, no distention Extremities: moves all, normal range of motion Musculoskeletal: full range of motion Skin: dry, intact Psychiatry: anxious Results Findings/Data: Laboratory Tests 10/09/19616: [Embedded Image Not Available] Laboratory Tests 10/08 616 Chemistry Sodium (134 - 147 mmol/L) 137 Potassium (3.4 - 5.0 mmol/L) 4.2 Chloride (100 - 108 mmol/L) 105 Carbon Dioxide (21 - 32 mmol/L) 25 Anion Gap (4.0 - 15.0 GAP calc) 7.0 BUN (7 - 18 MG/DL) 8 Creatinine (0.6 - 1.0 MG/DL) 0.7 Glomerular Filtr Rate (>60 estGFR) >=60 max est imate Glucose (70 - 110 MG/DL) 97 Calcium (8.5 - 10.1 MG/DL) 9.1 Laboratory Tests 10/08 616 Hematology WBC (3.5 - 11.0 K/mm3) 6.0 RBC (4.70 - 6.10 M/mm3) 3.99 L Hgb (10.4 - 14.9 G/DL) 10.6 Hct (31.5 - 44.1 %) 33.7 MCV (84.5 - 98.6 Fl) 84.5 MCH (27.0 - 34.2 pg) 26.6 L MCHC (31.5 - 34.0 G/DL) 31.5 RDW (11.5 - 14.5 SD) 14.5 Plt Count (150 - 450 K/mm3) 453 H MPV (7.0 - 10.5 fL) 10.70 H Neut % (Auto) (40 - 76 %) 48.5 Lymph % (Auto) (20.5 - 51.1 %) 36.3 [place] % (Auto) (1.7 - 9.3 %) 9.7 H Eos % (Auto) (0.0 - 6.0 %) 4.2 Baso % (Auto) (0.0 - 2.0 %) 0.8 Neut # (Auto) (1.8 - 7.6 K/mm3) 2.9 Lymph # (Auto) (0.6 - 3.2 K/mm3) 2.2 [place] # (Auto) (0.3 - 1.1 K/mm3) 0.6 Eos # (Auto) (0.0 - 0.4 K/mm3) 0.3 Baso # (Auto) (0.0 - 0.1 K/mm3) 0.1 Abs Immat Gran (auto) (0.00 - 0.03 x10 3/uL) 0. 03 Add Manual Diff (CRITERIA DIFF/SCN) NO Nucleated RBC % (0.0 - 1.0 /100WBC%) 0.0 Diagnosis, Assessment Plan Free Text DxA P Notes Free Text DxA P Notes: Impression 1. Intractable nausea and vomiting 2. Right sided abdominal pain 3. Pyelonephritis 4. History of PUD Plan 1. EGD has been scheduled for today with Dr. Ernst martinez; risks, benefits and alternatives have been discussed with patient wh o verbalizes agreement to proceed 2. Continue NPO 3. COVID test for preprocedure 4. Continue PPI therapy 5. Continue antiemetics, analgesia PRN Electronically Signed by Page Trevino PA-C on 08/24 at 1047 Electronically Signed by Duke Baumann MD on at 1436 RPT #: [id number] END OF REPORT 2019-10-08 16:58:00-00:00 [facility] ([facility]) Infectious Dis. Progress Note REPORT#:[id number] REPORT STATUS: Signed DATE:10/08/19 TIME:1657 PATIENT: MIKKI ZULUAGA UNIT #: [id number] ROOM/BED: [place] [address] : 79 AGE: 39 SEX: F ATTEND: Angela Araiza MD ADM AUTHOR: Steven Crisostomo MD * ALL edits or amendments must be made on the [employer] document * Subjective Chief Complaint: dysuria pain abd Patient reports: No: complaints. Nursing reports: No: complaints. Objective General VS/I O: Last Documented: Result Date Time Pulse Ox 95 10/08 2123 B/P 119/83 10/08 2123 B/P Mean 95.2 10/08 2123 Temp 36.6 10/08 2123 Pulse 65 10/08 2123 Resp 16 10/08 2123 O2 Delivery Room air 10/07 1647 Vital Signs Date Temp Pulse Resp B/P B/P Mean Pulse Ox FiO2 10/07 36.6-37.0 62-70 14-18 101-119/66-83 80.4- 95.2 95-97 Patient Weight Weight (lb): Weight (oz): Weight (kg): 100.000 Medications: Active Meds + DC'd Last 24 Hrs Pantoprazole Sodium 40 MG Q12HR IV Lorazepam 0.5 MG ONCE ONE IV (DC) Hydromorphone HCl 0.2 MG ONCE ONE IV (DC) Cefepime HCl 1 GM Q6H IV (CKD) Sterile Water 10 ML Ondansetron HCl 4 MG Q8H IV Promethazine HCl 25 MG Q6H PRN PRN IM Sodium Chloride 1,000 ML .Q10H IV Diphenhydramine HCl 25 MG BEDTIME PRN PRN PO Clonazepam 0.5 MG TID PO Nicotine 14 MG DAILY TRANSDERM Acetaminophen 650 MG Q4H PRN PRN PO Docusate Sodium 100 MG Q12H PRN PRN PO Hydrocodone Bitart/Acetaminophen 1 TAB Q4H PRN P RN PO Hydrocodone Bitart/Acetaminophen 1 TAB Q4H PRN P RN PO Morphine Sulfate 4 MG Q3H PRN PRN IV Ondansetron HCl 4 MG Q4H PRN PRN IV Physical Exam General appearance: awake Head/Eyes: atraumatic, clear cornea, EOMI, pro l conjunctiva/sclera, normal eyelids/periorb, normocephalic, PERRL ENT: normal dentition, normal nose, normal phary nx, normal sinus Neck: full range of motion, non-tender, normal thyroid, supple/no meningismus, no bruit/NL carotids, no JVD, no masses or swell ing, no lymphadenopathy Cardiovascular: regular rate rhythm Respiratory: clear to auscultation, no distress Abdomen: non-tender, soft, n o distention, no guarding, no mass/organomegaly, no rebound Genitourinary: no flank pain Extremities: moves all, normal capillary refill, normal sensory, no edema Musculoskeletal: full range of motion, normal in spection Neuro/[facility] MEDICINE: alert, oriented X 3 Lymphatics: axilla normal, inguinal normal, neck normal, no lymphadenopathy Psychiatry: normal affect, n ormal judgment/insight, normal mood, not homicidal, not suicidal, no hallucinations Results Findings/Data: Laboratory Tests 10/07 0600 Toxicology Urine Opiates Screen (<2000 NG/ML SCcutoff) POS ITIVE H Urine Methadone Screen (<300 NG/ML SCcutoff) NE GATIVE Urine Barbiturates (<200 NG/ML SCcutoff) NEGATI VE Ur Phencyclidine Scrn (<25 NG/ML SCcutoff) NEGA TIVE Ur Amphetamines Screen (<1000 NG/ML SCcutoff) N EGATIVE U Benzodiazepines Scrn (<200 NG/ML SCcutoff) NE GATIVE Urine Cocaine Screen (<300 NG/ML SCcutoff) NEG ATIVE Urine Cannabinoids (<50 NG/ML SCcutoff) POSITIV E H Radiology data: Recent Impressions: ULTRASOUND - US ABDOMEN COMPLETE 10/07 7229 Report Impression - Status: SIGNED Entered: 10/08/2019 4424 IMPRESSION: 1. Contracted gallbladder which limits evaluatio n and mild gallbladder wall thickening, likely accentuated by the gallb ladder's contracted state. No cholelithiasis, pericholecystic fluid or sonographic Barba's sign. Findings are equivocal, and if th ere is a persistent concern for acute cholecystitis, nuclear medicin e HIDA scan may be performed for evaluation of cystic duct patency. No biliary dilatation/obstruction. 2. Otherwise, unremarkable abdominal ultrasound. Impression By: Tino - Alisa Wilburn M.D. Diagnosis, Assessment Plan Free Text A P: 1. Urinary tract infection/cystitis. 2. Possible pyelonephritis, although because of the noncooperation from the patient where she has been c omplaining and jumping all over the place on slight touch the belly, it is diffi cult to make clinical diagnosis with pyelonephritis at this point of time. 3. Fibromyalgia. 4. Posttraumatic stress disorder. 5. Peptic ulcer disease. 6. Anxiety. 7. Depression. 8. Recurrent renal stones. 9. Migraine. 10. x3. 11. Incisional hernia repair. 12. Appendicectomy. PLAN: 1. Follow with all the cultures. 2. Appropriate antibiotics for possible urinary tract infection. 3. We will get the ultrasound of the abdomen don e. 4. We will get the LFTs done. stable all radiology and hida scan reviewed ok to dc from my side on po antibx dw pt.thinks she is not ready for discharge !!! dc planning as per Electronically Signed by Steven Crisostomo MD on 07/24 at 2338 RPT #: [id number] END OF REPORT 2019-10-08 02:01:00-00:00 [id number] [facility] [id number] [place] [id number] PATIENT NAME: MIKKI ZULUAGA ADMIT DATE: ACCOUNT NO: [id number] ROOM NO: L.S209 AGE: 39 REPORT TYPE: CONSULTATION SEX: F ADMITTING PHYSICIAN: Polly Araiza MD ATTENDING PHYSICIAN: Polly Araiza MD CONSULTATION DATE: 10/07/2019 CONSULTING PHYSICIAN: Steven Crisostomo MD INFECTIOUS DISEASE CONSULTATION ATTENDING PHYSICIAN: Dr. Araiza. REASON FOR CONSULT: Urinary tract infection/abdo nat pain. Thank you so much Dr. Rod for asking me to see this patient. HISTORY OF PRESENT ILLNESS: This is a 39-year-ol d white lady with a past medical history of anxiety, depression, peripher al artery disease, PTSD, recurrent renal stones and migraines, pr esented to the Emergency Department on the ER of [facility] with complaint s of increased frequency of urine retention, dirty color and foul smelling u rine, was also complaining of suprapubic pain and lumbar pain bilatera lly, was having nausea and had vomited twice. The patient does give me a histor y of recurrent urinary tract infection for which she has been treat ed. I have been asked to examine the patient and to come forward with recommenda tion regarding the management of this case from the infectious disease point of view. PAST MEDICAL HISTORY: As in HPI. PAST SURGICAL HISTORY: 1. Appendicectomy. 2. x3. 3. She had incisional hernia repair. FAMILY HISTORY: Positive for CA of the lung. SOCIAL AND PERSONAL HISTORY: Smokes a pack a day for a long period of time. Occasional alcohol. Denies IV drug abuse or recr eational drugs. ALLERGIES: PER HPI. REVIEW OF SYSTEMS: Beside the above, none. PHYSICAL EXAMINATION: GENERAL: At the time of exam ination, the patient was in the bed, complaining of abdominal pain all over, in fact the pain all ov er the body. PATIENT NAME: MIKKI ZULUAGA ACCOUNT #: [id number] VITAL SIGNS: Her temperature was normal and george ls were stable. HEENT: Atraumatic and normocephalic. Pupils are equal and reactive to light. NECK: Supple. No thyromegaly. No cervical lympha denopathy. No JVP. CHEST: Harsh vesicular breathing. No crepitation or rhonchi. CARDIOVASCULAR: S1 and S2 audible. No murmur or gallop audible. ABDOMEN: Soft, slightly obese, it was difficult for me to really make a meaningful examination of the abdomen, a nd the patient has been complaining of pain all over the abdomen, w hich on clinical examination does not coincide with her other physical findings and complaints. No v isceromegaly. Bowel sounds audible. CENTRAL NERVOUS SYSTEM: Grossly within normal li mits. LABORATORY DATA: Examination which had been done on the patient shows WBC of 9, hemoglobin of 10.4, hematocrit of 33.4, and plat elets of 271. Sodium of 135, potassium 3.8, chloride 107, bicarbonate 21, BUN of 10, and creatinine of 0.7. LFTs have not been done. The urinalysis consiste nt with urinary tract infection. COVID-[address] of the abdome n, which was done shows nonobstructing bilateral brent al stones 3-4 mm. No evidence of hydronephrosis, no evidence of pyelonephritis. ASSESSMENT: At this point of time is: 1. Urinary tract infection/cystitis. 2. Possible pyelonephritis, although because of the noncooperation from the patient where she has been c omplaining and jumping all over the place on slight touch the belly, it is diffi cult to make clinical diagnosis with pyelonephritis at this point of time. 3. Fibromyalgia. 4. Posttraumatic stress disorder. 5. Peptic ulcer disease. 6. Anxiety. 7. Depression. 8. Recurrent renal stones. 9. Migraine. 10. x3. 11. Incisional hernia repair. 12. Appendicectomy. PLAN: 1. Follow with all the cultures. 2. Appropriate antibiotics for possible urinary tract infection. 3. We will get the ultrasound of the abdomen don e. 4. We will get the LFTs done. Thank you so much Mr. Barry/Dr. Rod for asking me to see this patient. I will continue to follow the patient with you. Further recommendation to follow depending upon the clinical response of the villa ent. Dictated By: Steven Crisostomo MD WT: CON:L.KAM/CHETNA/YUNG Conf#: [id number]#: [id number] PATIENT NAME: MIKKI ZULUAGA ACCOUNT #: [id number] Authenticated by Steven Crisostomo MD On 11/19/2019 02:26:11 AM Electronically Signed by Steven Crisostomo MD on at 0226 PATIENT NAME: MIKKI ZULUAGA ACCOUNT #: [id number] 2019-10-07 17:52:00-00:00 [facility] ([facility]) Infect Dis Consult Note_ Brief REPORT#:[id number] REPORT STATUS: Signed DATE:10/07/19 TIME:1751 PATIENT: MIKKI ZULUAGA UNIT #: [id number] ROOM/BED: S209-1 : 79 AGE: 39 SEX: F ATTEND: Angela Araiza MD ADM AUTHOR: Steven Crisostomo MD * ALL edits or amendments must be made on the el [employer]/computer document * History - Adult longitudinal Past surgical history: Reports: Appendectomy, . Family history: Reports: Cancer (mother-lung ca). 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 Ambulatory status: Independent Electronically Signed by Steven Crisostomo MD on 07/24 at 0410 RPT #: [id number] END OF REPORT 2019-10-07 14:11:00-00:00 [facility] ([facility]) Hospitalist Progress Note REPORT#:[id number] REPORT STATUS: Signed DATE:10/07/19 TIME:141 PATIENT: MIKKI ZULUAGA UNIT #: [id number] ROOM/BED: [place] [address] : 79 AGE: 39 SEX: F ATTEND: Angela Araiza MD ADM AUTHOR: Efren Montez MD * ALL edits or amendments must be made on the [employer] document * Subjective Chief Complaint: maco abdominal pain R >L Review of Systems Respiratory: Denies: SOB. Cardiovascular: Denies: chest pain. GI: Denies: nausea, vomiting. All systems rev neg: except as marked Objective General VS/I O: Vital Signs: Date Time Temp Pulse Resp B/P B/P Pulse O2 O2 F low FiO2 Mean Ox Delivery Rate 10/06 1036 36.8 81 17 127/85 99.2 97 Room air 10/06 0704 37.1 81 17 105/74 84.0 98 Room air 10/06 0537 37.0 72 16 103/69 80.3 97 10/06 0033 37.0 75 18 106/73 84.0 96 10/05 2330 36.8 81 18 118/81 93.1 96 Room air 10/05 1928 36.9 77 19 112/80 90.8 91 Room air 10/05 1509 37.1 74 20 105/73 83.9 97 Room air 24 hour I O ending at 0700: 02 0700 10/05 1900 Intake Total 580 Output Total 300 Balance 280 Intake, Oral 580 Output, Urine 300 Patient Weight Weight (lb): Weight (oz): Weight (kg): 100.000 Physical Exam General appearance: alert, awake Neck: full range of motion, non-tender, normal t hyroid, no JVD Cardiovascular: normal capillary refill, normal heart sounds, regular rate rhythm Respiratory: aerating well, clear to auscultatio n, symmetric expansion, no distress Abdomen: tenderness, normal bowel sounds, soft, no distention Extremities: moves all Musculoskeletal: CVA tenderness (cva tenderness of right) Neuro/[facility]OS[facility] MEDICINE: alert, oriented X 3 Diagnosis, Assessment Plan Free Text DxA P Notes Free text DxA P notes: 1. Pyelonephritis Continue morphine 4 mg every 4 hours as needed Rocephin 1 g every 24 hours Antiemetics as needed Supportive management with antipyretics Cultures and urine cultures pending. Patient was noted to have high fevers -rule out COVID 19 2. Anxiety Continue home regimen of medications next 10/05 COVID neg continue Rx for acute PN CT A/P with contrast as persistent pain- eval fo r abscsess vs kidney stone 10/06 CT A/P no abscess- maco non obstructive kidney st ones still very symptomatic- consult ID, continue abx Electronically Signed by Efren Montez MD on 06/26 at 1414 RPT #: [id number] END OF REPORT 2019-10-06 13:15:00-00:00 [facility] ([facility]) Hospitalist Progress Note REPORT#:[id number] REPORT STATUS: Signed DATE:10/06/19 TIME:1315 PATIENT: MIKKI ZULUAGA UNIT #: [id number] ROOM/BED: [place] [address] : 79 AGE: 39 SEX: F ATTEND: Angela Araiza MD ADM AUTHOR: Efren Montez MD * ALL edits or amendments must be made on the [employer] document * Subjective Chief Complaint: right sided back and abdominal pain Review of Systems Respiratory: Denies: SOB. Cardiovascular: Denies: chest pain. GI: Denies: nausea, vomiting. All systems rev neg: except as marked Objective General VS/I O: Vital Signs: Date Time Temp Pulse Resp B/P B/P Pulse O2 O2 F low FiO2 Mean Ox Delivery Rate 10/05 1042 36.9 80 20 94/63 73.1 98 Room air 10/05 0720 36.9 88 20 120/67 84.5 94 Room air 10/05 0405 37.7 94 18 111/66 81.0 95 10/05 0207 97 17 101/66 77.6 90 10/05 0048 37.2 90 18 93/65 74.6 97 10/04 1620 37.1 86 18 106/74 84.6 98 24 hour I O ending at 0700: 10/05 0700 10/04 1900 Intake Total 800 230.00 Output Total Balance 800 230.00 Intake, IV 10.00 Intake, Oral 800 220 Patient Weight Weight (lb): Weight (oz): Weight (kg): 100.000 Physical Exam General appearance: alert, awake Neck: full range of motion, non-tender, normal t hyroid, no JVD Cardiovascular: normal capillary refill, normal heart sounds, regular rate rhythm Respiratory: aerating well, clear to auscultatio n, symmetric expansion, no distress Abdomen: non-tender, normal bowel sounds, soft Extremities: moves all Musculoskeletal: CVA tenderness (cva tenderness of right) Neuro/[facility] MEDICINE: alert, oriented X 3 Diagnosis, Assessment Plan Free Text DxA P Notes Free text DxA P notes: 1. Pyelonephritis Continue morphine 4 mg every 4 hours as needed Rocephin 1 g every 24 hours Antiemetics as needed Supportive management with antipyretics Cultures and urine cultures pending. Patient was noted to have high fevers -rule out COVID 19 2. Anxiety Continue home regimen of medications next 10/05 COVID neg continue Rx for acute PN CT A/P with contrast as persistent pain- eval fo r abscsess vs kidney stone Electronically Signed by Efren Montez MD on 05/26 at 1317 RPT #: [id number] END OF REPORT 2019-10-05 19:54:00-00:00 [facility] ([facility]) Hospitalist Progress Note REPORT#:[id number] REPORT STATUS: Signed DATE:10/05/19 TIME:1953 PATIENT: MIKKI ZULUAGA UNIT #: [id number] ROOM/BED: [place] [address] : 79 AGE: 39 SEX: F ATTEND: Angela Araiza MD ADM AUTHOR: Polly Araiza MD * ALL edits or amendments must be made on the el [employer]/computer document * Subjective Chief Complaint: right sided back and abdominal pain HPI: patient admitted with pyleonephritis Free Text Subj Notes Free Subj Notes: Today lying in bed appears to be comfortable how ever states that she is still having back pain Review of Systems All systems rev neg: except as marked Objective Physical Exam General appearance: alert, awake, oriented, no a cute distress Head/Eyes: atraumatic, normal conjunctiva/sclera , normal eyelids/periorb., normocephalic, PERRL ENT: moist mucosal membranes Neck: full range of motion, non-tender, normal t hyroid, no JVD Cardiovascular: normal capillary refill, normal heart sounds, regular rate rhythm Respiratory: aerating well, clear to auscultatio n, symmetric expansion, no distress Abdomen: non-tender, normal bowel sounds, soft Extremities: moves all Musculoskeletal: CVA tenderness (cva tenderness of right) Diagnosis, Assessment Plan Problem List/A P: 1. Pyelonephritis Free Text DxA P Notes Free text DxA P notes: 1. Pyelonephritis Continue morphine 4 mg every 4 hours as needed Rocephin 1 g every 24 hours Antiemetics as needed Supportive management with antipyretics Cultures and urine cultures pending. Patient is noted to have high fevers -rule out C OVID 19 2. Anxiety Continue home regimen of medications next Electronically Signed by Polly Araiza MD on at 1958 RPT #: [id number] END OF REPORT 2019-10-04 18:53:00-00:00 [facility] ([facility]) History Physical - Adult REPORT#:[id number] REPORT STATUS: Signed DATE:10/04/19 TIME:1852 PATIENT: MIKKI ZULUAGA UNIT #: [id number] ROOM/BED: [place] [address] : 79 AGE: 39 SEX: F ATTEND: Angela Araiza MD ADM AUTHOR: Polly Araiza MD * ALL edits or amendments must be made on the [employer]/computer document * History of Present Illness HPI Chief complaint: right sided back and abdominal pain, intractable n/v PCP: Dr. ERNESTO Xie HPI: This is a 39-year-old female with past medical history of anxiety, depression, PUD, PTSD, renal stones and migraines who presented to the emergency room with complaints of right-sided abdominal pa in and back pain. Patient states that these pain started approximately 4 d ays ago and progressively worsened over the course of the past day. Intens ity of pain is currently an 8 out of 10. She also expresses that she h as had multiple episodes of nausea and vomiting. Admits to dysuria as well as urgency a nd frequency. No significant alleviating factors with pain however is aggrava beverly with movement. She was noted to have a fever of 102.3 today chayo or to being evaluated at [facility]. She was transferred from [facility] in [place]. Patient denies any chest jazzy n, shortness of breath and has been quarantined. No contact with any COVID 19 infected individual. A ll other review systems is as what was listed above were negative History Past surgical history: Reports: Appendectomy, . Family history: Reports: Cancer (mother-lung ca). 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 Allergy/Immun: Denies: allergic reaction, anaphylaxis, hives, i tching, rhinorrhea, sneezing, other. Eyes: Denies: redness, discharge, visual loss/blurred, itching, diplopia, eye pain, photophobia, swelling, other. ENT: Denies: ear drainage, ear ringing, earache, hear ing loss, mouth pain, nasal congestion, nose bleeding, sinus problem, sore t hroat, throat pain, throat swelling, tongue pain, tongue swelling, toothach e, voice change, other. Respiratory: Denies: PERES (dyspnea on exertion), hemoptysis, n on productive cough, parox nocturnal dyspnea, pleurisy, pleuritic pain, pneumonia, productive cough (sputum ), SOB, wheezing, other. Cardiovascular: Denies: chest pain, PERES (dyspnea on exer tion), edema, orthopnea, palpitations, parox nocturnal dyspnea, other. GI: Reports: abdominal pain, nausea, vomiting. Denie s: anorexia, constipation, diarrhea, dysphagia, GERD, hematemesis, hematoch ezia, hiatal hernia, melena, rectal pain, other. : Reports: dysuria, flank pain, frequency, urgency. Denies: hematuria, nocturia, pelvic pain, , urinary retention , vaginal bleeding, vaginal discharge. Musculoskeletal: Arthritis: Denies: left upper, left lower, right upper, ri ght lower, bilateral. Heme: Denies: adenopathy, bleeding, bruising, petechia e, other. Endocrine: Denies: cold intolerance, heat intolerance, poly dipsia, polyphagia, polyuria, weight gain, weight loss, other. Neuro: Denies: bladder dysfunction, bowel dysfunction, change in LOC, confusion, dizziness, focal weakness, gait problem, headach e, lightheaded, numbness, seizure, slurred speech, spinning sensation, syn cope, unable to speak, vision change, weakness, other. Psych: Denies: agitation, anxiety, auditory hallucinati on, change in mental status, confusion, delusional, depre ssion, homicidal ideation, hostile, insomnia, stress , suicidal ideation, visual hallucination, other . All systems rev neg: except as marked Physical Exam General appearance: alert, awake, oriented, no a cute distress Head/Eyes: atraumatic, EOMI, normocephalic, norm al conjunctiva/sclera, normal eyelids/periorb ENT: dry mucosal membrane Neck: full range of motion, non-tender, no bruit/NL carotids, no lymphadenopathy , no masses or swelling Breast: symmetrical Cardiovascular: normal capillary refill, regular rate rhythm, normal heart sounds, BP/pulses equal bilat., no gallop, no he ave, no murmur Respiratory: clear to auscultation, no d istress, no tenderness, aerating well, symmetric expansion Abdomen/GI: active bowel sounds, soft, n on-tender, no guarding, no rebound, no distention (obese) Extremities: moves all, no edema-all extremities , normal tone, no calf tenderness, no clubbing, no cyanosis, no evidenc e of DVT Musculoskeletal: CVA tenderness (right cva tende rnss), normal inspection Neuro/CHIE[facility] OF [facility]OSPITAL MEDICINE: alert, oriented X 3, normal speech, n o motor deficits, no sensory deficits Cranial nerves: Normal: I, II, III, IV, V, , VII, VIII, IX, X, XI, XII. Diagnosis, Assessment Plan Problem List/A P: 1. Pyelonephritis Plan discussed with: patient Code Status/Resusc. Discussion Resuscitation discussion: Discussed with: patient Code status: full code Free Text DxA P Notes Free Text DxA P Notes: Diagnosis 1.Pyelonephritis 2 nicotine abuse 3. History of PUD 4. Anxiety and depression Plan: Start Rocephin 1 g daily morphine 2 mg IV every 3 hours as needed for sev ere pain Alex p.o. as needed for moderate pain Tylenol every 4 hours as needed for temperature greater than 100.4 Blood cultures pending UA with reflex cultures Continue Klonopin daily famotadine daily encourged and counseled on cessation nicotine patch daily full code next of kin Danya [phone] Electronically Signed by Polly Araiza MD on at 1918 RPT #: [id number] END OF REPORT 2019-10-04 12:37:00-00:00 [facility] ([facility]) EMERGENCY PROVIDER REPORT REPORT#:[id number] REPORT STATUS: Signed DATE:10/04/19 TIME:123 PATIENT: MIKKI ZULUAGA UNIT #: [id number] ROOM/BED: [place] [id number] : 79 AGE: 39 SEX: F PCP PHYS: No Primar y or Family Physician SERVICE AUTHOR: Evy Cristina MD * ALL edits or amendments must be made on the [employer]/computer document * HPI- Female General Initial Greet Date/Time 10/04/19 1233 Presentation Chief Complaint Abdominal pain )( Sudden in Onset? No Onset Occurred Days ago (x 2) Symptom Duration Since onset, Constant Progression since Onset Unchanged, Constant Context of Onset Spontaneous Caused by No trauma by history Location Flank R, Flank L Quality Painful Radiation Does not radiate. Severity: Current Pain level 10 out of 10 Associated with Reports: Fever. Free Text HPI Notes Free Text HPI Notes 39yo WF with PMH of anxiety, depression, gastritis, PUD, migraine, renal stones and PTSD transferred from [place] in [place] for pyelonephritis. Given Rocephin and Levaquin at OSH. Review of Systems ROS Statements All systems rev neg except as marked. Focused Review of Systems Constitutional Denies: Chills, Fever, Lethargy. Ears/Nose/Throat Denies: Earache bilat, Nasal congestion, Sore th roat. GI Denies: Abdominal pain, Diarrhea, Nausea, Vomiti ng. Female Reports: Flank pain. Denies: Dysuria. Musculoskeletal Denies: Back pain, Extremity pain. Endocrine Denies: Polyuria, Weight loss. Skin Denies: Diaphoresis, Rash. Neurologic Denies: Change LOC, Dizziness, Focal weakness, H eadache, Numbness, Slurred speech. Past Medical History - Adult Stated Complaint ABDOMEN PAIN Allergies Coded Allergies: No Known Allergies (10/04/19) Home Medications Reported Medications clonazePAM (KlonoPIN) 0.5 MG PO TID traZODone (DESYREL) 150 MG PO BEDTIME Smoking status for patients 13 years old or olde r: Unknown,if ever smoked Physical Exam Vital Signs Vital Signs First Documented: Result Date Time Pulse Ox 96 10/03 1232 B/P 115/59 05 1232 B/P Mean 77 10/03 1232 O2 Delivery Room air 10/03 1232 Temp 98.0 10/03 1232 Pulse 81 10/03 1232 Resp 18 10/03 1232 Last Documented: Result Date Time Pulse Ox 96 10/03 1232 B/P 115/59 10/03 1232 B/P Mean 77 10/03 1232 O2 Delivery Room air 10/03 1232 Temp 98.0 10/03 1232 Pulse 81 10/03 1232 Resp 18 10/03 1232 Review of Vital Signs Reviewed, Vital signs norm al Focused PE General/Const General/Const Awake, Alert, Well appearing Resp/Chest Respiratory/Chest Breath sounds NL, Breath soun ds = bilat, No respiratory distress, No rales, No rhonchi, No wheezing Cardiovascular Cardiovascular Heart rate NL, Regular rhythm, H eart sounds NL, Peripheral circulation NL Abdomen/GI Abdomen/GI Soft, Non-tender, No guarding, No re bound MS Back Back Inspection NL, Non-tender, No CVA tenderne ss Skin Skin Color NL, No rash, Warm, Dry, Turgor NL Genitourinary Female Genitourinary External genitalia NL, No bleeding, No discharge, No cervical motion tend, Os closed, No adnexal mass , No adnexal tenderness, No uterine enlargement, No uterine mass, No lesions or rash Re-Evaluation MDM ED Course Medication(s) Ordered Medication(s) Ordered: Central Nervous System Agents Sig/Rose Mary Start time Last Medication Dose Route Stop Time Status Admin Acetaminophen 650 MG Q4H PRN PRN 10/03 1330 AC 10/04 PO 11/02 1329 0653 Hydrocodone Bitart/ 1 TAB Q4H PRN PRN 10/03 133 0 AC Acetaminophen PO 10/13 1329 Hydrocodone Bitart/ 1 TAB Q4H PRN PRN 10/03 133 0 AC 10/05 Acetaminophen PO 10/13 1329 0520 Morphine Sulfate 4 MG Q3H PRN PRN 10/03 1330 AC 10/08 IV 10/13 1329 0653 Gastrointestinal Drugs Sig/Rose Mary Start time Last Medication Dose Route Stop Time Status Admin Docusate Sodium 100 MG Q12H PRN PRN 10/03 1330 AC PO 11/02 1329 Ondansetron HCl 4 MG Q4H PRN PRN 10/03 1330 AC 10/06 IV 11/02 1329 0302 Patient Discharge Departure Vital Signs/Condition Vital Signs First Documented: Result Date Time Pulse Ox 96 10/03 1232 B/P 115/59 10/03 1232 B/P Mean 77 10/03 1232 O2 Delivery Room air 10/03 1232 Temp 98.0 10/03 1232 Pulse 81 10/03 1232 Resp 18 10/03 1232 Last Documented: Result Date Time Pulse Ox 96 10/03 1232 B/P 115/59 05 1232 B/P Mean 77 10/03 1232 O2 Delivery Room air 10/03 1232 Temp 98.0 10/03 1232 Pulse 81 10/03 1232 Resp 18 10/03 1232 All vital signs available at the time of this en try have been reviewed. Clinical Impression Clinical Impression Primary Impression: Pyelonephritis Disposition Decision Admit Admit Physician Name Polly Araiza MD Admit Physician Hospitalist Request Time 1237 Request Date 10/04/19 )( Admission Accepts Yes )( Accepted Time 1237 )( Accepted Date 10/04/19 Call Information will see patient Discharge/Care Plan Counseled Regarding Diagnosis, Need for admissio n Admit Note I have spoken with the patie nt and/or caregivers. I have explained the patient's condition, diagnoses and abdirahman atment plan based on the information available to me at this time. I have answered the patient's and/ or caregiver's questions and addressed any concerns. The patient and/or careg nicolas have as good an understanding of the patient 's diagnosis, condition and treatment plan as can be expected at this point. The patient has been stabilized within the capability of the emergency department. The patient wi ll be transported for further care and management or will be moved to an observation or inpatient service. I have communicated with the staff or medical p ashwiner taking over this patient's care. at 0814 RPT #: [id number] END OF REPORT
[2023-01-23 06:08] LABS: Absolute Lymphocytes (CBC) 3.3 K/uL (0.7-4.9); Lymphocytes % 31.6 % (15.3-44.8); MCV 75.7 fL (80-100); MPV 8.1 fL (7.6-11.3); Platelets 405 thou/uL (152-406); RBC Red Blood Cell Count 4.36 M/uL (3.86-4.86)
[2023-01-23] MEDS ORDERED: NA CHLORIDE 0.9% 1,000 ML ONE (06:09)
[2023-01-23] MEDS ORDERED: KETOROLAC 30 MG/ML INJ ONE (06:09)
[2023-01-23] MEDS ORDERED: ONDANSETRON 4 MG/2 ML VIAL ONE (06:11)
[2023-01-23 06:22] LABS: SARS-CoV-2 Antigen Rapid Res Negative (Negative)
[2023-01-23 06:30] LABS: ALT/SGPT 15 U/L (13-56); Albumin 3.4 g/dL (3.4-5.0); Alkaline Phosphatase 68 U/L (45-117); BUN Blood Urea Nitrogen 14 mg/dL (7-18); Bicarbonate 30 mEq/L (21-32); Bilirubin Total 0.2 mg/dL (0.2-1.0); Glomerular Filtration Rate 114 ml/min (=/>90); Glucose Level 98 mg/dL (74-106); Lipase 32 U/L (13-75); Potassium 3.9 mEq/L (3.5-5.1); Protein, Total 7.3 g/dL (6.4-8.2); Sodium Level 135 mEq/L (136-145)
[2023-01-23 06:32] LABS: AST/SGOT < 4 U/L (15-37); C-Reactive Protein < 2.90 mg/L (<3.00)
[2023-01-23 06:42] LABS: Specific Gravity > 1.030 (1.005-1.030); Urine Bacteria >50 /HPF (<20); Urine Bilirubin NEGATIVE (Negative); Urine Blood Negative (Negative); Urine Clarity Extremely Turbid (Clear); Urine Color Yellow (Yellow); Urine Glucose NEGATIVE (Negative); Urine Mucus 2+ /HPF (None Seen); Urine Protein 1+ (Negative); Urine RBC <5 /HPF (None Seen); Urine Urobilinogen Normal (Normal)
--- NOTE | 2023-01-23 08:11 | EDPHYS ---
Physician Documentation [facility] Name: Ericka Canales Age: 42 yrs Sex: Female : 1980 Arrival Date: 01/23/2023 Time: 04:32 Bed 11 Private MD: ED Physician Kiran Wilde HPI: 01/23 05:19 This 42 yrs old Female presents to ER via Ambulatory with complaints of Flu sp4 Symptoms. 05:28 42-year-old female presents with several hours of abdominal pain, nausea, fever, sp4 chills, body aches. Historical: - Allergies: 04:47 No Known Allergies; as6 - PMHx: 04:47 Kidney stones; as6 - PSHx: 04:47 Appendectomy; section; as6 - Immunization history:: Client reports having NOT received the Covid vaccine. - Social history:: Smoking status: Patient reports the use of cigarette tobacco products, smokes one pack cigarettes per day. - Family history:: not pertinent. ROS: 05:28 Constitutional: Negative for weight loss, positive fever, chills, body aches, nausea, sp4 right sided abdominal pain 05:28 All other systems are negative, Exam: 05:28 Constitutional: This is a well developed, well nourished patient who is awake, alert, sp4 and in no acute distress. Head/Face: Normocephalic, atraumatic. Eyes: Pupils equal round and reactive to light, extra-ocular motions intact. Lids and lashes normal. Conjunctiva and sclera are not injected. Cornea within normal limits. Periorbital areas with no swelling, redness, or edema. ENT: Nares patent. No nasal discharge, no septal abnormalities noted. Tympanic membranes are normal and external auditory canals are clear. Oropharynx with no redness, swelling, or masses, exudates, or evidence of obstruction, uvula midline. Mucous membranes moist. Neck: Trachea midline, no thyromegaly or masses palpated, and no cervical lymphadenopathy. Supple, full range of motion without nuchal rigidity, or vertebral point tenderness. Chest/axilla: Normal chest wall appearance and motion. Nontender with no deformity. No lesions are appreciated. Cardiovascular: Regular rate and rhythm with a normal S1 and S2. No gallops, murmurs, or rubs. Normal PMI, no JVD. No pulse deficits. Respiratory: Lungs have equal breath sounds bilaterally, clear to auscultation and percussion. No rales, rhonchi or wheezes noted. No increased work of breathing, no retractions or nasal flaring. Abdomen/GI: Soft, with normal bowel sounds. No distension or tympany. No guarding or rebound. Positive right-sided abdominal tenderness Back: No spinal tenderness. No costovertebral tenderness. Skin: Warm, dry with normal turgor. Normal color with no rashes, no lesions, and no evidence of cellulitis. MS/ Extremity: Pulses equal, no cyanosis. Neurovascular intact. Full, normal range of motion. Neuro: Awake and alert, GCS 15, oriented to person, place, time, and situation. Cranial nerves II-XII grossly intact. Motor strength 5/5 in all extremities. Sensory grossly intact. Psych: Awake, alert, with orientation to person, place and time. Behavior, mood, and affect are within normal limits Vital Signs: 04:46 BP 102 / 73; Pulse 88; Resp 18 S; Temp 97.5(TE); Pulse Ox 98% on R/A; Weight 58.97 kg as6 (R); Height 5 ft. 6 in. (R); Pain 5/10; 06:06 BP 93 / 55; Pulse 71; Resp 16 S; Pulse Ox 96% on R/A; as6 08:45 BP 115 / 65; Pulse 71; Resp 15; Pulse Ox 100% ; jl7 04:46 Body Mass Index 20.98 (58.97 kg, 167.64 cm) as6 04:46 Pain Scale: Adult as6 MDM: 05:20 Patient medically screened. sp4 08:09 Differential Diagnosis altered mental status, sepsis, flu. Data reviewed: vital signs, sp4 nurses notes, old medical records, lab test result(s), radiologic studies, CT scan. Consideration of Admission/Observation Escalation of care including admission/observation considered. ED course: Labs revealed mild UTI, CT revealed significant constipation. We will plan to prescribe Pyridium, cephalexin for UTI. Will advise MiraLAX for constipation. Otherwise patient stable for discharge home. . 01/23 05:20 Order name: SARS RAPID; Complete Time: 07:41 sp4 01/23 05:20 Order name: Influenza Screen (a \T\ B); Complete Time: 07:41 sp4 01/23 05:28 Order name: CBC with Diff; Complete Time: 07:41 sp4 01/23 05:28 Order name: CMP; Complete Time: 07:41 sp4 01/23 05:28 Order name: Lipase; Complete Time: 07:41 sp4 01/23 05:28 Order name: Urinalysis w/ reflexes; Complete Time: 07:41 sp4 01/23 05:28 Order name: CRP; Complete Time: 07:41 sp4 01/23 05:38 Order name: Test, Serum; Complete Time: 07:41 rv1 01/23 06:46 Order name: Urine Culture EDMS 01/23 05:28 Order name: CT Abd/Pelvis - Without Contrast; Complete Time: 08:17 sp4 01/23 05:28 Order name: IV Saline Lock; Complete Time: 05:55 sp4 01/23 05:28 Order name: Labs collected and sent; Complete Time: 05:55 sp4 Administered Medications: 06:05 Drug: NS 0.9% IV 1000 ml IV at 1 bolus Per protocol; 1000 mL bolus Route: IV; Rate: 1 as6 bolus; Site: left antecubital; 08:41 Follow up: Response: No adverse reaction; IV Status: Completed infusion; IV Intake: jl7 1000ml 06:05 Drug: TORadol - Ketorolac IVP 30 mg IVP once Route: IVP; Site: left antecubital; as6 08:41 Follow up: Response: No adverse reaction jl7 06:05 Drug: Ondansetron IVP 4 mg IVP once; over 2 minutes Route: IVP; Site: right antecubital;as6 08:41 Follow up: Response: No adverse reaction 7 08:25 Drug: Cephalexin PO 500 mg PO once Route: PO; jl7 08:41 Follow up: Response: Medication administered at discharge. 08:25 Drug: Acetaminophen-Codeine PO (300 mg-30 mg) 2 tabs PO once; RASS on ADMIN: Combtv4, jl7 Very Agttd3, Agttd2, Rstlss1, AlertClm0, Drwsy-1, Lt Sdtn-2, Mod Sdtn-3, Dp Sdtn-4, UnArsble-5 Route: PO; 08:41 Follow up: Response: Medication administered at discharge. jl7 08:25 Drug: Promethazine PO 25 mg PO once Route: PO; jl7 08:41 Follow up: Response: Medication administered at discharge. jl7 Disposition Summary: 01/23/23 08:11 Discharge Ordered Problem: new sp4 Symptoms: have improved sp4 Condition: Stable sp4 Diagnosis - Constipation, unspecified sp4 - UTI/ Urinary tract infection, site not specified sp4 - Body aches, acute back pain, mild to moderate UTI sp4 Followup: sp4 - With: Private Physician - When: 7 - 10 days - Reason: Recheck today's complaints Discharge Instructions: - Discharge Summary Sheet sp4 - Urinary Tract Infection, Adult, [id number] sp4 Forms: - Patient Portal Instructions sp4 Prescriptions: - Cephalexin 500 mg Oral Capsule - take 1 capsule ORAL route every 12 hours for 10 days; 20 capsule; Refills: 0, sp4 Product Selection Permitted - Pyridium 200 mg Oral Tablet - take 1 tablet ORAL route every 8 hours for 3 days; 9 tablet; Refills: 0, sp4 Product Selection Permitted Signatures: Dispatcher [employer] Naun Muhammad RN RN jl7 Sebastián Oakes RN RN as6 Kiran Wilde MD MD sp4
--- NOTE | 2023-01-23 08:11 | ER ---
Nurse's Notes [facility] Name: Ericka Canales Age: 42 yrs Sex: Female : 1980 Arrival Date: 01/23/2023 Time: 04:32 Bed 11 Private MD: Diagnosis: Constipation, unspecified;UTI/ Urinary tract infection, site not specified;Body aches, acute back pain, mild to moderate UTI Presentation: 01/23 04:46 Chief complaint: Patient states: "My right kidney hurts and I feel sick". Coronavirus as6 screen: At this time, the client does not indicate any symptoms associated with coronavirus-19. Ebola Screen: No symptoms or risks identified at this time. Initial Sepsis Screen: Does the patient meet any 2 criteria? No. Patient's initial sepsis screen is negative. Does the patient have a suspected source of infection? No. Patient's initial sepsis screen is negative. Risk Assessment: Do you want to hurt yourself or someone else? Patient reports no desire to harm self or others. Onset of symptoms was January 23, 2023. 04:46 Method Of Arrival: Ambulatory as6 04:46 Acuity: LETTY 3 as6 Historical: - Allergies: 04:47 No Known Allergies; as6 - PMHx: 04:47 Kidney stones; as6 - PSHx: 04:47 Appendectomy; section; as6 - Immunization history:: Client reports having NOT received the Covid vaccine. - Social history:: Smoking status: Patient reports the use of cigarette tobacco products, smokes one pack cigarettes per day. - Family history:: not pertinent. Screenin:07 [facility] ED Fall Risk Assessment (Adult) Score/Fall Risk Level 0 - 2 = Low Risk. Abuse as6 screen: Denies threats or abuse. Denies injuries from another. Nutritional screening: No deficits noted. Tuberculosis screening: No symptoms or risk factors identified. Assessment: 04:50 General: Appears in no apparent distress. Behavior is calm, cooperative, Reports fever as6 for feeling ill for fatigue for. Pain: Complains of pain in right flank. Neuro: Level of Consciousness is awake, alert, obeys commands, Oriented to person, place, time, situation. Cardiovascular: Capillary refill < 3 seconds Patient's skin is warm and dry. Respiratory: Respiratory effort is even, unlabored, Respiratory pattern is regular, symmetrical. GI: No deficits noted. No signs and/or symptoms were reported involving the gastrointestinal system. : Reports pain in right flank(s). EENT: No deficits noted. No signs and/or symptoms were reported regarding the EENT system. Derm: Skin is healthy with good turgor. 07:00 Reassessment: Patient appears in no apparent distress at this time. No changes from jl7 previously documented assessment. Patient and/or family updated on plan of care and expected duration. Pain level reassessed. Patient is alert, oriented x 3, equal unlabored respirations, skin warm/dry/pink. Vital Signs: 04:46 BP 102 / 73; Pulse 88; Resp 18 S; Temp 97.5(TE); Pulse Ox 98% on R/A; Weight 58.97 kg as6 (R); Height 5 ft. 6 in. (R); Pain 5/10; 06:06 BP 93 / 55; Pulse 71; Resp 16 S; Pulse Ox 96% on R/A; as6 08:45 BP 115 / 65; Pulse 71; Resp 15; Pulse Ox 100% ; jl7 04:46 Body Mass Index 20.98 (58.97 kg, 167.64 cm) as6 04:46 Pain Scale: Adult as6 ED Course: 04:35 Patient arrived in ED. mr 04:45 Sebastián Oakes, YOLANDA is Primary Nurse. as6 04:47 Triage completed. as6 04:48 Arm band placed on. as6 05:18 Kiran Wilde MD is Attending Physician. sp4 05:55 Test, Serum Sent. as6 05:55 CRP Sent. as6 05:55 CBC with Diff Sent. as6 05:55 CMP Sent. as6 05:55 Lipase Sent. as6 05:55 Urinalysis w/ reflexes Sent. as6 05:55 Influenza Screen (a \\T\\ B) Sent. as6 05:55 SARS RAPID Sent. as6 05:55 Inserted saline lock: 20 gauge in left antecubital area, using aseptic technique. Blood as6 collected. 06:07 Bed in low position. Call light in reach. as6 06:46 CT Abd/Pelvis - Without Contrast In Process Unspecified. EDMS 07:00 Pulse ox on. NIBP on. jl7 07:00 Warm blanket given. jl7 08:25 Provided Education on: Medication side effects. jl7 08:43 No provider procedures requiring assistance completed. IV discontinued, intact, jl7 bleeding controlled, No redness/swelling at site. Pressure dressing applied. Administered Medications: 06:05 Drug: NS 0.9% IV 1000 ml IV at 1 bolus Per protocol; 1000 mL bolus Route: IV; Rate: 1 as6 bolus; Site: left antecubital; 08:41 Follow up: Response: No adverse reaction; IV Status: Completed infusion; IV Intake: jl7 1000ml 06:05 Drug: TORadol - Ketorolac IVP 30 mg IVP once Route: IVP; Site: left antecubital; as6 08:41 Follow up: Response: No adverse reaction 7 06:05 Drug: Ondansetron IVP 4 mg IVP once; over 2 minutes Route: IVP; Site: right antecubital;as6 08:41 Follow up: Response: No adverse reaction jl7 08:25 Drug: Cephalexin PO 500 mg PO once Route: PO; jl7 08:41 Follow up: Response: Medication administered at discharge. jl 08:25 Drug: Acetaminophen-Codeine PO (300 mg-30 mg) 2 tabs PO once; RASS on ADMIN: Combtv4, jl7 Very Agttd3, Agttd2, Rstlss1, AlertClm0, Drwsy-1, Lt Sdtn-2, Mod Sdtn-3, Dp Sdtn-4, UnArsble-5 Route: PO; 08:41 Follow up: Response: Medication administered at discharge. 08:25 Drug: Promethazine PO 25 mg PO once Route: PO; jl7 08:41 Follow up: Response: Medication administered at discharge. jl7 Medication: 06:07 VIS not applicable for this client. as6 Intake: 08:41 IV: 1000ml; Total: 1000ml. jl7 Outcome: 08:11 Discharge ordered by sp4 08:54 Patient left the ED. vg2 Signatures: Dispatcher [employer] EDDC Estefania Abebe, Morgan Reg mr Naun Natarajan, RN RN jl7 Sebastián Oakes RN RN as6 Kiran Wilde MD MD sp4 Atla Walter RN RN vg2
--- NOTE | 2023-01-23 08:15 | RAD REPORT ---
EXAM DESCRIPTION: CT - Abdomen Pelvis Wo Contrast - 01/23/2023 6:44 am CLINICAL HISTORY: ABD PAIN Right flank pain, chills COMPARISON: Abdomen Pelvis W Contrast dated 04/14/2019; Abdomen Pelvis W Contrast dated 01/16/2019 ; CT ABD PELVIS W CONTRAST dated 11/12/2014; CTSTONE PROTOCOL dated 11/10/2014 TECHNIQUE: Thin cut axial CT imaging of the abdomen and pelvis was performed without IV contrast. Mu ltiplanar reformats were generated and reviewed. All CT scans are performed using dose optimization technique as appropriate and may include automated exposure control or mA/KV adjustment according to patient size. FINDINGS: No suspicious findings in the lung bases. The liver, spleen, and pancreas show no suspicious findings. Gallbladder is decompressed limiting julia luation. Symmetric renal contour, without suspicious parenchymal findings within limits of noncontrast techniq ue. No evidence of radiopaque calculi or hydroureteronephrosis. No dilated bowel loops or bowel wall thickening. No free air, free fluid or inflammatory stranding. N o hernia, mass or bulky lymphadenopathy. The urinary bladder is decompressed limiting evaluation. Lucio ewhat bulky uterus, with some fluid within the endometrial cavity measuring up to 13 millimeter in th ickness. No suspicious bony findings. IMPRESSION: No acute intra-abdominal process. No hydroureteronephrosis or radiopaque calculi. Somewhat bulky uterus with retained fluid within the endometrial cavity. Please correlate with menstr ual phase.
[2023-01-23] MEDS ORDERED: PROMETHAZINE 25 MG TABLET ONE (08:24)
[2023-01-23] MEDS ORDERED: CEPHALEXIN 250 MG CAP ONE (08:25)
[2023-01-23] MEDS ORDERED: CODEINE 30MG/APAP 300MG TAB ONE (08:25)
[2023-01-23 09:20] VITALS: TEMP 97.5
[2023-01-23 09:23] VITALS: BP 115/65; O2SAT 100
== END 2023-01-23 08:54 | disposition home or self-care (01) ==
LOC: ER 04:32
DX: N39.0 Urinary tract infection, site not specified (principal); K59.00 Constipation, unspecified; R52 Pain, unspecified; F17.210 Nicotine dependence, cigarettes, uncomplicated; Z20.822 Contact with and (suspected) exposure to COVID-19
CPT/HCPCS: 87088; 85025; 81001; 87086; 36415; 84703; 83690; 80053; 86140; 87804 ×2; 74176; 87811; Q0169; J2405; J7030

== ENCOUNTER 2023-10-06 06:47 | Emergency (ER) | payer BC ==
--- OUTSIDE RECORDS SUMMARY | 2023-10-06 06:50 | XMS REPORT | Continuity of Care Document ---
Author Name Unknown Address [address] [facility] [address] [place] [address] [facility] thconnect Address [address] [facility] [address] [place] [address] Care Team Providers Care Cpr Ambulance Driver Name Role Phone BEVERLY XIE Primary Care Physician UnavailMAGGY Singletary Attending Clinician UnavailMaggy Vidales DO Attending Clinician [phone] MELISSA ENCISO Attending Clinician UnavailMelissa Hope MD Attending Clinician [phone] Polly Araiza Attending Clinician Unavailable Physician, No Primary or Family Admitting Clinic tammy Unavailable Payers Payer Name Policy Type Policy Number Effective Date Expirati on Date Source [facility] [place] [place] - OUT OF STATE [id number] 2017 00:00:00 Problems Condition Name Condition Details Condition Category Status Onset Date Resolution Date Last Treatment Date Treating Clinician Comments Source Esophageal ulcer Esophageal ulcer Disease Active 01-12 00:00: 00 [facility] Dehydratio n Dehydratio n Disease Active 01-10 00:00: 00 [facility] Intractabl e vomiting Intractabl e vomiting Disease Active 01-09 00:00: 00 [facility] Allergies, Adverse Reactions, Alerts Allergy Name Allergy Type Status Severity Reaction(s) Onset Date Inactive Date Treating Clinician Comments Source No Known Allergie s DA Active U 10-03 00:00: 00 [facility] No Known Allergie s DA Active 10-03 00:00: 00 [facility] NO KNOWN ALLERGIE S Drug Class Active [facility] Social History Social Habit Start Date Stop Date Quantity Comments Source History of tobacco use Cigarette Smoker [facility] Exposure to SARS-CoV-2 (event) 2022-03-16 00:00:00 2022-03-26 14:46:00 Not sure [facility] Alcohol intake 2017-01-12 00:00:00 2017-01-12 00:00:00 Current drinker of alcohol (finding) [facility] Cigarettes smoked current (pack per day) - Reported 2017-01-09 00:00:00 2017-01-09 00:00:00 [facility] Tobacco Comment 2017-01-09 00:00:00 2017-01-09 00:00:00 1 Cpack every 2 days [facility] Sex Assigned At 1980 00:00:00 1980 00:00:00 [facility] Smoking Status Start Date Stop Date Source Smokes tobacco daily 2017-01-09 00:00:00 [facility] Medications Ordered Medication Name Filled Medication Name Start Date Stop Date Current Medication? Ordering Clinician Indication Dosage Frequency Signature (SIG) Comments Components Source ondansetron (ZOFRAN-ODT ) disintegrat ing tablet 4 mg 2021-05 22:00: 00 03-26 21:49 :00 No 4mg 4 mg, Oral, ONCE, 1 dose, On 03/26/22 at 1600, [facility]ine [facility] ibuprofen (IBU) tablet 600 mg 2021-05 21:00: 00 03-26 21:49 :00 No 600mg 600 mg, Oral, ONCE, 1 dose, On 03/26/22 at 1500, [facility] methylPREDN ISolone (MEDROL, OLLIE,) 4 mg tablets 11-12 00:00: 00 Yes [id number] Take by mouth SEE-INSTRU CTIONS. follow package directions [facility] traMADOL 50 mg tablet 01-12 00:00: 00 Yes 50mg Take 1 tablet by mouth every 8 (eight) hours as needed for Pain (scale 4-6) or Pain (scale 7-10). [facility] ondansetron 4 mg tablet 01-12 00:00: 00 Yes 4mg Take 1 tablet by mouth every 6 (six) hours as needed for Nausea and Vomiting (N/V). [facility] Vital Signs Vital Name Observation Time Observation Value Comments S ource Systolic blood pressure 2022-03-26 20:43:00 154 mm[Hg] [facility] Diastolic blood pressure 2022-03-26 20:43:00 88 mm[Hg] [facility] Heart rate 2022-03-26 20:43:00 98 /min [facility] Body temperature 2022-03-26 20:43:00 36.56 Sherita [facility] Respiratory rate 2022-03-26 20:43:00 18 /min [facility] Body weight 2022-03-26 20:43:00 63.504 kg [facility] BMI 2022-03-26 20:43:00 22.60 kg/m2 [facility] Oxygen saturation in Arterial blood by Pulse oximetry 2022-03-26 20:43:00 99 /min [facility] Systolic blood pressure 2019-11-13 14:09:00 116 mm[Hg] [facility] Diastolic blood pressure 2019-11-13 14:09:00 74 mm[Hg] [facility] Respiratory rate 2019-11-13 14:09:00 18 /min [facility] Body height 2019-11-13 14:09:00 167.6 cm [facility] Body weight 2019-11-13 14:09:00 90.719 kg [facility] BMI 2019-11-13 14:09:00 32.28 kg/m2 [facility] Procedures Procedure Date / Time Performed Performing Clinicia n Source NOTICE OF PRIVACY PRACTICES 2022-03-26 20:36:23 Doctor Unassigned, Petty [facility] CONSENT/REFUSAL FOR DIAGNOSIS AND TREATMENT 2022-03-26 20:33:44 Doctor Unassigned, Petty [facility] [id number] 2019-10-10 00:00:00 [facility] [id number] 2019-10-10 00:00:00 [facility] Encounters Start Date/Time End Date/Time Encounter Type Admission Type Attending [facility] Facility Care Department Encounter ID Source 2019-10-04 12:28:00 Inpatient HCAPM HU[facility] [id number] 83 [facility] 2022-03-26 14:47:00 2022-03-26 16:46:00 Emergency X MAGGY QUEEN [facility] ERT [id number] [facility] 2022-03-26 14:47:00 2022-03-26 16:46:00 Emergency Maggy Queen [facility] [id number] [facility] 2019-11-13 09:45:00 2019-11-13 09:45:00 Outpatient R MELISSA ENCISO [facility] [id number] [facility] 2019-11-13 09:04:47 2019-11-13 09:41:46 Office Visit Melissa Enciso [facility] [id number] [facility] 2019-10-04 23:54:00 2019-10-04 23:54:00 Outpatient Polly Araiza [facility] [id number] 92 [facility] Results Test Description Test Time Test Comments Results Resul t Comments Source SURG 2019-10-13 15:39:00 ----RUN DATE: 10/13/19 [facility] Singh [place] - LAB PAGE 1 RUN TIME: 1539 Specimen Inquiry RUN USER: INTERFACE ----PATIENT: ERICKA ZULUAGA LOC: [place] U #: [id number] AGE/SX: 39/F ROOM: [facility] RE10/04/19REG DR: Polly Araiza MD : 78 BED: 1 DIS: 10/10/19 STATUS: DIS IN TLOC: ---- SPEC #: [id number] RECD: 10/10/19 STATUS: CHRISSY REQ #: [id number] ANA: 10/10/[address]: Polly Araiza MD ENTERED: 10/10/19 SP TYPE: SURG OTHR DR: No Primary or Family Physician Self Referred Rob Stevens MD, Bilal MDORDERED: AB/PAS MARTÍNEZ, SURG PATH LVL 4/2, PATH STAIN GROU COPIES TO: No Primary or Family Phys[place] [address] [place] [address] Rob Stevens MD [address] [place], [place] [id number] Steven Crisostomo MD [address] [place] [address] HISTOLOGY: TISSUE ID BLK PCS MING LEV PROCEDURE DISPOSITION ____ ___ ___ ___ DUODENUM, NOS A 1 2 STOMACH, NOS B 1 1 AB/PAS MARTÍNEZ STOMACH, NOS B 1 2 PATH STAIN GROU PROCEDURES: ALBLUE (10/10/19-1316) PAS (10/10/19) SURG PATH LVL 4 (10/10/19) PATH STAIN GROU (10/10/19) TISSUES: A. DUODENUM, NOS - DUODENUM BIOPSY B. STOMACH, NOS - STOMACH BIOPSY CONTINUED ON NEXT PAGE ----RUN DATE: 10/13/19 [facility] PAGE 2 RUN TIME: 1539 Specimen Inquiry RUN USER: INTERFACE ----SPEC #: [id number] PATIENT: ERICKA ZULUAGA #[id number] (Continued) CLINICAL HISTORY PYELONEPHRITIS CPT CODES CPT CODE(S): 73516B8 , 01953 , 42650 , , , , FINAL DIAGNOSIS A. [...] all as B. ba/nr Grossing performed at [facility] Pathology, [address] [place] [address], [address], [place] [address]. Emergency Communications Dispatcher: Jorge Camp M.D. MICROSCOPIC DESCRIPTION A. Duodenum [...] organisms. Signed SIGNATURE ON FILE Neftaly Beckford Tatum 10/13/19 1539 ---- END OF REPORT BASIC METABOLIC [id number] 07:24:00* Test Item Value Reference Range Interpretation Comme nts SODIUM (test code = NA) 137 mmol/L 134-147 N POTASSIUM (test code = K) 4.2 mmol/L 3.4-5.0 N CHLORIDE (test code = CL) 105 mmol/L 100-108 N CARBON DIOXIDE (test code = CO2) 25 mmol/L 21-32 N ANION GAP (test code = GAP) 7.0 GAP calc 4.0-15.0 N GLUCOSE (test code = GLU) 97 MG/DL 70-110 N BLOOD UREA NITROGEN (test code = BUN) 8 MG/DL 7-18 N GLOMERULAR FILTRATION RATE (test code = GFR) >=60 max estimate estGFR >60 CREATININE (test code = CREAT) 0.7 MG/DL 0.6-1.0 N CALCIUM (test code = CA) 9.1 MG/DL 8.5-10.1 N CBC W/AUTO [id number] 07:07:00* Test Item Value Reference Range Interpretation Comme nts WHITE BLOOD CELL (test code = WBC) 6.0 K/mm3 3.5-11.0 N RED BLOOD CELL (test code = RBC) 3.99 M/mm3 4.70-6.10 L HEMOGLOBIN (test code = HGB) 10.6 G/DL 10.4-14.9 N HEMATOCRIT (test code = HCT) 33.7 % 31.5-44.1 N MEAN CELL VOLUME (test code = MCV) 84.5 Fl 84.5-98.6 N MEAN CELL HGB (test code = MCH) 26.6 pg 27.0-34.2 L MEAN CELL HGB CONCETRATION (test code = MCHC) 31.5 G/DL 31.5-34.0 N RED CELL DISTRIBUTION WIDTH (test code = RDW) 14.5 SD 11.5-14.5 N PLATELET COUNT (test code = PLT) 453 K/mm3 150-450 H MEAN PLATELET VOLUME (test c ode = MPV) 10.70 fL 7.0-10.5 H NEUTROPHIL % (test code = NT%) 48.5 % 40-76 N LYMPHOCYTE % (test code = LY%) 36.3 % 20.5-51.1 N MONOCYTE % (test code = MO%) 9.7 % 1.7-9.3 H EOSINOPHIL % (test code = EO%) 4.2 % 0.0-6.0 N BASOPHIL % (test code = BA%) 0.8 % 0.0-2.0 N NUCLEATED RBC % (test code = NRBC%) 0.0 /100WBC% 0.0-1.0 N NEUTROPHIL # (test code = NT#) 2.9 K/mm3 1.8-7.6 N IMMATURE GRANULOCYTE # (test code = IG#) 0.03 x10 3/uL 0.00-0.03 N LYMPHOCYTE # (test code = LY#) 2.2 K/mm3 0.6-3.2 N MONOCYTE # (test code = MO#) 0.6 K/mm3 0.3-1.1 N EOSINOPHIL # (test code = EO#) 0.3 K/mm3 0.0-0.4 N BASOPHIL # (test code = BA#) 0.1 K/mm3 0.0-0.1 N NUCLEATED RBC # (test code = NRBC#) 0.0 K/mm3 0.0-0.1 N MANUAL DIFF REQUIRED (test c ode = MDIFF) NO DIFF/SCN CRITERIA - HEPA IMAG INCL GB W [id number] 16:22:00FAX: Polly Mccullough MD [phone] Camps: PM St: ADM FAX: Efren Tripp MD Name: ERICKA ZULUAGA [facility] : 1980 Age/S: 39/F [address] Unit #: [id number] Loc: [address] [place] [address] Phys: Efren Montez MD Acct: [id number] Dis Date: Status: ADM IN PHONE #: [phone] Exam Date: 10/07 1605 FAX #: Reason: evaluate for acute cholecystitis EXAMS: CPT: [id number] HEPA IMAG INCL GB W PHA 59814 HIDA scan. DIAGNOSIS: evaluate for acute cholecystitis Comparison: Ultrasound study of 10/08/2019 is reviewed. LOCATION: C3 Approximately 5.4 mCi of technetium 99m Choletec was administered i ntravenously. Dynamic imaging was performed for 1 hour. There is prompt homogeneous accumulation ofthe radionuclide within a normal-size liver. There is rapid excretion into bile ducts, gallbladder and bowel. The gallbladder is confidently seen at 10 minutes. Radiotracer appears in the small bowelby 20minutes. During the dynamic acquisition, the gallbladder spontaneously decompresses and empties the radiotracer. Visually, the gallbladder ejection fraction is greater than 30%. Reliable gallbladder ejection calculation could not be obtained. IMPRESSIONS: Normal HIDA scan. Visual ejection fraction greater than 30%. at 1622 Reported and signed by: Joshua Fam M.D. PAGE 1 Signed Report (CONTINUED) FAX: Polly Mccullough MD [phone] Camps: PM St: ADM FAX: Efren Tripp MD Name: REICKA ZULUAGA [facility] : 1980 Age/S: 39/F [address] [facility] Unit #: [id number] Loc: [address] [place] [address] Phys: Efren Montez MD Acct: [id number] Dis Date: Status: ADM IN PHONE #: [phone] Exam Date: 10/08/2019 1605 FAX #: Reason: evaluate for acute cholecystitis EXAMS: CPT: [id number] HEPA IMAG INCL GB W PHA 12626 (Continued) CC: Polly Araiza MD; Efren Montez MD Technologist: YOLANDA Pratt Transcribed Date/Time/By:10/08/2019 (6923) :[email or web address] Orig Print D/T: S: 10/08/2019 (6571) PAGE 2 Signed Report- US ABDOMEN [id number] 08:52:00 Name: ERICKA ZULUAGA [place] : 1980 Age/S: 39 / F [address] Unit #: [id number] Loc: [place] [address] Phys: Steven Crisostomo MD Acct: [id number] Dis Date: Status: ADM IN PHONE #: [phone] Exam Date: 10/08/2019814 FAX #: Reason: pyelo/pain upper abdomen EXAMS: CPT:[id number] US ABDOMEN COMPLETE 86728 EXAM: - US ABDOMEN COMPLETE HISTORY: pyelo/pain upper abdomen Location code:S17 TECHNIQUE: Survey ultrasound imaging of the complete abdomen was performed including color Doppler evaluation of the main portal vein with territory service representative images obtained. COMPARISON: CT abdomen and pelvis 10/06/2019 FINDINGS: Statements: None. Liver: Right hepatic lobe length: 12 cm P arenchyma/Contour: Unremarkable. Main portal vein: Patent with normal [...] cm PAGE 1 Signed Report (CONTINUED) Name: ERICKA ZULUAGA [place] : 1980 Age/S: 39 / F [address] Unit #: [id number] Loc: [place] [address] Phys: Steven Crisostomo MD Acct: [id number] Dis Date: Status: ADM IN PHONE #: [phone] Exam Date: 10/08/2019 0815 FAX #: Reason: pyelo/pain upper abdomen EXAMS: CPT: [id number] US ABDOMEN COMPLETE 91640 (Continued) Vessels: The visualized IVC in the upper abdomen is unremarkable. The visualized aortain the upper abdomen is unremarkable. Other: No ascites in the visualized abdomen. IMPRESSION: 1. Contracted gallbladder which limits evaluation and mild gallbladder wall thickening, likely accentuated by the gallbladder's contracted state. No cholelithiasis, pericholecystic fluid or sonographic Barba's sign. Findings are equivocal, and if there is a persistent concern for acute cholecystitis, nuclear medicine HIDA scan may be performed for evaluation of cystic duct patency. No biliary dilatation/obstruction. 2. Otherwise, unremarkable abdominal ultrasound. at 0852 Reported and signed by: Alisa Wilburn M.D. CC: Polly Araiza MD; Steven Crisostomo MD Technologist: April Perez, RT(R),RDMS(AB) Trnscb Date/Time: 10/08/2019 (0852) [email or web address] PAGE 2 Signed Report Name: ERICKA ZULUAGA [place] : 1980 Age/S: 39 / F [address] Unit #: [id number] Loc: [place] [address] Phys: Steven Crisostomo MD Acct: [id number] Dis Date: Status: ADM IN PHONE #: [phone] Exam Date: 10/08/2019 0815FAX #: Reason: pyelo/pain upper abdomen EXAMS: CPT: [id number] US ABDOMEN COMPLETE 33258 (Continued)Orig Print D/T: S: 10/08/2019 (0855) Probe: PAGE 3 Signed ReportDRUGS OF ABUSE SCREEN [id number] 06:29:00* Test Item Value Reference Range Interpretation Comme nts URN COCAINE (test code = COCAURN) NEGATIVE SCcutoff <300 NG/ML URN CANNABINOIDS (test code = CANNABURN) POSITIVE SCcutoff <50 NG/ML A URN AMPHETAMINE (test code = AMPHETURN) NEGATIVE SCcutoff <1000 NG/ML URN BARBITURATE (test code = BARBITURN) NEGATIVE SCcutoff <200 NG/ML URN BENZODIAZEPINE (test code = BENZOURN) NEGATIVE SCcutoff <200 NG/ML URN OPIATES (test code = OPIATURN) POSITIVE SCcutoff <2000 NG/ML A URN PHENCYCLIDINE (PCP) (test code = PHENCURN) NEGATIVE SCcutoff <25 NG/ML URN METHADONE (test code = METHAURN) NEGATIVE SCcutoff <300 NG/ML - CT ABD PELVIS [id number] 16:30:00Name: ERICKA ZULUAGA [facility] : 1980 Age/S: 39 / F [address] [facility] Unit #: [id number] Loc: [place] [address] Phys: Efren Montez MD Acct: [id number] Dis Date: Status: ADM IN PHONE #: [phone] Exam Date: 10/06/2019 1602 FAX #: Reason: R/O KIDNEY STONES EXAMS: CPT: [id number] CT ABD PELVIS W/CONT 70694 HISTORY: R/O KIDNEY STONES EXAM TYPE: CT abdomen and pelvis with IV contrast. Location: S 17 TECHNIQUE: Contrast - IV contrast was given, no oral contrast was given Portal venous phase - abdomen and pelvis No delayed phase images were obtained. Reconstructions - coronaland sagittal planes One or more of the [...] nonobstructing stone within the left interpolar region ( coronal image 56). No evidence of hydronephrosis. No wedge-shaped areas to suggest decreased renal perfusion. Mild left-sided perinephric stranding, nonspecific. No suspicious renal mass. Normal caliber ureter is noted bilaterally without evidence of ureteral stones. Evaluation of the bladder is limited, but no obvious bladder abnormality is present. Reproductive organs are unremarkable. Gastrointestinal: No bowel obstruction or perienteric inflammation. PAGE 1 Signed Report (CONTINUED) Name: ERICKA ZULUAGA : 1980 Age/S: 39 / F [address] Unit #: [id number]: [place] [address] Phys: Efren Montez MD Acct: [id number] Dis Date: Status: ADM IN PHONE #: [phone] Exam Date: 10/06/2019 1605 FAX #: Reason: R/O KIDNEY STONES EXAMS: CPT: [id number] CT ABD PELVIS W/CONT 89767 (Continued) The appendix is not visualized but there is high density postsurgical change noted near the base of the cecum, correlate clinically for prior appendectomy. Moderate stool burden seen throughout segments of colon and rectum. Vascular: No evidence of aneurysm or dissection. Lymphatics: No enlarged lymph nodes by CT size criteria. Bones/Soft Tissues: No acute osseousfindings. No ventral hernias. Peritoneum/Other: No extraluminal air. No extraluminal fluid. IMPRESSION: 1. Bilateral nonobstructing 3-4 mm renal calculi. No evidence of hydronephrosis. No ureteral stone seen. at 1630 Reported and signed by: Alisa Wilburn M.D. CC: Polly Araiza MD; Efren Montez MD Technologist:RT Gary(R)(CT)(MRI) CTDI: DLP: Trnscb Date/Time: 10/06/2019 (1630) [email or web address] Orig Print D/T: S: 10/06/2019 (4070) PAGE 2 Signed ReportUR HCG [id number] 14:49:00* Test Item Value Reference Range Interpretation Comme nts UR HCG QUAL (test code = HCGQLU) NEGATIVE NEGATIVE Novel Coronavirus 09:02:00* Test Item Value Reference Range Interpretation Comme nts Novel Coronavirus 2018 Inhouse (test code = [id number]) Negative Negative Positive resul ts are indicative of the presence twSDKU-UkI-1 RNA, clinical correlation with patient historyand other diagnostic information is necessary to determinepatient infection status. Positive results do not rule outbacterial infection or co-infection with other viruses. Negative results do not preclude SARS-CoV-2 infection andshould not be used as the sole basis for patient managementdecisions. Negative results must be combined with otherclinical observations, patient history, and epidemiologicalinformation . Detection of SARS-CoV-2 RNA may be affected bysample collection methods, storage conditions, and/or stageof infection. Viral RNA mutations, vaccinations, antiviraltherapeutics, antibiotics, chemotherapeutic orimmunosuppressant drugs have not been evaluated for effectson detection. Results are for the identification of SARS-CoV-2 RNA usingthe [employer] M2000 System under the FDA Emergency UseAuthorization. The testing is performed by personneltrained in the procedures for the [employer] M2000 moleculardiagnostic SARS-CoV-2 assay in vitro. Testing Criteria: FeverNovel Coronavirus 09:02:00* Test Item Value Reference Range Interpretation Comme nts Novel Coronavirus 2019 Inhouse (test code = [id number]) Negative Negative Positive resul ts are indicative of the presence fvNKWI-DnA-1 RNA, clinical correlation with patient historyand other diagnostic information is necessary to determinepatient infection status. Positive results do not rule outbacterial infection or co-infection with other viruses. Negative results do not preclude SARS-CoV-2 infection andshould not be used as the sole basis for patient managementdecisions. Negative results must be combined with otherclinical observations, patient history, and epidemiologicalinformation . Detection of SARS-CoV-2 RNA may be affected bysample collection methods, storage conditions, and/or stageof infection. Viral RNA mutations, vaccinations, antiviraltherapeutics, antibiotics, chemotherapeutic orimmunosuppressant drugs have not been evaluated for effectson detection. Results are for the identification of SARS-CoV-2 RNA usingthe [employer] M2000 System under the FDA Emergency UseAuthorization. The testing is performed by personneltrained in the procedures for the [employer] M2000 moleculardiagnostic SARS-CoV-2 assay in vitro. Testing Criteria: FeverUA RFLX MICR CULT IF [id number] 23:32:00* Test Item Value Reference Range Interpretation Comme nts UA COLOR (test code = COLU) YELLOW discript YEL/STRAW UA APPEARANCE (test code = APPU) HAZY discript CLEAR A UA GLUCOSE DIPSTICK (test code = DGLUU) NEGATIVE mg/dL NEG UA BILIRUBIN DIPSTICK (test code = BILU) NEGATIVE mg/dL NEG UA KETONE DIPSTICK (test code = KETU) NEGATIVE mg/dL NEG UA SPECIFIC GRAVITY (test code = SGU) 1.010 SG 1.005-1.030 UA BLOOD DIPSTICK (test code = ERLIN) 3+ mg/DL NEG A UA PH DIPSTICK (test code = MICHAEL) 6.0 pH UNITS 5.0-7.0 UA PROTEIN DIPSTICK (test code = PROU) NEGATIVE mg/dL NEG UA UROBILINIOGEN DIPSTICK (test code = URO) 0.2 mg/dL <2.0 UA NITRITE DIPSTICK (test code = HERBERT) NEGATIVE SCREEN NEG UA LEUKOCYTE ESTERASE DIPSTICK (test code = LEUU) 1+ Leuk/mcL NEGATIVE A UA WBC (test code = WBCU) 20-30 #WBC/HPF 0-3 A UA RBC (test code = RBCU) 5-10 #RBC/HPF 0-3 A UA BACTERIA (test code = BACU) TRACE /HPF NONE-TRACE UA SQUAMOUS CELLS (test code = SQU) 1+ /HPF NONE A UA CULTURE NEEDED? (test code = UACULT) YES,WBC>10 & EPI<25 Criteria Culture CHK SOURCE OF URINE: STRAIGHT CATHETERIndication for culture: Dysuria/Frequency Flank PainUA RFLX MICR CULT IF [id number] 23:26:00* Test Item Value Reference Range Interpretation Comme nts UA COLOR (test code = COLU) YELLOW discript YEL/STRAW UA APPEARANCE (test code = APPU) HAZY discript CLEAR A UA GLUCOSE DIPSTICK (test code = DGLUU) NEGATIVE mg/dL NEG UA BILIRUBIN DIPSTICK (test code = BILU) NEGATIVE mg/dL NEG UA KETONE DIPSTICK (test cod e = KETU) NEGATIVE mg/dL NEG UA SPECIFIC GRAVITY (test code = SGU) 1.010 SG 1.005-1.030 UA BLOOD DIPSTICK (test code = ERLIN) 3+ mg/DL NEG A UA PH DIPSTICK (test code = MICHAEL) 6.0 pH UNITS 5.0-7.0 UA PROTEIN DIPSTICK (test code = PROU) NEGATIVE mg/dL NEG UA UROBILINIOGEN DIPSTICK (test code = URO) 0.2 mg/dL <2.0 UA NITRITE DIPSTICK (test code = HERBERT) NEGATIVE SCREEN NEG UA LEUKOCYTE ESTERASE DIPSTICK (test code = LEUU) 1+ Leuk/mcL NEGATIVE A UA CULTURE NEEDED? (test cod e = UACULT) Criteria Culture CHK SOURCE OF URINE: STRAIGHT CATHETERIndication for culture: Dysuria/Frequency Flank PainCBC W/AUTO [id number] 14:20:00* Test Item Value Reference Range Interpretation Comme nts WHITE BLOOD CELL (test code = WBC) 9.1 K/mm3 3.5-11.0 N RED BLOOD CELL (test code = RBC) 3.91 M/mm3 4.70-6.10 L HEMOGLOBIN (test code = HGB) 10.4 G/DL 10.4-14.9 N HEMATOCRIT (test code = HCT) 33.4 % 31.5-44.1 N MEAN CELL VOLUME (test code = MCV) 85.4 Fl 84.5-98.6 N MEAN CELL HGB (test code = MCH) 26.6 pg 27.0-34.2 L MEAN CELL HGB CONCETRATION (test code = MCHC) 31.1 G/DL 31.5-34.0 L RED CELL DISTRIBUTION WIDTH (test code = RDW) 14.7 SD 11.5-14.5 H PLATELET COUNT (test code = PLT) 271 K/mm3 150-450 N MEAN PLATELET VOLUME (test c ode = MPV) 10.60 fL 7.0-10.5 H NEUTROPHIL % (test code = NT%) 60.7 % 40-76 N LYMPHOCYTE % (test code = LY%) 23.0 % 20.5-51.1 N MONOCYTE % (test code = MO%) 14.9 % 1.7-9.3 H EOSINOPHIL % (test code = EO%) 0.5 % 0.0-6.0 N BASOPHIL % (test code = BA%) 0.5 % 0.0-2.0 N NUCLEATED RBC % (test code = NRBC%) 0.0 /100WBC% 0.0-1.0 N NEUTROPHIL # (test code = NT#) 5.5 K/mm3 1.8-7.6 N IMMATURE GRANULOCYTE # (test code = IG#) 0.04 x10 3/uL 0.00-0.03 H LYMPHOCYTE # (test code = LY#) 2.1 K/mm3 0.6-3.2 N MONOCYTE # (test code = MO#) 1.4 K/mm3 0.3-1.1 H EOSINOPHIL # (test code = EO#) 0.1 K/mm3 0.0-0.4 N BASOPHIL # (test code = BA#) 0.1 K/mm3 0.0-0.1 N NUCLEATED RBC # (test code = NRBC#) 0.0 K/mm3 0.0-0.1 N MANUAL DIFF REQUIRED (test c ode = MDIFF) NO DIFF/SCN CRITERIA BASIC METABOLIC [id number] 14:13:00* Test Item Value Reference Range Interpretation Comme nts SODIUM (test code = NA) 135 mmol/L 134-147 N POTASSIUM (test code = K) 3.8 mmol/L 3.4-5.0 N CHLORIDE (test code = CL) 107 mmol/L 100-108 N CARBON DIOXIDE (test code = CO2) 21 mmol/L 21-32 N ANION GAP (test code = GAP) 7.0 GAP calc 4.0-15.0 N GLUCOSE (test code = GLU) 91 MG/DL 70-110 N BLOOD UREA NITROGEN (test code = BUN) 10 MG/DL 7-18 N GLOMERULAR FILTRATION RATE (test code = GFR) >=60 max estimate estGFR >60 CREATININE (test code = CREAT) 0.7 MG/DL 0.6-1.0 N CALCIUM (test code = CA) 7.8 MG/DL 8.5-10.1 L BASIC METABOLIC YGAXK8031-77-28 14:06:00* Test Item Value Reference Range Interpretation Comme nts SODIUM (test code = NA) 135 mmol/L 134-147 N POTASSIUM (test code = K) 3.8 mmol/L 3.4-5.0 N CHLORIDE (test code = CL) 107 mmol/L 100-108 N CARBON DIOXIDE (test code = CO2) 21 mmol/L 21-32 N ANION GAP (test code = GAP) 7.0 GAP calc 4.0-15.0 N GLUCOSE (test code = GLU) 91 MG/DL 70-110 N BLOOD UREA NITROGEN (test co de = BUN) 10 MG/DL 7-18 N GLOMERULAR FILTRATION RATE ( test code = GFR) estGFR >60 CREATININE (test code = CREAT) MG/DL 0.6-1.0 CALCIUM (test code = CA) 7.8 MG/DL 8.5-10.1 L Notes Date/Time Note Provider Source 2019-10-10 17:09:00 [id number] 9X1w1UfjKncwa7c3tGmY4VYVp2OEX Hv4MAzuUDI/zwxItTzKlONgHQY9WvntCYC4975-45-53K31:0 9:[address] [facility] ([facility])Hospitalist Discharge SummaryREPORT#:[id number] REPORT STATUS: SignedDATE:10/10/19 TIME:1709 PATIENT: ERICKA ZULUAGA UNIT #: [id number]#: [id number] [address] [birth year] AGE: 39 SEX: F ATTEND: Polly Araiza [facility] AUTHOR: Efren Montez MD * ALL edits or amendments must be made on the electronic/computer document * PCP PCPPCP:PCP: No Primary or Family Physician Discharge to: home General InformationProblem List/A P: 1. Pyelonephritis Date of admission:Observation Start Date: Date of admission: 10/04/19 Discharge date: 10/09/19Discharge diagnosis:see hosp courseHospital course:HOSP COURSEThiayaan is a 39-year-old female with past medical history of anxiety, depression, PUD, PTSD, renal stones and migraines who presented to the emergencyroom with complaints of right-sided abdominal pain and back pain. Had dysuria as well as urgency and frequency. . She was noted to have a feverof 102.3 prior to being evaluated at [facility]. She was transferred from [facility] emergency room in [place] Free Text DxA P NotesFree text DxA P notes:1. 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 condition on discharge: fair Med Rec Med RecDischarge meds:Continue taking these medications:clonazePAM (KlonoPIN) 0.5 MG TAB 0.5 MILLIGRAM ORAL THREE TIMES A DAY. Comments: TAKE 1 TABLET BY MOUTH THREE TIMES A DAY NEEDED FOR PAIN - SIG Obtained From [employer] traZODone (DESYREL) 150 MG TAB 150 MILLIGRAM ORAL BEDTIME. Comments: TAKE 1 TABLET BY MOUTH EVERYDAY AT BEDTIME - SIG Obtained From [employer] Start taking the following new medications:PANTOPRAZOLE DR (PROTONIX) 40 MG TAB.DR 40 MILLIGRAM ORAL EVERY 12 HOURS. Qty = 60 No Refills CIPROFLOXACIN (CIPRO) 500 MG TAB 500 MILLIGRAM ORAL EVERY 12 HOURS. Qty = 6 No Refills ACETAMINOPHEN/CODEINE (TYLENOL WITH CODEINE #3 300/30 MG) 300 MG-30 MG TAB 1 TABLET ORAL EVERY 4 HOURS NEEDED. as needed for pain Qty = 24 No Refills ONDANSETRON (ZOFRAN) 4 MG TAB 4 MILLIGRAM ORAL EVERY 6 HOURS NEEDED. as needed for nausea and vomiting Qty = 30 No Refills Discharge InstructionsActivity: as toleratedAdditional instructions:fup with PCP 3-5 daysPrescriptions: on chart at 1720 RPT #: [id number] OF REPORT DSDischarge xzbpobm1612-17-11W23:09:00L.DLOJ09503847-3588MWXx ailable for patient cezuZESRJPVYMFHPLH9137-30-15Y60:21:13 [facility] 2019-10-10 16:29:00 [id number] D8qddkHhv8T5moWv25m54Sv4q+nzc +s7VB5ZtZwZdH/TZTFoP99gftbld8iQNDK3561-84-96K84:2 9:[address] [facility] ([facility]Post Anesthesia EvaluationREPORT#:[id number] REPORT STATUS: SignedDATE:10/10/19 TIME:1629 PATIENT: ERICKA ZULUAGA UNIT #: [id number]#: [id number] [address] [birth year] AGE: 39 SEX: F ATTEND: Polly Araiza [facility] AUTHOR: Arlin Cardoso BALANCING MACHINE OPERATOR * ALL edits or amendments must be made on the electronic/computer document * Post Anesthesia Evaluation Anes. changes from pre-op evalORM Surgeries: Surgery Date and Time: 10/10/2019 1130 Primary Procedure: ESOPHAGOGASTRODUODENOSCOPY Anesthetic: TIVADate: 10/10/19Level of consciousness: no change, patient awake, able to answer questions, participate in this eval.Vital signs:Vital Signs: Date Time Temp Pulse Resp B/P B/P Pulse O2 O2 Flow FiO2 Mean Ox Delivery Rate 10/09 1610 36.8 57 18 120/78 92.2 94 / 1139 36.6 58 18 119/82 94.5 93 / 1132 Nasal 2.166773 cannula 10/09 1125 56 18 102/64 96 Room air / 1120 58 22 113/78 97 Room air / 1115 36.4 61 40 121/61 96 Nasal 2.929177 cannula / 1032 36.9 55 18 130/72 97 Room air 06/05 0848 59 16 149/86 106.6 / 0712 36.9 56 18 107/70 82.6 94 Cardiovascular: no change, CV system stable, vital signs stableRespiratory/Airway: respiratory system stable, maintains without supportPain: adequately controlledHydration: adequateTemp status: normothermicPresence of N/V: noAnesthesia complications: noOther changes requiring f/u: noneConclusions: no apparent anes. issues at 1629 RPT #: [id number] OF REPORT CLClinical ewoj1542-04-92N98:29:00L.ADIQ79763916-5611WEZvwem able for patient ffwoNDJNDTDXOXABKF1692-28-64N43:30:22 [facility] 2019-10-10 10:57:00 [id number] FuN0pAi4jMwYG4FoEWUej4geuMwty ayV6qg6xulJ2Lj+qrrDrNS1UQErVnZJYDF5056-81-00C73:5 7:[id number] [place] [address] PATIENT NAME: ERICKA ZULUAGA ADMIT DATE: 10/04/19ACCOUNT NO: [id number] ROOM NO: [facility] AGE: 39 REPORT TYPE: ENDOSCOPY REPORT SEX: F ADMITTING PHYSICIAN: Polly Araiza MD ATTENDING PHYSICIAN: Polly Araiza MD Patient Name: Ericka Arce Procedure Date: 10/10/2019 10:57 AMMRN: [id number] of : 1980 Gender: FemaleAttending MD: Duke Baumann MD Procedure: Upper GI endoscopyIndications: Iron deficiency anemiaProviders: Duke Baumann MD (Doctor)Referring MD: Self ReferredRequesting Provider: Medicines: Monitored Anesthesia CareComplications: No immediate complications. Proce dure: Pre-Anesthesia Assessment: - Prior to the procedure, a History and Physical was performed, and patient medications and allergies were reviewed. The patient is competent. The risks and benefits of the procedure and the sedation options and risks were discussed with the patient. All questions were answered and informed consent was obtained. Patient identification and proposed procedure were verified by the physician in the pre-procedure area. Mental Status Examination: normal. Airway Examination: normal oropharyngeal airway and neck mobility. Respiratory Examination: clear to auscultation. CV Examination: normal. Prophylactic Antibiotics: The patient does not require prophylactic antibiotics. Prior Anticoagulants: The patient has taken no previous anticoagulant or antiplatelet agents. ASA Grade Assessment: III - A patient with severe systemic disease. After reviewing the risks and benefits, the patient was deemed in satisfactory condition to undergo the procedure. The anesthesia plan was to use monitored anesthesia care (MAC). Immediately prior to administration of medications, the patient was re-assessed for adequacy to receive sedatives. The heart rate, respiratory rate, oxygen saturations, blood pressure, adequacy of pulmonary ventilation, and response to care were monitored throughout the procedure. The physical status of the patient was re-assessed after the procedure. PATIENT NAME: ERICKA ZULUAGA After obtaining informed consent, the endoscope was passed under direct vision. Throughout the procedure, the patient's blood pressure, pulse, and oxygen saturations were monitored continuously. The Endoscope was introduced through the mouth, and advanced to the second part of duodenum. The upper GI endoscopy was accomplished without difficulty. The patient tolerated the procedure well. Findings: Patchy mild inflammation characterized by erosions and erythema was found in the stomach. Biopsies were taken with a cold forceps for histology. Verification of patient identification for the specimen was done. Estimated blood loss was minimal. The duodenal bulb, first portion of the duodenum and second portion of the duodenum were normal. Biopsies were taken with a cold forceps for histology. Verification of patient identification for the specimen was done. Estimated blood loss was minimal. LA Grade A (one or more mucosal breaks less than 5 mm, not extending between tops of 2 mucosal folds) esophagitis with no bleeding was found. Impression: - Gastritis. Biopsied. - Normal duodenal bulb, first portion of the duodenum and second portion of the duodenum. Biopsied.Recommendation: - Discharge patient to home. - Resume previous diet. - Continue present medications. - Await pathology results - PPI bid - BEntyl PRN Duke Baumann MD10/10/2019 11:12:23 AMThis report has been signed electronically.Number of Addenda: 0 Note Initiated On: 10/10/2019 10:57 AMEstimated Blood Loss: Estimated blood loss: none. [address] [place], [place] [address]Vnmphzzfc {[id number]}.pdf ProVation FT PDF at 1112 PATIENT NAME: CARLOS ARCEERICKA igranxy0356-57-88O77:12:00L.TGP12533656-6723JXVex ilable for patient dmzfORMVXRMIKVUFJY3064-61-72R04:13:02 [facility] 2019-10-09 22:53:00 XVzaybhhggj72417586k VMU8RAGgMUm59rGBYzwrDEdX7KErb fwUmiJ6bueQiGJI4ikU50ij+zm8O73b5l06298-61-29B54:5 3:[address] [facility] ([facility])Infectious Dis. Progress NoteREPORT#:[id number] REPORT STATUS: SignedDATE:10/09/19 TIME:2252 PATIENT: ERICKA ZULUAGA UNIT #: [id number]#: [id number] [facility] AGE: 39 SEX: F ATTEND: Polly Araiza [facility] AUTHOR: Steven Crisostomo MD * ALL edits or amendments must be made on the electronic/computer document * SubjectiveChief Complaint:dysuria pain abd Objective Physical ExamHead/Eyes: atraumatic, clear cornea, EOMI, normal conjunctiva/sclera, normal eyelids/periorb, normocephalic, PERRLENT: normal dentition, normal nose, normal pharynx, normal sinusNeck: full range of motion, non-tender, normal thyroid, supple/no meningismus, no bruit/NL carotids, no JVD, no masses or swelling, no lymphadenopathyCardiovascular: regular rate rhythmRespiratory: clear to auscultation, no distressAbdomen: non-tender, soft, no distention, no guarding, no mass/organomegaly, no reboundGenitourinary: no flank painExtremities: moves all, normal capillary refill, normal sensory, no edemaMusculoskeletal: full range of motion, normal inspectionNeuro/CPR AMBULANCE DRIVER: alert, oriented X 3Lymphatics: axilla normal, inguinal normal, neck normal, no lymphadenopathyPsychiatry: normal affect, normal judgment/insight, normal mood, not homicidal, not suicidal, no hallucinations Diagnosis, Assessment PlanFree Text A P:1. Urinary tract infection/cystitis.2. Possible pyelonephritis, although because of the noncooperation from thepatient where she has been complaining and jumping all over the place on slighttouch the belly, it is difficult to make clinical diagnosis with pyelonephritisat this point of time.3. Fibromyalgia.4. Posttraumatic stress disorder.5. Peptic ulcer disease.6. Anxiety.7. Depression.8. Recurrent renal stones.9. Migraine.10. x3.11. Incisional hernia repair.12. Appendicectomy. PLAN:1. Follow with all the cultures.2. Appropriate antibiotics for possible urinary tract infection.3. We will get the ultrasound of the abdomen done.4. We will get the LFTs done. stableall radiology and hida scan reviewedok to dc from my side on po antibxdw pt.thinks she is not ready for discharge !!!dc planning as per at 1352 RPT #: [id number] OF REPORT PRProgress Irqn2660-95-88T46:53:00L.WBEE10794493-1001FCXbopq able for patient kkewHXEMJOZOXDFZDT0697-79-23H66:53:16 [facility] 2019-10-09 14:08:00 QIepzpmxisz21501399D fMMqBXZYIEsMb/QHC5HVa6CiBsZy+ yPY92aPlFitPr+arKNxXMGIplY4sDml8Fp6227-88-76V95:0 8:[address] [facility] Progress NoteREPORT#:[id number] REPORT STATUS: SignedDATE:10/09/19 TIME:1408 PATIENT: ERICKA ZULUAGA UNIT #: [id number]#: [id number] [address] [birth year] AGE: 39 SEX: F ATTEND: Polly Araiza [employer] [facility] AUTHOR: Efren Montez MD * ALL edits or amendments must be made on the electronic/computer document * SubjectiveChief Complaint:Abdominal painNo vomiting today Review of SystemsRespiratory:Denies: SOB. Cardiovascular:Denies: chest pain. GI:Reports: nausea, vomiting. Objective GeneralVS/I O:Vital Signs: Date Time Temp Pulse Resp B/P B/P Pulse O2 O2 Flow FiO2 Mean Ox Delivery Rate 10/08 1033 37.0 67 16 111/67 81.6 93 06/04 0800 36.3 06/04 0750 37.0 60 16 107/74 0.0 95 06/04 0617 36.9 68 127/84 98.4 94 06/ 0132 36.8 65 16 120/66 84.3 96 06/ 2124 36.6 65 16 119/83 95.2 95 06/03 1647 36.7 70 18 116/81 92.7 95 Room air 24 hour I O ending at 0700: 0604 0700 06/03 1900 Intake Total 1000.00 Output Total Balance 1000.00 Intake, IV 1000.00 Patient Weight Weight (lb): Weight (oz): Weight (kg): 100.000 Physical ExamGeneral appearance: alert, awakeHead/Eyes: atraumatic, normal conjunctiva/sclera, normal eyelids/periorb., normocephalic, PERRLENT: moist mucosal membranesNeck: full range of motion, non-tender, normal thyroid, no JVDCardiovascular: normal capillary refill, normal heart sounds, regular rate rhythmRespiratory: aerating well, clear to auscultation, symmetric expansion, no distressAbdomen: tenderness, normal bowel sounds, soft, no distentionExtremities: moves allMusculoskeletal: CVA tenderness (cva tenderness of right)Neuro/CPR AMBULANCE DRIVER: alert, oriented X 3 Diagnosis, Assessment PlanProblem List/A P: 1. Pyelonephritis Free Text DxA P NotesFree text DxA P notes:1. PyelonephritisContinue morphine 4 mg every 4 hours as neededRocephin 1 g every 24 hoursAntiemetics as neededSupportive management with antipyreticsCultures and urine cultures pending.Patient was noted to have high fevers -rule out COVID 19 2. AnxietyContinue home regimen of medications next 6/1COVID negcontinue Rx for acute PNCT A/P with contrast as persistent pain- eval for abscsess vs kidney stone 6/2CT A/P no abscess- maco non obstructive kidney stonesstill very symptomatic- consult ID, continue abx 6/4Patient getting EGD todayIf EGD negative plan discharge homeStill some abdominal pain- nausea vomiting resolved today at 1410 [facility] #: [id number] OF REPORT PRProgress Hgik0964-28-81Y25:08:00L.ERHG61679270-4540MVZtvha able for patient medcGNVFWASYPKGRIT5292-86-32M60:10:28 [facility] 2019-10-09 09:30:00 VNltkdkzleb75204471P gFhDg04sLLMW6TPLD55H1h/GeI9dp 7+xJ0VTwQY5Hd/Ap3To13ER5Bs8PTcHCa66093-04-73M60:3 0:[address] [facility] ([facility])GE Consultation NoteREPORT#:[id number] REPORT STATUS: SignedDATE:10/09/19 TIME:929 PATIENT: ERICKA ZULUAGA UNIT #: [id number]#: [id number] [address] [birth year] AGE: 39 SEX: F ATTEND: Polly Araiza [employer] AUTHOR: Page Trevino PA-C * ALL edits or amendments must be made on the electronic/computer document * History of Present IllnessChief complaint:abdominal painHPI:Patient is a 39 year old female with past medical history of anxiety, depression, PUD, PTSD and renal stones who presented to the hospital on October 04 with complaints of right sided abdominal pain. She also reports associated nausea andvomiting. She also reported dysuria at the time. Patient was admitted for pyelonephritis. During course of hospital admission, patient continues to reportright sided abdominal pain, nausea and vomiting. Abdominal CT was negative except renal stones. RUQ US revealed contracted gallbladder. However, HIDA scan was negative. She does reports a history of gastric ulcers which she states was diagnosed with a prior EGD. GI was consulted for further evaluation. Upon examination today, patient reports she ate her leftover food from last night early this AM and was able to tolerate it. Upon discussion of proceeding with EGD, a recent COVID test had to be documented, patient became upset, tearful andagitated. Stating she would only do it after receiving pain meds. Patient wants to proceed with EGD today. History - Adult longitudinalPast surgical history:Reports: Appendectomy, . Family history:Reports: Cancer (mother-lung ca). 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 waiterAmbulatory status: Independent Review of Systems Free Text ROS NotesFree Text ROS Notes:14 body systems reviewed and negative otherwise stated in HPI Objective Physical ExamVS/I O:Last Documented: Result Date Time Temp 97.3 10/08 [...] (kg): 100.000 General appearance: agitated, alert, awake, orientedHEENT: anicteric, atraumatic, normocephalicNeck: full range of motionCardiovascular: normal S1/S2, regular rate rhythmRespiratory: equal breath sounds, symmetric expansion, no distressAbdomen: tenderness, normal bowel sounds, soft, no distentionExtremities: moves all, normal range of motionMusculoskeletal: full range of motionSkin: dry, intactPsychiatry: anxious ResultsFindings/Data:Laboratory Tests 10/09/19616:[Embedded Image Not Available]Laboratory Tests 10/08 616 Chemistry Sodium (134 - 147 mmol/L) 137 Potassium (3.4 - 5.0 mmol/L) 4.2 Chloride (100 - 108 mmol/L) 105 Carbon Dioxide (21 - 32 mmol/L) 25 Anion Gap (4.0 - 15.0 GAP calc) 7.0 BUN (7 - 18 MG/DL) 8 Creatinine (0.6 - 1.0 MG/DL) 0.7 Glomerular Filtr Rate (>60 estGFR) >=60 max estimate Glucose (70 - 110 MG/DL) 97 Calcium [...] % (Auto) (20.5 - 51.1 %) 36.3 [place] % (Auto) (1.7 - 9.3 %) 9.7 H Eos % (Auto) (0.0 - 6.0 %) 4.2 Baso % (Auto) (0.0 - 2.0 %) 0.8 Neut # (Auto) (1.8 - 7.6 K/mm3) 2.9 Lymph # (Auto) (0.6 - 3.2 K/mm3) 2.2 [place] # (Auto) (0.3 - 1.1 K/mm3) 0.6 Eos # (Auto) (0.0 - 0.4 K/mm3) 0.3 Baso # (Auto) (0.0 - 0.1 K/mm3) 0.1 Abs Immat Gran (auto) (0.00 - 0.03 x10 3/uL) 0.03 Add Manual Diff (CRITERIA DIFF/SCN) NO Nucleated RBC % (0.0 - 1.0 /100WBC%) 0.0 Diagnosis, Assessment Plan Free Text DxA P NotesFree Text DxA P Notes:Impression1. Intractable nausea and vomiting2. Right sided abdominal pain3. Pyelonephritis 4. History of PUD Plan1. EGD has been scheduled for today with Dr. Baumann; risks, benefits and alternatives have been discussed with patient who verbalizes agreement to proceed2. Continue NPO3. COVID test for preprocedure4. Continue PPI therapy5. Continue antiemetics, analgesia PRN at 1047 RPT #: [id number] OF REPORT WFMztszyimhviu2648-90-58U78:30:00L.RBUN29436730-5 020AVAvailable for patient yzkpDAAHMSBXNJPANW1544-55-05W52:47:56 [facility] 2019-10-09 09:30:00 [id number] t89uZ7t+F3NegA2TzvzlmI/kfUMTN IeU6xg2tio/vsmcroCP1lkf9l8mHz2lj4H8228-14-42X71:3 0:[address] [facility] ([facility])GE Consultation NoteREPORT#:[id number] REPORT STATUS: SignedDATE:10/09/19 TIME:929 PATIENT: ERICKA ZULUAGA UNIT #: [id number]#: [id number] [address] [birth year] AGE: 39 SEX: F ATTEND: Polly Araiza [employer] AUTHOR: Page Trevino PA-C * ALL edits or amendments must be made on the electronic/computer document * History of Present IllnessChief complaint:abdominal painHPI:Patient is a 39 year old female with past medical history of anxiety, depression, PUD, PTSD and renal stones who presented to the hospital on October 04 with complaints of right sided abdominal pain. She also reports associated nausea andvomiting. She also reported dysuria at the time. Patient was admitted for pyelonephritis. During course of hospital admission, patient continues to reportright sided abdominal pain, nausea and vomiting. Abdominal CT was negative except renal stones. RUQ US revealed contracted gallbladder. However, HIDA scan was negative. She does reports a history of gastric ulcers which she states was diagnosed with a prior EGD. GI was consulted for further evaluation. Upon examination today, patient reports she ate her leftover food from last night early this AM and was able to tolerate it. Upon discussion of proceeding with EGD, a recent COVID test had to be documented, patient became upset, tearful andagitated. Stating she would only do it after receiving pain meds. Patient wants to proceed with EGD today. History - Adult longitudinalPast surgical history:Reports: Appendectomy, . Family history:Reports: Cancer (mother-lung ca). 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 waiterAmbulatory status: Independent Review of Systems Free Text ROS NotesFree Text ROS Notes:14 body systems reviewed and negative otherwise stated in HPI Objective Physical ExamVS/I O:Last Documented: Result Date Time Temp 97.3 10/08 [...] (kg): 100.000 General appearance: agitated, alert, awake, orientedHEENT: anicteric, atraumatic, normocephalicNeck: full range of motionCardiovascular: normal S1/S2, regular rate rhythmRespiratory: equal breath sounds, symmetric expansion, no distressAbdomen: tenderness, normal bowel sounds, soft, no distentionExtremities: moves all, normal range of motionMusculoskeletal: full range of motionSkin: dry, intactPsychiatry: anxious ResultsFindings/Data:Laboratory Tests 10/09/19616:[Embedded Image Not Available]Laboratory Tests 10/08 616 Chemistry Sodium (134 - 147 mmol/L) 137 Potassium (3.4 - 5.0 mmol/L) 4.2 Chloride (100 - 108 mmol/L) 105 Carbon Dioxide (21 - 32 mmol/L) 25 Anion Gap (4.0 - 15.0 GAP calc) 7.0 BUN (7 - 18 MG/DL) 8 Creatinine (0.6 - 1.0 MG/DL) 0.7 Glomerular Filtr Rate (>60 estGFR) >=60 max estimate Glucose (70 - 110 MG/DL) 97 Calcium (8.5 - 10.1 MG/DL) 9.1 Laboratory Tests 06/04 0617 Hematology WBC (3.5 - 11.0 K/mm3) 6.0 [...] % (Auto) (20.5 - 51.1 %) 36.3 [place] % (Auto) (1.7 - 9.3 %) 9.7 H Eos % (Auto) (0.0 - 6.0 %) 4.2 Baso % (Auto) (0.0 - 2.0 %) 0.8 Neut # (Auto) (1.8 - 7.6 K/mm3) 2.9 Lymph # (Auto) (0.6 - 3.2 K/mm3) 2.2 [place] # (Auto) (0.3 - 1.1 K/mm3) 0.6 Eos # (Auto) (0.0 - 0.4 K/mm3) 0.3 Baso # (Auto) (0.0 - 0.1 K/mm3) 0.1 Abs Immat Gran (auto) (0.00 - 0.03 x10 3/uL) 0.03 Add Manual Diff (CRITERIA DIFF/SCN) NO Nucleated RBC % (0.0 - 1.0 /100WBC%) 0.0 Diagnosis, Assessment Plan Free Text DxA P NotesFree Text DxA P Notes:Impression1. Intractable nausea and vomiting2. Right sided abdominal pain3. Pyelonephritis 4. History of PUD Plan1. EGD has been scheduled for today with Dr. Baumann; risks, benefits and alternatives have been discussed with patient who verbalizes agreement to proceed2. Continue NPO3. COVID test for preprocedure4. Continue PPI therapy5. Continue antiemetics, analgesia PRN at 1047 at 1436 RPT #: [id number] OF REPORT WGZonfmexgsiod3461-30-31J43:30:00L.YKHW31105285-7 020AVAvailable for patient avpzHFFCMVUSOSKTRQ6752-70-42K25:36:39 [facility] 2019-10-08 16:58:00 KFlolpcvhtl80089864x 5z5RLP0YIpNGMIfzRvplVm8HNNv/H ge6tOFvd1m0EjOfl8p4p3e0bAhRhuEdTMp1000-53-39R53:5 8:[address] [facility] ([facility])Infectious Dis. Progress NoteREPORT#:[id number] REPORT STATUS: SignedDATE:10/08/19 TIME:1657 PATIENT: ERICKA ZULUAGA UNIT #: [id number]#: [id number] [address] [birth year] AGE: 39 SEX: F ATTEND: Polly Araiza [employer] AUTHOR: Steven Crisostomo MD * ALL edits or amendments must be made on the electronic/computer document * SubjectiveChief Complaint:dysuriapain abdPatient reports:No: complaints. Nursing reports:No: complaints. Objective GeneralVS/I O:Last Documented: Result Date Time Pulse Ox 95 10/08 2123 B/P 119/83 10/08 2123 B/P Mean 95.2 10/08 2123 Temp 36.6 10/08 2123 Pulse 65 10/08 2123 Resp 16 10/08 2123 O2 Delivery Room air 10/07 164 Vital Signs Date Temp Pulse Resp B/P B/P Mean Pulse Ox FiO2 10/07 36.6-37.0 62-70 14-18 101-119/66-83 80.4-95.2 95-97 Patient Weight Weight (lb): Weight (oz): Weight (kg): 100.000 Medications:Active Meds + DC'd Last 24 HrsPantoprazole Sodium 40 MG Q12HR IV Lorazepam 0.5 MG ONCE ONE IV (DC) Hydromorphone HCl 0.2 MG ONCE ONE IV (DC) Cefepime HCl 1 GM Q6H IV (CKD) Sterile Water 10 MLOndansetron HCl 4 MG Q8H IV Promethazine HCl 25 MG Q6H PRN PRN IM Sodium Chloride 1,000 ML .Q10H IV Diphenhydramine HCl 25 MG BEDTIME PRN PRN PO Clonazepam 0.5 MG TID PO Nicotine 14 MG DAILY TRANSDERM Acetaminophen 650 MG Q4H PRN PRN PO Docusate Sodium 100 MG Q12H PRN PRN PO Hydrocodone Bitart/Acetaminophen 1 TAB Q4H PRN PRN PO Hydrocodone Bitart/Acetaminophen 1 TAB Q4H PRN PRN PO Morphine Sulfate 4 MG Q3H PRN PRN IV Ondansetron HCl 4 MG Q4H PRN PRN IV Physical ExamGeneral appearance: awakeHead/Eyes: atraumatic, clear cornea, EOMI, normal conjunctiva/sclera, normal eyelids/periorb, normocephalic, PERRLENT: normal dentition, normal nose, normal pharynx, normal sinusNeck: full range of motion, non-tender, normal thyroid, supple/no meningismus, no bruit/NL carotids, no JVD, no masses or swelling, no lymphadenopathyCardiovascular: regular rate rhythmRespiratory: clear to auscultation, no distressAbdomen: non-tender, soft, no distention, no guarding, no mass/organomegaly, no reboundGenitourinary: no flank painExtremities: moves all, normal capillary refill, normal sensory, no edemaMusculoskeletal: full range of motion, normal inspectionNeuro/CPR AMBULANCE DRIVER: alert, oriented X 3Lymphatics: axilla normal, inguinal normal, neck normal, no lymphadenopathyPsychiatry: normal affect, normal judgment/insight, normal mood, not homicidal, not suicidal, no hallucinations ResultsFindings/Data:Laboratory Tests 10/07 0600 Toxicology Urine Opiates Screen (<2000 NG/ML SCcutoff) POSITIVE H Urine Methadone Screen (<300 NG/ML SCcutoff) NEGATIVE Urine Barbiturates (<200 NG/ML SCcutoff) NEGATIVE Ur Phencyclidine Scrn (<25 NG/ML SCcutoff) NEGATIVE Ur Amphetamines Screen (<1000 NG/ML SCcutoff) NEGATIVE U Benzodiazepines Scrn (<200 NG/ML SCcutoff) NEGATIVE Urine Cocaine Screen (<300 NG/ML SCcutoff) NEGATIVE Urine Cannabinoids (<50 NG/ML SCcutoff) POSITIVE H Radiology data:Recent Impressions:ULTRASOUND - US ABDOMEN COMPLETE 10/07 7625 Report Impression - Status: SIGNED Entered: 10/08/2019 0890 IMPRESSION: 1. Contracted gallbladder which limits evaluation and mild gallbladderwall thickening, likely accentuated by the gallbladder's contractedstate. No cholelithiasis, pericholecystic fluid or sonographicMurphy's sign. Findings are equivocal, and if there is a persistentconcern for acute cholecystitis, nuclear medicine HIDA scan may beperformed for evaluation of cystic duct patency. No biliarydilatation/obstruction.2. Otherwise, unremarkable abdominal ultrasound.Impression By: Tino Wilburn M.D. Diagnosis, Assessment PlanFree Text A P:1. Urinary tract infection/cystitis.2. Possible pyelonephritis, although because of the noncooperation from thepatient where she has been complaining and jumping all over the place on slighttouch the belly, it is difficult to make clinical diagnosis with pyelonephritisat this point of time.3. Fibromyalgia.4. Posttraumatic stress disorder.5. Peptic ulcer disease.6. Anxiety.7. Depression.8. Recurrent renal stones.9. Migraine.10. x3.11. Incisional hernia repair.12. Appendicectomy. PLAN:1. Follow with all the cultures.2. Appropriate antibiotics for possible urinary tract infection.3. We will get the ultrasound of the abdomen done.4. We will get the LFTs done. stableall radiology and hida scan reviewedok to dc from my side on po antibxdw pt.thinks she is not ready for discharge !!!dc planning as per at 2338 RPT #: [id number] OF REPORT PRProgress Zcgy9452-03-00T30:58:00L.KSMQ85148382-8934UFCoagu able for patient ypfiKHSDRUZYUEPLTB4940-09-33W00:38:36 [facility] 2019-10-08 02:01:00 [id number]+ jCllzgUvmZUfZL+gPT6QJLs7PZAPf Mr8+NVLO5DJXVItQOcF35nlPWeLeMe0L425354-80-02R78:0 1:[id number] [facility] [address] [place] [address] PATIENT NAME: ERICKA ZULUAGA ADMIT DATE: 10/04/19ACCOUNT NO: [id number] ROOM NO: [facility] AGE: 39 REPORT TYPE: CONSULTATION SEX: F ADMITTING PHYSICIAN: Polly Araiza MD ATTENDING PHYSICIAN: Polly Araiza MD CONSULTATION DATE: 10/07/2019 CONSULTING PHYSICIAN: Steven Crisostomo MD INFECTIOUS DISEASE CONSULTATION ATTENDING PHYSICIAN: Dr. Araiza. REASON FOR CONSULT: Urinary tract infection/abdominal pain. Thank you so much Dr. Rod for asking me to see this patient. HISTORY OF PRESENT ILLNESS: This is a 39-year-old white lady with a pastmedical history of anxiety, depression, peripheral artery disease, PTSD,recurrent renal stones and migraines, [facility] with complaints of increased frequency ofurine retention, dirty color and foul smelling urine, was also complaining ofsuprapubic pain and lumbar pain bilaterally, was having nausea and had vomitedtwice. The patient does give me a history of recurrent urinary tract infectionfor which she has been treated. I have been asked to examine the patient and tocome forward with recommendation regarding the management of this case from theinfectious disease point of view. PAST MEDICAL HISTORY: As in HPI. PAST SURGICAL HISTORY:1. Appendicectomy.2. x3.3. She had incisional hernia repair. FAMILY HISTORY: Positive for CA of the lung. SOCIAL AND PERSONAL HISTORY: Smokes a pack a day for a long period of time. Occasional alcohol. Denies IV drug abuse or recreational drugs. ALLERGIES: PER HPI. REVIEW OF SYSTEMS: Beside the above, none. PHYSICAL EXAMINATION:GENERAL: At the time of examination, the patient was in the bed, complaining ofabdominal pain all over, in fact the pain all over the body. PATIENT NAME: ERICKA ZULUAGA VITAL SIGNS: Her temperature was normal and vitals were stable.HEENT: Atraumatic and normocephalic. Pupils are equal and reactive to light.NECK: Supple. No thyromegaly. No cervical lymphadenopathy. No JVP.CHEST: Harsh vesicular breathing. No crepitation or rhonchi.CARDIOVASCULAR: S1 and S2 audible. No murmur or gallop audible.ABDOMEN: Soft, slightly obese, it was difficult for me to really make ameaningful examination of the abdomen, and the patient has been complaining ofpain all over the abdomen, which on clinical examination does not coincide withher other physical findings and complaints. No visceromegaly. Bowel soundsaudible.CENTRAL NERVOUS SYSTEM: Grossly within normal limits. LABORATORY DATA: Examination which had been done on the patient shows WBC of 9,hemoglobin of 10.4, hematocrit of 33.4, and platelets of 271. Sodium of 135,potassium 3.8, chloride 107, bicarbonate 21, BUN of 10, and creatinine of 0.7. LFTs have not been done. The urinalysis consistent with urinary tractinfection. COVID-[address] of the abdomen, which was done showsnonobstructing bilateral renal stones 3-4 mm. No evidence of hydronephrosis, noevidence of pyelonephritis. ASSESSMENT: At this point of time is:1. Urinary tract infection/cystitis.2. Possible pyelonephritis, although because of the noncooperation from thepatient where she has been complaining and jumping all over the place on slighttouch the belly, it is difficult to make clinical diagnosis with pyelonephritisat this point of time.3. Fibromyalgia.4. Posttraumatic stress disorder.5. Peptic ulcer disease.6. Anxiety.7. Depression.8. Recurrent renal stones.9. Migraine.10. x3.11. Incisional hernia repair.12. Appendicectomy. PLAN:1. Follow with all the cultures.2. Appropriate antibiotics for possible urinary tract infection.3. We will get the ultrasound of the abdomen done.4. We will get the LFTs done. Thank you so much Mr. Barry/Dr. Rod for asking me to see this patient. I willcontinue to follow the patient with you. Further recommendation to followdepending upon the clinical response of the patient. Dictated By: Steven Crisostomo MD WT: CON:OMAR/CHETNA/NTSDD: 10/08/2019 02:01:30DT: 10/08/2019 04:40:33Conf#: [id number]/DID#: [id number] PATIENT NAME: ERICKA ZULUAGA Authenticated by Steven Crisostomo MD On 11/19/2019 02:26:11 AM at 0226 PATIENT NAME: ERICKA ZULUAGA :40:00L.UT [id number] for patient vbfqBNOQHAHJPAPLQN7477-81-63R20:26:47 [facility] 2019-10-07 17:52:00 JCpjxkgmdpk36387212j wx2jixS9LYNkgGlI88fQ/pZ5bRW5F tgKzLttU29kUn3TU9MwK7epKgSdYJz6tkP9879-32-41K21:5 2:[address] [facility] ([facility])Infect Dis Consult Note_ BriefREPORT#:[id number] REPORT STATUS: SignedDATE:10/07/19 TIME:1751 PATIENT: ERICKA ZULUAGA UNIT #: [id number]#: [id number] ROOM/BED: L128-4IZH: 79 AGE: 39 SEX: F ATTEND: Polly Araiza [facility] AUTHOR: Steven Crisostomo MD * ALL edits or amendments must be made on the electronic/computer document * History - Adult longitudinalPast surgical history:Reports: Appendectomy, . Family history:Reports: Cancer (mother-lung ca). 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 waiterAmbulatory status: Independent at 0410 RPT #: [id number] OF REPORT CIZuwwgujdbgmz4643-59-73L72:52:00L.ALUG44397000-3 189AVAvailable for patient ontmHYJEEEZIMBUQUZ1255-27-85M77:10:51 [facility] 2019-10-07 14:11:00 SJduazubbyd95148127h 6+nAU7YHOdQXnGt/jfPWQD8RFykNY glt8e31+4lYztxlsVBnR1JBWgEEbI8LvYv1584-03-67M25:1 1:00 [facility])Hospitalist Progress NoteREPORT#:[id number] REPORT STATUS: SignedDATE:10/07/19 TIME:1411 PATIENT: ERICKA ZULUAGA UNIT #: [id number]#: [id number] [address] AGE: 39 SEX: F ATTEND: Polly Araiza [employer] [facility] AUTHOR: Efren Montez MD * ALL edits or amendments must be made on the electronic/computer document * SubjectiveChief Complaint:maco abdominal pain R >L Review of SystemsRespiratory:Denies: SOB. Cardiovascular:Denies: chest pain. GI:Denies: nausea, vomiting. All systems rev neg: except as marked Objective GeneralVS/I O:Vital Signs: Date Time Temp Pulse Resp B/P B/P Pulse O2 O2 Flow FiO2 Mean Ox Delivery Rate 10/06 1036 36.8 81 17 127/85 99.2 97 Room air 06/ 0704 37.1 81 17 105/74 84.0 98 Room air / 0537 37.0 72 16 103/69 80.3 97 / 0033 37.0 75 18 106/73 84.0 96 [...] (lb): Weight (oz): Weight (kg): 100.000 Physical ExamGeneral appearance: alert, awakeNeck: full range of motion, non-tender, normal thyroid, no JVDCardiovascular: normal capillary refill, normal heart sounds, regular rate rhythmRespiratory: aerating well, clear to auscultation, symmetric expansion, no distressAbdomen: tenderness, normal bowel sounds, soft, no distentionExtremities: moves allMusculoskeletal: CVA tenderness (cva tenderness of right)Neuro/CPR AMBULANCE DRIVER: alert, oriented X 3 Diagnosis, Assessment Plan Free Text DxA P NotesFree text DxA P notes:1. PyelonephritisContinue morphine 4 mg every 4 hours as neededRocephin 1 g every 24 hoursAntiemetics as neededSupportive management with antipyreticsCultures and urine cultures pending.Patient was noted to have high fevers -rule out COVID 19 2. AnxietyContinue home regimen of medications next 6/1COVID negcontinue Rx for acute PNCT A/P with contrast as persistent pain- eval for abscsess vs kidney stone 6/2CT A/P no abscess- maco non obstructive kidney stonesstill very symptomatic- consult ID, continue abx at 1414 [facility] #: [id number] OF REPORT PRProgress Eljf9186-86-30A34:11:00L.[id number] able for patient avzqYVOEVZJDGPMHKW7713-10-48B95:14:13 [facility] 2019-10-06 13:15:00 [id number] XmQx65W5wlc0KXG6eFd0PnMYO6hb6 a5vxiHNBVfxyFDz9YfnQC2QPlhgcgkgPbu2899-22-27Z98:1 5:[address] [facility] ([facility])Hospitalist Progress NoteREPORT#:[id number] REPORT STATUS: SignedDATE:10/06/19 TIME:1315 PATIENT: ERICKA ZULUAGA UNIT #: [id number]#: [id number] [address] AGE: 39 SEX: F ATTEND: Polly Araiza [facility] AUTHOR: Efren Montez MD * ALL edits or amendments must be made on the electronic/computer document * SubjectiveChief Complaint:right sided back and abdominal pain Review of SystemsRespiratory:Denies: SOB. Cardiovascular:Denies: chest pain. GI:Denies: nausea, vomiting. All systems rev neg: except as marked Objective GeneralVS/I O:Vital Signs: Date Time Temp Pulse Resp B/P B/P Pulse O2 O2 Flow FiO2 Mean Ox Delivery Rate 10/05 1042 [...] (lb): Weight (oz): Weight (kg): 100.000 Physical ExamGeneral appearance: alert, awakeNeck: full range of motion, non-tender, normal thyroid, no JVDCardiovascular: normal capillary refill, normal heart sounds, regular rate rhythmRespiratory: aerating well, clear to auscultation, symmetric expansion, no distressAbdomen: non-tender, normal bowel sounds, softExtremities: moves allMusculoskeletal: CVA tenderness (cva tenderness of right)Neuro/CPR AMBULANCE DRIVER: alert, oriented X 3 Diagnosis, Assessment Plan Free Text DxA P NotesFree text DxA P notes:1. PyelonephritisContinue morphine 4 mg every 4 hours as neededRocephin 1 g every 24 hoursAntiemetics as neededSupportive management with antipyreticsCultures and urine cultures pending.Patient was noted to have high fevers -rule out COVID 19 2. AnxietyContinue home regimen of medications next 1COVID negcontinue Rx for acute PNCT A/P with contrast as persistent pain- eval for abscsess vs kidney stone at 1317 RPT #: [id number] OF REPORT PRProgress Odns1537-42-94P35:15:00L.GCLW29722772-7922JAOynrr able for patient uolnJJAFRHNLNDPQOI4293-65-67H78:17:59 [facility] 2019-10-05 19:54:00 BYunglckets89363618P 2DfKC5Qh5Sz8ava6nt+r9ft2Lnmdr Zi7nTi8gvskuKCnf/lLJBzS4wYGYTUHtkr9393-02-39R27:5 4:00 [facility] Centerist Progress NoteREPORT#:[id number] REPORT STATUS: SignedDATE:10/05/19 TIME:1953 PATIENT: ERICKA ZULUAGA UNIT #: [id number]#: [id number] [address] AGE: 39 SEX: F ATTEND: Polly Araiza [facility] AUTHOR: Polly Araiza MD * ALL edits or amendments must be made on the electronic/computer document * SubjectiveChief Complaint:right sided back and abdominal painHPI: patient admitted with pyleonephritis Free Text Subj NotesFree Subj Notes:Today lying in bed appears to be comfortable however states that she is still having back pain Review of SystemsAll systems rev neg: except as marked Objective Physical ExamGeneral appearance: alert, awake, oriented, no acute distressHead/Eyes: atraumatic, normal conjunctiva/sclera, normal eyelids/periorb., normocephalic, PERRLENT: moist mucosal membranesNeck: full range of motion, non-tender, normal thyroid, no JVDCardiovascular: normal capillary refill, normal heart sounds, regular rate rhythmRespiratory: aerating well, clear to auscultation, symmetric expansion, no distressAbdomen: non-tender, normal bowel sounds, softExtremities: moves allMusculoskeletal: CVA tenderness (cva tenderness of right) Diagnosis, Assessment PlanProblem List/A P: 1. Pyelonephritis Free Text DxA P NotesFree text DxA P notes:1. PyelonephritisContinue morphine 4 mg every 4 hours as neededRocephin 1 g every 24 hoursAntiemetics as neededSupportive management with antipyreticsCultures and urine cultures pending.Patient is noted to have high fevers -rule out COVID 19 2. AnxietyContinue home regimen of medications next at [facility] RPT #: [id number] OF REPORT PRProgress Tsmd0286-09-09L35:54:00L.NXZZ87529157-5760NOYvkyb able for patient biepXLBYKUXEYCKKKC5746-17-60Q50:58:37 [facility] 2019-10-04 18:53:00 [id number] BuvduY0pgpABVSVBCATP6EaC3vCQB GLSsf0ZNj0Gc/GeWjfhLwMMfN4iAMMOOyb8834-07-17J57:5 3:[address] [facility] ([facility])History Physical - AdultREPORT#:[id number] REPORT STATUS: SignedDATE:10/04/19 TIME:1852 PATIENT: ERICKA ZULUAGA UNIT #: [id number]#: [id number] [address] AGE: 39 SEX: F ATTEND: Polly Araiza [employer] [facility] AUTHOR: Polly Araiza MD * ALL edits or amendments must be made on the electronic/computer document * History of Present Illness HPIChief complaint:right sided back and abdominal pain, intractable n/vPCP:Dr. ERNESTO XieI:This is a 39-year-old female with past medical history of anxiety, depression, PUD, PTSD, renal stones and migraines who presented to the emergencyroom with complaints of right-sided abdominal pain and back pain. Patient states that these pain started approximately 4 days ago and progressively worsened over the course of the past day. Intensity of pain is currently an 8 out of 10. She also expresses that she has had multiple episodes of nausea and vomiting. Admits to dysuria as well as urgency and frequency. No significant alleviating factors with pain however is aggravated with movement. She was noted to have a fever of 102.3 today prior to being evaluated at [facility]. She was transferred from [facility] emergency room in [place]. Patient denies any chest pain, shortness of breath and has been quarantined. Nocontact with any COVID 19 infected individual. All other review systems is as what was listed above were negative HistoryPast surgical history:Reports: Appendectomy, . Family history:Reports: Cancer (mother-lung ca). 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driver for waiterindependent with adls Medication/Allergy-Vaccine HxAllergies:Coded Allergies:No Known Allergies (10/04/19) Immunization status: up to date except: (unknown per patient)Occupation:class a regional drivers for waiterAmbulatory status: Independent Review of SystemsSkin:Denies: abrasion, bruising, contusion, diaphoresis, ecchymosis, itching, laceration, rash, swelling, other. Allergy/Immun:Denies: allergic reaction, anaphylaxis, hives, itching, rhinorrhea, sneezing, other. Eyes:Denies: redness, discharge, visual loss/blurred, itching, diplopia, eye pain, photophobia, swelling, other. ENT:Denies: ear drainage, ear ringing, earache, hearing loss, mouth pain, nasal congestion, nose bleeding, sinus problem, sore throat, throat pain, throat swelling, tongue pain, tongue swelling, toothache, voice change, other. Respiratory:Denies: PERES (dyspnea on exertion), hemoptysis, non productive cough, parox nocturnal dyspnea, pleurisy, pleuritic pain, pneumonia, productive cough (sputum), SOB, wheezing, other. Cardiovascular:Denies: chest pain, PERES (dyspnea on exertion), edema, orthopnea, palpitations, parox nocturnal dyspnea, other. GI:Reports: abdominal pain, nausea, vomiting. Denies: anorexia, constipation, diarrhea, dysphagia, GERD, hematemesis, hematochezia, hiatal hernia, melena, rectal pain, other. :Reports: dysuria, flank pain, frequency, urgency. Denies: hematuria, nocturia, pelvic pain, , urinary retention, vaginal bleeding, vaginal discharge. Musculoskeletal: Arthritis: Denies: left upper, left lower, right upper, right lower, bilateral. Heme:Denies: adenopathy, bleeding, bruising, petechiae, other. Endocrine:Denies: cold intolerance, heat intolerance, polydipsia, polyphagia, polyuria, weight gain, weight loss, other. Neuro:Denies: bladder dysfunction, bowel dysfunction, change in LOC, confusion, dizziness, focal weakness, gait problem, headache, lightheaded, numbness, seizure, slurred speech, spinning sensation, syncope, unable to speak, vision change, weakness, other. Psych:Denies: agitation, anxiety, auditory hallucination, change in mental status, confusion, delusional, depression, homicidal ideation, hostile, insomnia, stress, suicidal ideation, visual hallucination, other. All systems rev neg: except as marked Physical ExamGeneral appearance: alert, awake, oriented, no acute distressHead/Eyes: atraumatic, EOMI, normocephalic, normal conjunctiva/sclera, normal eyelids/periorbENT: dry mucosal membraneNeck: full range of motion, non-tender, no bruit/NL carotids, no lymphadenopathy, no masses or swellingBreast: symmetricalCardiovascular: normal capillary refill, regular rate rhythm, normal heart sounds, BP/pulses equal bilat., no gallop, no heave, no murmurRespiratory: clear to auscultation, no distress, no tenderness, aerating well, symmetric expansionAbdomen/GI: active bowel sounds, soft, non-tender, no guarding, no rebound, no distention (obese)Extremities: moves all, no edema-all extremities, normal tone, no calf tenderness, no clubbing, no cyanosis, no evidence of DVTMusculoskeletal: CVA tenderness (right cva tendernss), normal inspectionNeuro/CPR AMBULANCE DRIVER: alert, oriented X 3, normal speech, no motor deficits, no sensory deficits Cranial nerves:Normal: I, II, III, IV, V, , VII, VIII, IX, X, XI, XII. Diagnosis, Assessment PlanProblem List/A P: 1. Pyelonephritis Plan discussed with: patient Code Status/Resusc. DiscussionResuscitation discussion: Discussed with: patientCode status: full code Free Text DxA P NotesFree Text DxA P Notes: Diagnosis1.Pyelonephritis2 nicotine abuse3. History of PUD4. Anxiety and depression Plan:Start Rocephin 1 g dailymorphine 2 mg IV every 3 hours as needed for severe painNorco p.o. as needed for moderate painTylenol every 4 hours as needed for temperature greater than 100.4Blood cultures pendingUA with reflex culturesContinue Klonopin dailyfamotadine dailyencourged and counseled on cessationnicotine patch daily full codenext of kin Danya [phone] at 1918 RPT #: [id number] OF REPORT HPHistory and physical hfjjbigpwmr5338-35-95R14:53:00L.[id number] AVAvailable for patient dwtdCMGQPWKWAAKUIH6643-26-63Q21:18:50 [facility] 2019-10-04 12:37:00 OAxhoeuyggd94837471W a/MhaURko8/5UyUEY2Cnp0oNO+mh7 vlgHQ9bE488qesyU4m6BgIwxsQ81LqXGl58956-46-90C80:3 7:[address] [facility] ([facility])EMERGENCY PROVIDER REPORTREPORT#:[id number] REPORT STATUS: SignedDATE:10/04/19 TIME:1237 PATIENT: ERICKA ZULUAGA UNIT #: [id number]#: [id number] [facility] AGE: 39 SEX: F PCP PHYS: No Primary or Family PhysicianSERVICE AUTHOR: Evy Cristina MD * ALL edits or amendments must be made on the electronic/computer document * HPI- Female GeneralInitial Greet Date/Time 10/04/19 1233 PresentationChief Complaint Abdominal pain)( Sudden in Onset? NoOnset Occurred Days ago (x 2)Symptom Duration Since onset, ConstantProgression since Onset Unchanged, ConstantContext of Onset SpontaneousCaused by No trauma by historyLocation Flank R, Flank LQuality PainfulRadiationDoes not radiate. Severity: Current Pain level 10 out of 10Associated withReports: Fever. Free Text HPI NotesFree Text HPI Xjlwi42ag WF with PMH of anxiety, depression, gastritis, PUD, migraine, renal stones and PTSD transferred from [place] in [place] for pyelonephritis. Given Rocephin and Levaquin at OSH. Review of Systems ROS StatementsAll systems rev neg except as marked. Focused Review of SystemsConstitutionalDenies: Chills, Fever, Lethargy. Ears/Nose/ThroatDenies: Earache bilat, Nasal congestion, Sore throat. GIDenies: Abdominal pain, Diarrhea, Nausea, Vomiting. FemaleReports: Flank pain. Denies: Dysuria. MusculoskeletalDenies: Back pain, Extremity pain. EndocrineDenies: Polyuria, Weight loss. SkinDenies: Diaphoresis, Rash. NeurologicDenies: Change LOC, Dizziness, Focal weakness, Headache, Numbness, Slurred speech. Past Medical History - AdultStated Complaint ABDOMEN PAINAllergiesCoded Allergies:No Known Allergies (10/04/19) Home MedicationsReported MedicationsclonazePAM (KlonoPIN) 0.5 MG PO TID traZODone (DESYREL) 150 MG PO BEDTIME Smoking status for patients 13 years old or older: Unknown,if ever smoked Physical Exam Vital SignsVital SignsFirst Documented: Result Date Time Pulse Ox 96 [...] Review of Vital Signs Reviewed, Vital signs normal Focused PEGeneral/Const General/Const Awake, Alert, Well appearingResp/Chest Respiratory/Chest Breath sounds NL, Breath sounds = bilat, No respiratory distress, No rales, No rhonchi, No wheezingCardiovascular Cardiovascular Heart rate NL, Regular rhythm, Heart sounds NL, Peripheral circulation NLAbdomen/GI Abdomen/GI Soft, Non-tender, No guarding, No reboundMS Back Back Inspection NL, Non-tender, No CVA tendernessSkin Skin Color NL, No rash, Warm, Dry, Turgor NLGenitourinary Female Genitourinary External genitalia NL, No bleeding, No discharge, No cervical motion tend, Os closed, No adnexal mass, No adnexal tenderness, No uterine enlargement, No uterine mass, No lesions or rash Re-Evaluation MDM ED CourseMedication(s) OrderedMedication(s) Ordered:Central Nervous System Agents Sig/Rose Mary Start time Last Medication Dose Route Stop Time Status Admin Acetaminophen 650 MG Q4H PRN PRN 10/03 1330 AC 10/04 PO 11/02 1329 0653 Hydrocodone Bitart/ 1 TAB Q4H PRN PRN 10/03 1330 AC Acetaminophen PO 10/13 1329 Hydrocodone Bitart/ 1 TAB Q4H PRN PRN 10/03 1330 AC 10/05 Acetaminophen PO 10/13 1329 0520 [...] 11/02 1329 0302 Patient Discharge Departure Vital Signs/ConditionVital SignsFirst Documented: Result Date Time Pulse Ox 96 [...] signs available at the time of this entry have been reviewed. Clinical ImpressionClinical ImpressionPrimary Impression: Pyelonephritis Disposition DecisionAdmit Admit Physician Name Polly Araiza MD Admit Physician Hospitalist Request Time 1237 Request Date 10/04/19 )( Admission Accepts Yes )( Accepted Time 1237 )( Accepted Date 10/04/19 Call Information will see patient Discharge/Care PlanCounseled Regarding Diagnosis, Need for admission Admit NoteI have spoken with the patient and/or caregivers. I have explained the patient'scondition, diagnoses and treatment plan based on the information available to meat this time. I have answered the patient's and/or caregiver's questions and addressed any concerns. The patient and/or caregivers have as good an understanding of the patient's diagnosis, condition and treatment plan as can beexpected at this point. The patient has been stabilized within the capability ofthe emergency department. The patient will be transported for further care and management or will be moved to an observation or inpatient service. I have communicated with the staff or medical practitioner taking over this patient's care. at 0814 RPT #: [id number] OF REPORTEDEmerconway regional medical center department [id number] ilable for patient [id number] HCAPM
[2023-10-06] MEDS ORDERED: LORazepam 2 MG/ML VIAL ONE (07:18)
[2023-10-06] MEDS ORDERED: NA CHLORIDE 0.9% 1,000 ML ONE (07:28)
[2023-10-06 08:12] LABS: Absolute Basophils 0.1 K/uL (0-0.5); Absolute Eosinophils 0.2 K/uL (0-0.5); Absolute Lymphocytes (CBC) 2.1 K/uL (0.7-4.9); Absolute Monocytes 0.6 K/uL (0.1-1.3); Absolute Neutrophil 2.3 K/uL (1.8-8.0); Basophils % 1.2 % (0-1.3); Eosinophils % 3.3 % (0-4.4); Hematocrit 35.1 % (36.0-45.0); Hemoglobin 11.2 g/dL (12.0-15.0); MCH 25.1 pg (27.0-35.0); MCV 78.4 fL (80-100); MPV 8.3 fL (7.6-11.3); Monocytes % 11.6 % (3.3-12.3); Neutrophils % 43.9 % (41.7-73.7); Platelets 415 thou/uL (152-406); RBC Red Blood Cell Count 4.47 M/uL (3.86-4.86); Red Cell Distribution Width 17.8 % (12.1-15.2)
[2023-10-06 08:24] LABS: PT Prothrombin Time 11.3 SECONDS (9.5-12.5); PTT, Activated Partial Thromb 30.6 SECONDS (24.3-36.9); Protime INR 1.03
[2023-10-06 08:32] LABS: ALT/SGPT 16 U/L (13-56); AST/SGOT 11 U/L (15-37); Albumin 3.9 g/dL (3.4-5.0); Albumin/Globulin Ratio 0.9 (1.1-1.8); Alkaline Phosphatase 74 U/L (45-117); Anion Gap 7.3 mEq/L (5.0-15.0); BUN Blood Urea Nitrogen 10 mg/dL (7-18); Bicarbonate 27 mEq/L (21-32); Bilirubin Direct < 0.2 mg/dL (0-0.2); Bilirubin Indirect, Calculated 0.1 mg/dL (0.2-0.8); Bilirubin Total 0.3 mg/dL (0.2-1.0); Globulin 4.2 g/dL (2.3-3.5); Glomerular Filtration Rate 104 ml/min (=/>90); Glucose Level 81 mg/dL (74-106); Potassium 3.3 mEq/L (3.5-5.1); Protein, Total 8.1 g/dL (6.4-8.2); Sodium Level 137 mEq/L (136-145)
--- NOTE | 2023-10-06 09:32 | EDPHYS ---
Physician Documentation [facility] Name: Ericka Canales Age: 43 yrs Sex: Female : 1980 Arrival Date: 10/06/2023 Time: 06:47 Bed 13 Private MD: ED Physician Sabino Rendon HPI: 10/05 06:55 This 43 yrs old Female presents to ER via Unassigned with complaints of sp4 Altered Mental Status, PT STATES SHE FEELS LIKE THERE IS WORMS CRAWLING ON HER, Doesn't Feel Right. 07:46 The patient presents with trouble concentrating. Onset: The symptoms/episode adelso began/occurred 3 day(s) ago. Possible causes: drug use, alcohol, low blood sugar. Associated signs and symptoms: Pertinent positives: nausea, weakness. Current symptoms: In the emergency department the patient's symptoms are unchanged from the initial presentation, despite home interventions. Patient's baseline: Neuro: alert and fully oriented. The patient has not experienced similar symptoms in the past. 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 - Infectious Disease History:: Denies. - Social history:: Smoking status: Patient reports the use of cigarette tobacco products, smokes one pack cigarettes per day. Patient uses alcohol, on a daily basis. street drugs, Methamphetamine (Meth). - Family history:: not pertinent. ROS: 07:46 Constitutional: Negative for fever, chills, and weight loss, Eyes: Negative for injury, adelso pain, redness, and discharge, ENT: Negative for injury, pain, and discharge, Neck: Negative for injury, pain, and swelling, Cardiovascular: Negative for chest pain, palpitations, and edema, Respiratory: Negative for shortness of breath, cough, wheezing, and pleuritic chest pain, Abdomen/GI: Negative for abdominal pain, nausea, vomiting, diarrhea, and constipation, Back: Negative for injury and pain, : Negative for injury, bleeding, discharge, and swelling, MS/Extremity: Negative for injury and deformity, Skin: Negative for injury, rash, and discoloration, Neuro: Negative for headache, weakness, numbness, tingling, and seizure, Allergy/Immunology: Negative for hives, rash, and allergies, Endocrine: Negative for neck swelling, polydipsia, polyuria, polyphagia, and marked weight changes, Hematologic/Lymphatic: Negative for swollen nodes, abnormal bleeding, and unusual bruising, 07:46 Neuro: Positive for weakness, 07:46 Psych: Positive for anxiety, depression, drug dependence, visual hallucinations, Exam: 07:46 Constitutional: This is a well developed, well nourished patient who is awake, alert, adelso and in no acute distress. Head/Face: Normocephalic, atraumatic. Eyes: Pupils equal round and reactive to light, extra-ocular motions intact. Lids and lashes normal. Conjunctiva and sclera are non-icteric and not injected. Cornea within normal limits. Periorbital areas with no swelling, redness, or edema. ENT: Nares patent. No nasal discharge, no septal abnormalities noted. Tympanic membranes are normal and external auditory canals are clear. Oropharynx with no redness, swelling, or masses, exudates, or evidence of obstruction, uvula midline. Mucous membranes moist. Neck: Trachea midline, no thyromegaly or masses palpated, and no cervical lymphadenopathy. Supple, full range of motion without nuchal rigidity, or vertebral point tenderness. No Meningismus. Chest/axilla: Normal chest wall appearance and motion. Nontender with no deformity. No lesions are appreciated. Cardiovascular: Regular rate and rhythm with a normal S1 and S2. No gallops, murmurs, or rubs. Normal PMI, no JVD. No pulse deficits. Respiratory: Lungs have equal breath sounds bilaterally, clear to auscultation and percussion. No rales, rhonchi or wheezes noted. No increased work of breathing, no retractions or nasal flaring. Abdomen/GI: Soft, non-tender, with normal bowel sounds. No distension or tympany. No guarding or rebound. No evidence of tenderness throughout. Back: No spinal tenderness. No costovertebral tenderness. Full range of motion. Skin: Warm, dry with normal turgor. Normal color with no rashes, no lesions, and no evidence of cellulitis. MS/ Extremity: Pulses equal, no cyanosis. Neurovascular intact. Full, normal range of motion. Neuro: Awake and alert, GCS 15, oriented to person, place, time, and situation. Cranial nerves II-XII grossly intact. Motor strength 5/5 in all extremities. Sensory grossly intact. Cerebellar exam normal. Normal gait. Psych: Awake, alert, with orientation to person, place and time. Behavior, mood, and affect are within normal limits. 09:32 ECG was reviewed by the Attending Physician. adelso Vital Signs: 07:02 BP 108 / 83; Pulse 82; Resp 17; Temp 98.1(O); Pulse Ox 100% on R/A; Weight 58.97 kg lg3 (R); Height 5 ft. 6 in. (R); 08:00 BP 120 / 92; Pulse 71; Resp 16; Pulse Ox 100% ; db 08:45 BP 103 / 79; Pulse 71; Resp 16; Pulse Ox 100% on R/A; db 09:45 BP 122 / 88; Pulse 64; Resp 18; Pulse Ox 100% on R/A; db 10:00 BP 100 / 73; Pulse 67; Resp 20; Pulse Ox 100% on R/A; db 10:30 BP 101 / 65; Pulse 69; Resp 16; Pulse Ox 99% on R/A; db 11:00 BP 107 / 75; Pulse 66; Resp 17; Pulse Ox 100% ; db 07:02 Body Mass Index 20.98 (58.97 kg, 167.64 cm) lg3 MDM: 07:15 Patient medically screened. adelso 07:48 Differential Diagnosis: electrolyte abnormality, alcohol intoxication, hypoglycemia, adelso overdose, UTI, volume depletion. Data reviewed: vital signs, nurses notes, lab test result(s), EKG. Consideration of Admission/Observation Escalation of care including admission/observation considered. I considered the following discharge prescriptions or medication management in the emergency department Medications were administered in the Emergency Department. See MAR. Independent interpretation of the following test(s) in the Emergency Department EKG: See my EKG interpretation above. Test considered but Not performed: CT: no ct head. Historians other than the Patient: pt well informed and open. Care significantly affected by the following chronic conditions: drug use. 10/05 06:55 Order name: Urine Drug Screen sp4 10/05 07:19 Order name: Acetaminophen; Complete Time: 09:30 [facility] 10/05 07:19 Order name: Basic Metabolic Panel; Complete Time: 09:30 [facility] 10/05 07:19 Order name: CBC with Diff; Complete Time: 09:30 [facility] 10/05 07:19 Order name: ETOH Level; Complete Time: 09:30 [facility] 10/05 07:19 Order name: Hepatic Function; Complete Time: 09:30 [facility] 10/05 07:19 Order name: PT-INR; Complete Time: 09:30 [facility] 10/05 07:19 Order name: Test, Urine [facility] 10/05 07:19 Order name: Ptt, Activated; Complete Time: 09:30 [facility] 10/05 07:19 Order name: Salicylate; Complete Time: 09:30 [facility] 10/05 07:19 Order name: Urinalysis w/ reflexes [facility] 10/05 07:19 Order name: EKG; Complete Time: 07:19 [facility] 10/05 07:19 Order name: EKG - Nurse/Tech; Complete Time: 08:12 [facility] 10/05 07:19 Order name: IV Saline Lock; Complete Time: 08:12 [facility] 10/05 07:19 Order name: Labs collected and sent; Complete Time: 08:12 [facility] 10/05 07:19 Order name: Suicide Screening ([place]); Complete Time: 08:12 [facility] EC:32 Rate is 55 beats/min. Rhythm is regular. QRS [place] is Normal. [place] interval is normal. QRS adelso interval is normal. QT interval is normal. No Q waves. T waves are Normal. No ST changes noted. Clinical impression: NSR w/ Non-specific ST/T Changes and No evidence of ischemia. Interpreted by me. Reviewed by me. Administered Medications: 07:23 Drug: LORazepam IM 4 mg IM once Route: IM; Site: right deltoid; db 11:26 Follow up: Response: No adverse reaction db 07:58 Drug: NS 0.9% IV 1000 ml IV at 1 bolus Per protocol; 1000 mL bolus Route: IV; Rate: 1 db bolus; Site: right antecubital; 11:25 Follow up: Response: No adverse reaction; IV Status: Completed infusion; IV Intake: db 1000ml 09:48 Drug: Potassium PO Effervescent Tablet 25 mEq PO once; dissolve in 4 ounces of water or db juice Route: PO; 11:25 Follow up: Response: No adverse reaction db 11:25 Not Given (Physician Discretion): ns 0.9% with kcl20 meq/l 1000 ml IV at 500 ml/hr db continuous Disposition Summary: 10/06/23 09:31 Discharge Ordered Notes: Location: Home adelso Problem: new adelso Symptoms: have improved adelso Condition: Stable adelso Diagnosis - Abuse of other non-psychoactive substances adelso - Adverse effect of amphetamines adelso - Hypokalemia adelso Followup: adelso - With: Private Physician - When: 2 - 3 days - Reason: Recheck today's complaints, Continuance of care, Re-evaluation by your physician Followup: adelso - With: Yonatan Lawrence MD - When: 2 - 3 days - Reason: Recheck today's complaints, Re-evaluation by your physician Discharge Instructions: - Discharge Summary Sheet adelso - Finding Treatment for Addiction adelso - Amphetamines Use Disorder adelso - Potassium Content of Foods adelso - Substance Use Disorder adelso - Supporting Someone With an Addiction adelso - Methamphetamines Use Disorder adelso - Hypokalemia adelso - Illegal Drug Use Information, Adult adelso - Recovering From Addiction adelso - Supporting Someone With Substance Use Disorder adelso Forms: - Medication Reconciliation Form adelso - Antibiotic Education adelso - Prescription Opioid Use adelso - Patient Portal Instructions adelso - Leadership Thank You Letter adelso Signatures: Dispatcher [employer] Sabino Guzmán MD MD cha Able, Lacie RN RN lg3 Eunice Galvez RN RN db Kiran Wilde MD MD sp4 Corrections: (The following items were deleted from the chart) 07:19 07:19 ACETAMINOPHEN+C.LAB.BRZ ordered. EDMS EDMS 07:19 07:19 BASIC METABOLIC PANEL+C.LAB.BRZ ordered. EDMS EDMS 07:19 07:19 CBC+H.LAB.BRZ ordered. EDMS EDMS 07:19 07:19 ETHANOL+C.LAB.BRZ ordered. EDMS EDMS 07:19 07:19 HEPATIC FUNCTION+C.LAB.BRZ ordered. EDMS EDMS 07:19 07:19 PROTIME (+INR)+COAG.LAB.BRZ ordered. EDMS EDMS 07:19 07:19 Test, Urine+UC.LAB.BRZ ordered. EDMS EDMS 07:19 07:19 PTT, ACTIVATED+COAG.LAB.BRZ ordered. EDMS EDMS 07:19 SALICYLATE+C.LAB.BRZ ordered. EDMS EDMS 07:19 Urinalysis+U.LAB.BRZ ordered. EDMS EDMS
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
[2023-10-06] MEDS ORDERED: POTASSIUM 25 MEQ EFFERV TAB ONE (09:52)
[2023-10-06 12:12] LABS: Specific Gravity 1.026 (1.005-1.030)
[2023-10-06 12:15] LABS: Specific Gravity 1.026 (1.005-1.030); Urine Bacteria 20-50 /HPF (<20); Urine Bilirubin NEGATIVE (Negative); Urine Blood Trace (Negative); Urine Clarity Extremely Turbid (Clear); Urine Color Yellow (Yellow); Urine Culture Reflex Order NOT NEEDED; Urine Glucose NEGATIVE (Negative); Urine Ketones NEGATIVE (Negative); Urine Microscopic Reflex YN ORDER UMIC; Urine Mucus Slight /HPF (None Seen); Urine Nitrite 2+ (Negative); Urine Protein TRACE (Negative); Urine RBC <5 /HPF (None Seen); Urine Urobilinogen Normal (Normal); Urine WBC <5 /HPF (<5); Urine pH 5.5 (5.0-7.0)
[2023-10-06 12:25] LABS: Barbiturates NEGATIVE (NEGATIVE); Benzodiazepines NEGATIVE (NEGATIVE); Cocaine NEGATIVE (NEGATIVE); METHAMPHETAM POSITIVE (NEGATIVE); Methadone NEGATIVE (NEGATIVE); Opiates NEGATIVE (NEGATIVE); Phencyclidine NEGATIVE (NEGATIVE); THC Cannibis POSITIVE (NEGATIVE)
[2023-10-06 12:29] VITALS: BP 107/75; TEMP 98.1; O2SAT 100
--- NOTE | 2023-10-08 14:13 | EKG ---
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
== END 2023-10-06 12:06 | disposition home or self-care (01) ==
LOC: ER 06:47
DX: F55.8 Abuse of other non-psychoactive substances (principal); T43.625A Adverse effect of amphetamines, initial encounter; E87.6 Hypokalemia
CPT/HCPCS: 96361; 93005; 85025; 81001; 80048; 36415; 81025; 85610; 80076; 85730; 80307; 96360; 96372; 99285; 80143; 80179; 82077; J7030

== ENCOUNTER 2023-10-20 03:48 | Emergency (ER) | payer BC ==
--- OUTSIDE RECORDS SUMMARY | 2023-10-20 03:51 | XMS REPORT | Continuity of Care Document ---
Author Name Unknown Address [address] [facility] [address] [place] [address] [facility] thconnect Address [address] [facility] [address] [place] [address] Care Team Providers Care Savings Counselor Name Role Phone BEVERLY XIE Primary Care Physician UnavailMAGGY Singletary Attending Clinician UnavailMaggy Vidales DO Attending Clinician [phone] MELISSA ENCISO Attending Clinician UnavailMelissa Hope MD Attending Clinician [phone] Polly Araiza Attending Clinician Unavailable Physician, No Primary or Family Admitting Clinic tammy Unavailable Payers Payer Name Policy Type Policy Number Effective Date Expirati on Date Source [facility] [id number] 2017 00:00:00 Problems Condition Name Condition Details Condition Category Status Onset Date Resolution Date Last Treatment Date Treating Clinician Comments Source Esophageal ulcer Esophageal ulcer Disease Active 01-12 00:00: 00 [facility] Dehydratio n Dehydratio n Disease Active 01-10 00:00: 00 [facility] Intractabl e vomiting Intractabl e vomiting Disease Active 01-09 00:00: 00 [facility] Allergies, Adverse Reactions, Alerts Allergy Name Allergy Type Status Severity Reaction(s) Onset Date Inactive Date Treating Clinician Comments Source No Known Allergie s DA Active U 10-03 00:00: 00 [facility] No Known Allergie s DA Active 10-03 00:00: 00 [facility] NO KNOWN ALLERGIE S Drug Class Active [facility] Social History Social Habit Start Date Stop Date Quantity Comments Source History of tobacco use Cigarette Smoker [facility] Exposure to SARS-CoV-2 (event) 2022-03-16 00:00:00 2022-03-26 14:46:00 Not sure [facility] Alcohol intake 2017-01-12 00:00:00 2017-01-12 00:00:00 Current drinker of alcohol (finding) [facility] Cigarettes smoked current (pack per day) - Reported 2017-01-09 00:00:00 2017-01-09 00:00:00 [facility] Tobacco Comment 2017-01-09 00:00:00 2017-01-09 00:00:00 1 Cpack every 2 days [facility] Sex Assigned At 1980 00:00:00 1980 00:00:00 [facility] Smoking Status Start Date Stop Date Source Smokes tobacco daily 2017-01-09 00:00:00 [facility] Medications Ordered Medication Name Filled Medication Name Start Date Stop Date Current Medication? Ordering Clinician Indication Dosage Frequency Signature (SIG) Comments Components Source ondansetron (ZOFRAN-ODT ) disintegrat ing tablet 4 mg 2021-05 22:00: 00 03-26 21:49 :00 No 4mg 4 mg, Oral, ONCE, 1 dose, On 03/26/22 at 1600, Routine [facility] ibuprofen (IBU) tablet 600 mg 2021-05 21:00: 00 03-26 21:49 :00 No 600mg 600 mg, Oral, ONCE, 1 dose, On 03/26/22 at 1500, JOVON [facility] methylPREDN ISolone (MEDROL, OLLIE,) 4 mg tablets 11-12 00:00: 00 Yes [id number] Take by mouth SEE-INSTRU CTIONS. follow package directions [facility] traMADOL 50 mg tablet 01-12 00:00: 00 Yes 50mg Take 1 tablet by mouth every 8 (eight) hours as needed for Pain (scale 4-6) or Pain (scale 7-10). [facility] ondansetron 4 mg tablet 01-12 00:00: 00 Yes 4mg Take 1 tablet by mouth every 6 (six) hours as needed for Nausea and Vomiting (N/V). [facility] Vital Signs Vital Name Observation Time Observation Value Comments S ource Systolic blood pressure 2022-03-26 20:43:00 154 mm[Hg] [facility] Diastolic blood pressure 2022-03-26 20:43:00 88 mm[Hg] [facility] Heart rate 2022-03-26 20:43:00 98 /min [facility] Body temperature 2022-03-26 20:43:00 36.56 Sherita [facility] Respiratory rate 2022-03-26 20:43:00 18 /min [facility] Body weight 2022-03-26 20:43:00 63.504 kg [facility] BMI 2022-03-26 20:43:00 22.60 kg/m2 [facility] Oxygen saturation in Arterial blood by Pulse oximetry 2022-03-26 20:43:00 99 /min [facility] Systolic blood pressure 2019-11-13 14:09:00 116 mm[Hg] [facility] Diastolic blood pressure 2019-11-13 14:09:00 74 mm[Hg] [facility] Respiratory rate 2019-11-13 14:09:00 18 /min [facility] Body height 2019-11-13 14:09:00 167.6 cm [facility] Body weight 2019-11-13 14:09:00 90.719 kg [facility] BMI 2019-11-13 14:09:00 32.28 kg/m2 [facility] Procedures Procedure Date / Time Performed Performing Clinicia n Source NOTICE OF PRIVACY PRACTICES 2022-03-26 20:36:23 Doctor Unassigned, Wynona [facility] CONSENT/REFUSAL FOR DIAGNOSIS AND TREATMENT 2022-03-26 20:33:44 Doctor Unassigned, Wynona [facility] [id number] 2019-10-10 00:00:00 GREGORIO [facility] [id number] 2019-10-10 00:00:00 GREGORIO [facility] Encounters Start Date/Time End Date/Time Encounter Type Admission Type Attending [facility] Facility Care Department Encounter ID Source 2019-10-04 12:28:00 Inpatient HCAPM HUGH [id number] [facility] 2022-03-26 14:47:00 2022-03-26 16:46:00 Emergency X MAGGY QUEEN [facility] ERT [id number] [facility] 2022-03-26 14:47:00 2022-03-26 16:46:00 Emergency Maggy Queen [facility] [id number] [facility] 2019-11-13 09:45:00 2019-11-13 09:45:00 Outpatient R MELISSA ENCISO [facility] [id number] [facility] 2019-11-13 09:04:47 2019-11-13 09:41:46 Office Visit Melissa Enciso [facility] 1..840.114 [id number] [id number] [id number] [facility] 2019-10-04 23:54:00 2019-10-04 23:54:00 Outpatient Polly Araiza [facility] [id number] [facility] Results Test Description Test Time Test Comments Results Resul t Comments Source SURG 2019-10-13 15:39:00 ----RUN DATE: 10/13/19 [facility] [place] - LAB PAGE 1 RUN TIME: 1539 Specimen Inquiry RUN USER: INTERFACE ----PATIENT: ERICKA ZULUAGA LOC: [place] U #: [id number] AGE/SX: 39/F ROOM: [facility] RE10/04/19REG DR: Polly Araiza MD : 78 BED: 1 DIS: 10/10/19 STATUS: DIS IN TLOC: ---- SPEC #: [id number] RECD: 10/10/19 STATUS: CHRISSY REQ #: [id number] ANA: 10/10/[address]: Polly Araiza MD ENTERED: 10/10/19 SP TYPE: SURG OTHR DR: No Primary or Family Physician Self Referred Rob Stevens MD, Bilal MDORDERED: AB/PAS MARTÍNEZ, SURG PATH LVL 4/2, PATH STAIN GROU COPIES TO: No Primary or Family Phys[place] [address] [place] [address] Rob Stevens MD [address] [place], [place] [address] Steven Crisostomo MD [address] [place] [address] HISTOLOGY: TISSUE ID BLK PCS MING LEV [...] CONTINUED ON NEXT PAGE ----RUN DATE: 10/13/19 [facility] PAGE 2 RUN TIME: 1539 Specimen Inquiry RUN USER: INTERFACE ----SPEC #: [id number] PATIENT: ERICKA ZULUAGA #[id number] (Continued) CLINICAL HISTORY PYELONEPHRITIS CPT CODES CPT CODE(S): 11632X7 , 47124 , 39576 , , , , FINAL DIAGNOSIS A. [...] all as B. ba/nr Grossing performed at [facility] Pathology, [address] [place] [address], [address], [place] [address]. Casket Inspector: Jorge Camp M.D. MICROSCOPIC DESCRIPTION A. Duodenum [...] 1539 ---- END OF REPORT BASIC METABOLIC [id number] 07:24:00* Test Item Value Reference Range Interpretation [...] CA) 9.1 MG/DL 8.5-10.1 N CBC W/AUTO [id number] 07:07:00* Test Item Value Reference Range Interpretation [...] CRITERIA - HEPA IMAG INCL GB W [id number] 16:22:00FAX: Polly Mccullough MD [phone] Camps: PM St: ADM FAX: Efren Tripp MD Name: ERICKA ZULUAGA [facility] : 1980 Age/S: 39/F [address] Unit #: [id number] Loc: [address] [place] [address] Phys: Efren Montez MD Acct: [id number] Dis Date: Status: ADM IN PHONE #: [phone] Exam Date: 10/07 1605 FAX #: Reason: evaluate for acute cholecystitis EXAMS: CPT: [id number] HEPA IMAG INCL GB W PHA 12174 HIDA scan. DIAGNOSIS: evaluate for acute cholecystitis [...] Signed Report (CONTINUED) FAX: Polly Mccullough MD [phone] Camps: PM St: ADM FAX: Efren Tripp MD Name: ERICKA ZULUAGA [facility] : 1980 Age/S: 39/F [address] [facility] [address] Unit #: [id number] Loc: [address] [place] [address] Phys: Efren Montez MD Acct: [id number] Dis Date: Status: ADM IN PHONE #: [phone] Exam Date: 10/08/2019 1605 FAX #: Reason: evaluate for acute cholecystitis EXAMS: CPT: [id number] HEPA IMAG INCL GB W PHA 59853 (Continued) CC: Polly Araiza MD; Efren Montez MD Technologist: YOLANDA Partt Transcribed Date/Time/By:10/08/2019 (7509) :[email or web address] Orig Print D/T: S: 10/08/2019 (5713) PAGE 2 Signed Report- US ABDOMEN KQXJLLJZ3930-26-70 08:52:00 Name: ERICKA ZULUAGA [place] : 1980 Age/S: 39 / F [address] Unit #: [id number] Loc: [place] [address] Phys: Steven Crisostomo MD Acct: [id number] Dis Date: Status: ADM IN PHONE #: [phone] Exam Date: 10/08/2019814 FAX #: Reason: pyelo/pain upper abdomen EXAMS: CPT:[id number] US ABDOMEN COMPLETE 30055 EXAM: - US ABDOMEN COMPLETE HISTORY: pyelo/pain upper abdomen Location code:S17 TECHNIQUE: Survey ultrasound imaging of the complete abdomen was performed including color Doppler evaluation of the main portal vein with representative government relations images obtained. COMPARISON: CT abdomen and pelvis [...] 1 Signed Report (CONTINUED) Name: ERICKA ZULUAGA [place] : 1980 Age/S: 39 / F [address] Unit #: [id number] Loc: [place] [address] Phys: Steven Crisostomo MD Acct: [id number] Dis Date: Status: ADM IN PHONE #: [phone] Exam Date: 10/08/2019 0815 FAX #: Reason: pyelo/pain upper abdomen EXAMS: CPT: [id number] US ABDOMEN COMPLETE 10706 (Continued) Vessels: The visualized IVC in the [...] PAGE 2 Signed Report Name: ERICKA ZULUAGA [place] : 1980 Age/S: 39 / F [address] Unit #: [id number] Loc: [place] [address] Phys: Steven Crisostomo MD Acct: [id number] Dis Date: Status: ADM IN PHONE #: [phone] Exam Date: 10/08/2019 0815FAX #: Reason: pyelo/pain upper abdomen EXAMS: CPT: [id number] US ABDOMEN COMPLETE 95430 (Continued)Orig Print D/T: S: 10/08/2019 (0855) Probe: PAGE 3 Signed ReportDRUGS OF ABUSE SCREEN RM8090-29-73 06:29:00* Test Item Value Reference Range Interpretation [...] SCcutoff <300 NG/ML - CT ABD PELVIS W/TSVE8902-18-13 16:30:00Name: ERICKA ZULUAGA [facility] : 1980 Age/S: 39 / F [address] [facility] Unit #: [id number] Loc: [place] [address] Phys: Efren Montez MD Acct: [id number] Dis Date: Status: ADM IN PHONE #: [phone] Exam Date: 10/06/2019 1607 FAX #: Reason: R/O KIDNEY STONES EXAMS: CPT: [id number] CT ABD PELVIS W/CONT 84702 HISTORY: R/O KIDNEY STONES EXAM TYPE: CT [...] ZULUAGA : 1980 Age/S: 39 / F [address] Unit #: [id number]: [place] [address] Phys: Efren Montez MD Acct: [id number] Dis Date: Status: ADM IN PHONE #: [phone] Exam Date: 10/06/2019 1605 FAX #: Reason: R/O KIDNEY STONES EXAMS: CPT: [id number] CT ABD PELVIS W/CONT 47914 (Continued) The appendix is not visualized but [...] (1630) YonisKW9 Orig Print D/T: S: 10/06/2019 (6018) PAGE 2 Signed ReportUR HCG [id number] 14:49:00* Test Item Value Reference Range Interpretation Comme nts UR HCG QUAL (test code = HCGQLU) NEGATIVE NEGATIVE Novel Coronavirus 09:02:00* Test Item Value Reference Range Interpretation Comme nts Novel Coronavirus 2018 Inhouse (test code = SUWWP52KZ) Negative Negative Positive resul ts are indicative of the presence kpPVGE-DyP-2 RNA, clinical correlation with patient historyand other [...] Novel Coronavirus 2019 Inhouse (test code = JJTTE33KT) Negative Negative Positive resul ts are indicative of the presence zzVWYM-LsS-3 RNA, clinical correlation with patient historyand other [...] for the identification of SARS-CoV-2 RNA usingthe treadalong M2000 System under the FDA Emergency UseAuthorization. The testing is performed by personneltrained in the procedures for the Dominguez M2000 moleculardiagnostic SARS-CoV-2 assay in vitro. Testing Criteria: FeverUA RFLX MICR CULT IF XZFQESPSC3356-74-99 23:32:00* Test Item Value Reference Range Interpretation [...] Dysuria/Frequency Flank PainUA RFLX MICR CULT IF GNDSXVKKZ1541-25-30 23:26:00* Test Item Value Reference Range Interpretation [...] CATHETERIndication for culture: Dysuria/Frequency Flank PainCBC W/AUTO TQMB8212-10-40 14:20:00* Test Item Value Reference Range Interpretation [...] = MDIFF) NO DIFF/SCN CRITERIA BASIC METABOLIC NBHZW7599-50-85 14:13:00* Test Item Value Reference Range Interpretation [...] CA) 7.8 MG/DL 8.5-10.1 L BASIC METABOLIC ZYBWK4301-79-08 14:06:00* Test Item Value Reference Range Interpretation [...] Notes Date/Time Note Provider Source 2019-10-10 17:09:00 PWikabkvwhm81334499l 2U0a2WcnZupip6f3uNdM3QHGu7UWA Ob1XRbgHHT/batBtLnSlNDkRVY7QyktFPJ2132-22-54F74:0 9:00 [facility] ([facility])Hospitalist Discharge SummaryREPORT#:[id number] REPORT STATUS: SignedDATE:10/10/19 TIME:1709 PATIENT: ERICKA ZULUAGA UNIT #: [id number]#: [id number] [address] [birth year] AGE: 39 SEX: F ATTEND: Polly Araiza [facility] AUTHOR: Efren Montez MD * ALL edits [...] feverof 102.3 prior to being evaluated at [facility]. She was transferred from [facility] emergency room in [place] Free Text DxA P NotesFree text DxA P notes:1. PyelonephritisContinue morphine 4 mg every 4 hours as neededRocephin 1 g every 24 hoursAntiemetics as neededSupportive management with antipyreticsCultures and urine culture negPatient was noted to have high fevers FARMHAND but none here-ruled out COVID 19 with [...] EVERYDAY AT BEDTIME - SIG Obtained From [employer] DiveFirSkicka Tårta Start taking the following new medications:PANTOPRAZOLE DR [...] daysPrescriptions: on chart at 1720 RPT #: [id number] OF REPORT DSDischarge bepomab0523-03-24G37:09:00L.SJPE77250723-8131NVRw ailable for patient ephtABIGCWIZNIDGTA9191-76-83W04:21:13 [facility] 2019-10-10 16:29:00 TSfmvtxvirh00751281s R2rduhXqr0X0xsGu48z05Cc0c+nzc +i3AI6XkLdMuG/ALJRgT41kpxbav6vJIAA6939-14-42H81:2 9:00 [facility] ([facility]Post Anesthesia EvaluationREPORT#:[id number] REPORT STATUS: SignedDATE:10/10/19 TIME:1629 PATIENT: ERICKA ZULUAGA UNIT #: [id number]#: [id number] [address] [birth year] AGE: 39 SEX: F ATTEND: Polly Araiza [facility] AUTHOR: Arlin Cardoso VP ANALYSIS * ALL edits or amendments must be [...] 18 119/82 94.5 93 / 1132 Nasal 2.422077 cannula 10/09 1125 56 18 102/64 96 Room air / 1120 58 22 113/78 97 Room air / 1115 36.4 61 40 121/61 96 Nasal 2.916365 cannula / 1032 36.9 55 18 130/72 97 Room air 06/05 0848 59 16 149/86 106.6 / 0712 36.9 56 18 107/70 82.6 94 Cardiovascular: no change, CV system stable, vital signs stableRespiratory/Airway: respiratory system stable, maintains without supportPain: adequately controlledHydration: adequateTemp status: normothermicPresence of N/V: noAnesthesia complications: noOther changes requiring f/u: noneConclusions: no apparent anes. issues at 1629 RPT #: [id number] OF REPORT CLClinical bfpn8702-40-71B97:29:00L.LCET52161389-1548IVSwvin able for patient cdirJUELHHJWORPZBL1378-61-80I48:30:22 [facility] 2019-10-10 10:57:00 LDdkghcnovi72142648p ExO6eYr5uSqRP2HtSLQuq3ndiXvyv kbE6lg1xogQ5Jd+zbxIgYF3MEIwXsCZSIH1676-63-46Q25:5 7:859646[address] [place] [address] PATIENT NAME: ERICKA ZULUAGA ADMIT DATE: 10/04/19ACCOUNT NO: [id number] ROOM NO: [facility] AGE: 39 REPORT TYPE: ENDOSCOPY REPORT SEX: F ADMITTING PHYSICIAN: Polly Araiza MD ATTENDING PHYSICIAN: Polly Araiza MD Patient Name: Ericka Arce Procedure Date: 10/10/2019 10:57 AMMRN: [id number] of : 1980 Gender: FemaleAttending MD: Duke [...] AMEstimated Blood Loss: Estimated blood loss: none. [address] [place], [place] [address]Kbecegucr {5M4F9H8XU7FI087LY6D4938X10I70L9L}.pdf ProVation FT PDF at 1112 PATIENT NAME: CARLOS ARCEERICKA gvfldlm5937-91-36F08:12:00L.KGZ44057690-0008QTRzb ilable for patient ygwyXVGULKWVQPNFAS1565-29-50Z19:13:02 [facility] 2019-10-09 22:53:00 UJwdamjznha23974834s JLT7IKZdDFb56jLHYdzvGFrX8KKft qsJmsK1mqyYbAPX3lfV20zj+mz0Q38a8k96544-66-39B84:5 3:00 [facility] ([facility])Infectious Dis. Progress NoteREPORT#:[id number] REPORT STATUS: SignedDATE:10/09/19 TIME:2252 PATIENT: ERICKA ZULUAGA UNIT #: [id number]#: [id number] [facility] AGE: 39 SEX: F ATTEND: Polly Araiza [facility] AUTHOR: Steven Crisostomo MD * ALL edits [...] no edemaMusculoskeletal: full range of motion, normal inspectionNeuro/DYEING MACHINE FEEDER: alert, oriented X 3Lymphatics: axilla normal, inguinal [...] planning as per at 1352 RPT #: [id number] OF REPORT PRProgress Uunw7920-31-85W19:53:00L.BVDQ92462541-0749TNXwlhv able for patient urzfGTDWCZRSFRWZES4040-25-02K85:53:16 [facility] 2019-10-09 14:08:00 CZtjertrfnk51496894A fMMqBXZYIEsMb/WHL1ZWm2UiXcRn+ rMX26hPsIqwPi+xnUFwAAJZajE9mKhz7Xy2596-69-44L86:0 8:00 [facility] Progress NoteREPORT#:[id number] REPORT STATUS: SignedDATE:10/09/19 TIME:1408 PATIENT: ERICKA ZULUAGA UNIT #: [id number]#: [id number] [address] [birth year] AGE: 39 SEX: F ATTEND: Polly Araiza [facility] AUTHOR: Efren Montez MD * ALL edits [...] moves allMusculoskeletal: CVA tenderness (cva tenderness of right)Neuro/DYEING MACHINE FEEDER: alert, oriented X 3 Diagnosis, Assessment PlanProblem [...] pain- nausea vomiting resolved today at 1410 [facility] #: [id number] OF REPORT PRProgress Jnnj2068-36-55K83:08:00L.NKED27931471-3395ADPpuwd able for patient bzvuUVZPWZFGLYVIFH9063-68-62X17:10:28 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 independent with adlsAllergies:Coded Allergies:No Known Allergies (10/04/19) Occupation:pharmacy delivery driver for waiterAmbulatory status: Independent Review of Systems [...] % (Auto) (20.5 - 51.1 %) 36.3 [place] % (Auto) (1.7 - 9.3 %) 9.7 H Eos % (Auto) (0.0 - 6.0 %) 4.2 Baso % (Auto) (0.0 - 2.0 %) 0.8 Neut # (Auto) (1.8 - 7.6 K/mm3) 2.9 Lymph # (Auto) (0.6 - 3.2 K/mm3) 2.2 [place] # (Auto) (0.3 - 1.1 K/mm3) 0.6 [...] antiemetics, analgesia PRN at 1047 RPT #: [id number] OF REPORT GNUdsashygqedm9037-93-45N66:30:00L.FKCI72206238-5 020AVAvailable for patient iuvaZBHBWDRULDLWCQ4706-51-27U53:47:56 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 machine set up operator independent with adlsAllergies:Coded Allergies:No Known Allergies (10/04/19) Occupation:pharmacy delivery driver for waiterAmbulatory status: Independent Review of Systems [...] % (Auto) (20.5 - 51.1 %) 36.3 [place] % (Auto) (1.7 - 9.3 %) 9.7 H Eos % (Auto) (0.0 - 6.0 %) 4.2 Baso % (Auto) (0.0 - 2.0 %) 0.8 Neut # (Auto) (1.8 - 7.6 K/mm3) 2.9 Lymph # (Auto) (0.6 - 3.2 K/mm3) 2.2 [place] # (Auto) (0.3 - 1.1 K/mm3) 0.6 [...] PRN at 1047 at 1436 RPT #: [id number] OF REPORT GWWiqttuelubza3257-13-88R91:30:00L.IINU46616003-2 020AVAvailable for patient uphjLMMHEGVMGOVASK0681-36-85M77:36:39 [facility] 2019-10-08 16:58:00 YZemzxxpujt31736526u 6q6ARK3IVeFBXOgyWtefJh2HWRn/H ik8tNSoj0y8EfCbi9v4l4x1mOlEorDuOIt5226-48-07Y67:5 8:00 [facility] ([facility])Infectious Dis. Progress NoteREPORT#:[id number] REPORT STATUS: SignedDATE:10/08/19 TIME:1657 PATIENT: ERICKA ZULUAGA UNIT #: [id number]#: [id number] [address] [birth year] AGE: 39 SEX: F ATTEND: Polly Araiza [facility] AUTHOR: Steven Crisostomo MD * ALL edits [...] no edemaMusculoskeletal: full range of motion, normal inspectionNeuro/DYEING MACHINE FEEDER: alert, oriented X 3Lymphatics: axilla normal, inguinal [...] data:Recent Impressions:ULTRASOUND - US ABDOMEN COMPLETE 10/07 8243 Report Impression - Status: SIGNED Entered: 10/08/2019 0865 IMPRESSION: 1. Contracted gallbladder which limits evaluation [...] planning as per at 2338 RPT #: [id number] OF REPORT PRProgress Mqyy9426-42-69H04:58:00L.IBVH03294556-2954RDJwrie able for patient dfhfGOMJYUPHENDVHC9200-26-54P99:38:36 [facility] 2019-10-08 02:01:00 URdmrozoeqh35226069+ jCllzgUvmZUfZL+yLW5PTIj2UTQNt Mr8+HZBS7EFQYJqNKoH61orOByVoSq0I793771-50-51W02:0 1:276650-7069 [facility] [address] [place] [address] PATIENT NAME: ERICKA ZULUAGA ADMIT DATE: 10/04/19ACCOUNT NO: [id number] ROOM NO: [facility] AGE: 39 REPORT TYPE: CONSULTATION SEX: F [...] [facility] with complaints of increased frequency ofurine retention, [...] MD WT: CON:OMAR/CHETNA/NTSDD: 10/08/2019 02:01:30DT: 10/08/2019 04:40:33Conf#: [id number]#: [id number] PATIENT NAME: ERICKA ZULUAGA Authenticated by Steven Crisostomo MD On 11/19/2019 02:26:11 AM at 0226 PATIENT NAME: ERICKA ZULUAGA :40:00L.PR [id number] for patient jszhDUZZCGAKGOGTJS2284-67-54H30:26:47 [facility] 2019-10-07 17:52:00 TKpgwrnhdrl46966162s al1bdsP2TPWjrMdY80pI/sW2cQF0U vaZkXdnK08eNk2IM3YyG3wsDlSbEWm1wpH9130-34-35G79:5 2:00 [facility] ([facility])Infect Dis Consult Note_ BriefREPORT#:[id number] REPORT STATUS: SignedDATE:10/07/19 TIME:1751 PATIENT: ERICKA ZULUAGA UNIT #: [id number]#: [id number] ROOM/BED: Y154-1NGL: 79 AGE: 39 SEX: F ATTEND: Polly Araiza [facility] AUTHOR: Steven Crisostomo MD * ALL edits or amendments must be made on the electronic/computer document * History - Adult longitudinalPast surgical history:Reports: Appendectomy, . Family history:Reports: Cancer (mother-lung ca). 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 2019-10-05 19:54:00 [id number] 1LnPX1Cb3Ic8mzg2ke+x4rc0Lzcmx Rw8wRj6ouykpICjq/nNLTjA2tDOYBHVdda5299-44-47O37:5 4:00 [facility] Progress NoteREPORT#:[id number] REPORT STATUS: SignedDATE:10/05/19 TIME:1953 PATIENT: ERICKA ZULUAGA UNIT #: [id number]#: [id number] [address] [birth year] AGE: 39 SEX: F ATTEND: Polly Araiza [facility] AUTHOR: Polly Araiza MD * ALL edits [...] AnxietyContinue home regimen of medications next at [facility] RPT #: [id number] OF REPORT PRProgress Vhwe0012-10-08Z44:54:00L.[id number] able for patient gopiYXGRAXCZUIVXVM9312-50-96V68:58:37 [facility] 2019-10-04 18:53:00 [id number] EdammC7eibTTUVOERJGR7VpI6qBYN UGDbe7NEr4Rr/UlCqvwZvNMsW6aGECCUmn0868-85-34W46:5 3:00 [facility] ([facility])History Physical - AdultREPORT#:[id number] REPORT STATUS: SignedDATE:10/04/19 TIME:1852 PATIENT: ERICKA ZULUAGA UNIT #: [id number]#: [id number] [address] [birth year] AGE: 39 SEX: F ATTEND: Polly Araiza [facility] AUTHOR: Polly Araiza MD * ALL edits [...] 102.3 today prior to being evaluated at [facility]. She was transferred from [facility] emergency room in [place]. 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 2019-10-04 12:37:00 [id number] a/MhaURko8/1GzYQU5Ipm7uIW+mh7 lepMH3dH111amnsP7p8ToSjfdI73PmYOm34000-48-75A52:3 7:00 [facility] ([facility])EMERGENCY PROVIDER REPORTREPORT#:[id number] REPORT STATUS: SignedDATE:10/04/19 TIME:1237 PATIENT: ERICKA ZULUAGA UNIT #: [id number]#: [id number] [facility] AGE: 39 SEX: F PCP PHYS: [...] Fever. Free Text HPI NotesFree Text HPI Nltee01yz WF with PMH of anxiety, depression, gastritis, PUD, migraine, renal stones and PTSD transferred from [place] in [place] for pyelonephritis. Given Rocephin and Levaquin at [...] this patient's care. at 0814 RPT #: [id number] OF REPORTEDEmercarroll regional medical center department fazoyy9360-31-52S10:37:00L.[id number] ilable for patient cmkkXVPSCEHBMOGVBB0197-94-30T83:14:31 HCAPM
[2023-10-20] MEDS ORDERED: DIPHENHYDRAMINE 25 MG TAB/CAP ONE (04:24)
[2023-10-20] MEDS ORDERED: KETOROLAC 30 MG/ML INJ ONE (04:24)
[2023-10-20 07:32] LABS: Sqamous Epithelial <5 /HPF (None Seen); Urine Bacteria None Seen /HPF (<20); Urine Bilirubin NEGATIVE (Negative); Urine Blood Negative (Negative); Urine Clarity Turbid (Clear); Urine Color Colorless (Yellow); Urine Culture Reflex Order NOT NEEDED; Urine Glucose NEGATIVE (Negative); Urine Ketones NEGATIVE (Negative); Urine Micro Reflex YN NO BILL MICROSCOPIC; Urine Mucus Slight /HPF (None Seen); Urine Nitrite NEGATIVE (Negative); Urine Protein NEGATIVE (Negative); Urine RBC <5 /HPF (None Seen); Urine Urobilinogen Normal (Normal); Urine WBC <5 /HPF (<5); Urine pH 7.5 (5.0-7.0)
[2023-10-20 07:42] LABS: Barbiturates NEGATIVE (NEGATIVE); Benzodiazepines NEGATIVE (NEGATIVE); Cocaine NEGATIVE (NEGATIVE); METHAMPHETAM NEGATIVE (NEGATIVE); Methadone NEGATIVE (NEGATIVE); Opiates NEGATIVE (NEGATIVE); Phencyclidine NEGATIVE (NEGATIVE); THC Cannibis POSITIVE (NEGATIVE)
--- NOTE | 2023-10-20 08:17 | ER ---
Nurse's Notes [facility] Name: Ericka Canales Age: 43 yrs Sex: Female : 1980 Arrival Date: 10/20/2023 Time: 03:48 Bed 7 Private MD: Diagnosis: Sunburn of first degree Presentation: 10/19 03:50 Chief complaint: Patient states: I was bit over and over again by some bugs, also bad bm8 sunburn on my right shoulder. Coronavirus screen: Vaccine status: Patient reports being unvaccinated. At this time, the client does not indicate any symptoms associated with coronavirus-19. Ebola Screen: Patient negative for fever greater than or equal to 101.5 degrees Fahrenheit, and additional compatible Ebola Virus Disease symptoms Patient denies exposure to infectious person. Patient denies travel to an Ebola-affected area in the 21 days before illness onset. No symptoms or risks identified at this time. Initial Sepsis Screen: Does the patient meet any 2 criteria? No. Patient's initial sepsis screen is negative. Does the patient have a suspected source of infection? No. Patient's initial sepsis screen is negative. Risk Assessment: Do you want to hurt yourself or someone else? Patient reports no desire to harm self or others. Onset of symptoms is unknown. Care prior to arrival: Medication(s) given: Epi 0.3 mg IM. 03:50 Method Of Arrival: EMS: [facility] bm8 03:50 Acuity: LETTY 3 bm8 Triage Assessment: 03:53 General: Appears in no apparent distress. uncomfortable, unkempt, Behavior is bm8 cooperative, appropriate for age, anxious. Pain: Complains of pain in right scapular area Pain does not radiate. Pain currently is 7 out of 10 on a pain scale. Quality of pain is described as burning. EENT: No deficits noted. No signs and/or symptoms were reported regarding the EENT system. Neuro: No deficits noted. Level of Consciousness is awake, alert, obeys commands, Oriented to person, place, time, situation. Cardiovascular: Reports chest pain, lightheadedness, shortness of breath, Capillary refill < 3 seconds Patient's skin is warm and dry. Respiratory: Airway is patent Trachea midline Respiratory effort is even, unlabored, Respiratory pattern is regular, symmetrical. GI: No signs and/or symptoms were reported involving the gastrointestinal system. : No signs and/or symptoms were reported regarding the genitourinary system. Derm: Reports burning, pain that is 7 out of 10 on a pain scale. pt has second degree sunburn on right scapula area. Musculoskeletal: No signs and/or symptoms reported regarding the musculoskeletal system. Injury Description: Patient sustained second-degree burn(s) to right scapular area. Estimated total body surface area burned is 5%, using the Rule of [place]. 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 - Infectious Disease History:: Denies. - Social history:: Smoking status: Patient reports the use of cigarette tobacco products, Patient uses alcohol, Patient/guardian denies using street drugs. - Family history:: not pertinent. Screenin:56 [facility] ED Fall Risk Assessment (Adult) History of falling in the last 3 months, bm8 including since admission No falls in past 3 months (0 pts) Confusion or Disorientation No (0 pts) Intoxicated or Sedated No (0 pts) Impaired Gait No (0 pts) Mobility Assist Device Used No (0 pt) Altered Elimination No (0 pt) Score/Fall Risk Level 0 - 2 = Low Risk Oriented to surroundings, Maintained a safe environment, Educated pt \T\ family on fall prevention, incl call for assistance when getting out of bed, Assessed \T\ reinforced patient's understanding of fall precautions. Abuse screen: Denies threats or abuse. Nutritional screening: No deficits noted. Tuberculosis screening: No symptoms or risk factors identified. Assessment: 03:56 Reassessment: see triage assessment. bm8 05:13 Reassessment: pt refuses to allow bp cuff to remain on stating that it hurts when it bm8 goes off. 05:50 General: multiple attempts made for iv access, no access at this time. provider lg3 notified.. 06:27 General: pt uncooperative during ultrasound IV attempt. provider notified . lg3 06:37 Reassessment:. General: provider at bedside speaking with pt. lc8 Vital Signs: 03:50 BP 112 / 70; Pulse 99; Resp 18; Temp 97.8; Pulse Ox 98% on R/A; Weight 58.97 kg; Height bm8 5 ft. 6 in. ; Pain 7/10; 06:36 BP 107 / 58; Pulse 83; Resp 19; Pulse Ox 97% on R/A; lc8 07:54 BP 110 / 60; Pulse 78; Resp 16; Pulse Ox 99% ; ko1 03:50 Body Mass Index 20.98 (58.97 kg, 167.64 cm) bm8 03:50 Pain Scale: Adult bm8 Andrey Coma Score: 03:56 Eye Response: spontaneous(4). Motor Response: obeys commands(6). Verbal Response: bm8 oriented(5). Total: 15. ED Course: 03:49 Patient arrived in ED. jj6 03:49 Bubba Cordero MD is Attending Physician. rt 03:50 Ricardo Gusman, RN is Primary Nurse. bm8 03:53 Triage completed. bm8 03:53 Arm band placed on right wrist. Patient placed in an exam room, on a stretcher, on bm8 pulse oximetry. 03:56 Patient has correct armband on for positive identification. Placed in gown. Bed in low bm8 position. Call light in reach. Side rails up X 1. Client placed on continuous cardiac and pulse oximetry monitoring. NIBP monitoring applied. Pulse ox on. NIBP on. Door closed. Noise minimized. Head of bed lowered. 03:56 No provider procedures requiring assistance completed. bm8 04:10 Missed attempt(s): 22 gauge in right hand. Bleeding controlled, band aid applied, bm8 catheter tip intact. 04:15 Missed attempt(s): 20 gauge in left antecubital area. Bleeding controlled, band aid bm8 applied, catheter tip intact. 05:46 Missed attempt(s): 22 gauge in left hand. Bleeding controlled, band aid applied, lg3 catheter tip intact. 05:46 Missed attempt(s): 20 gauge in right forearm. Bleeding controlled, band aid applied, lg3 catheter tip intact. 05:46 Missed attempt(s): 20 gauge in right hand. Bleeding controlled, band aid applied, kmf catheter tip intact. 05:47 Notified Charge Nurse of PATIENT SAID STRINGERS WERE IN HER BODY, PEOPLE ON [address] [facility] WERE OUT TO GET HER. HER KIDS NAMES WERE POPPING UP ALL OVER HER BODY. 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 05:47 Missed attempt(s): 20 gauge in right antecubital area. Bleeding controlled, band aid bc6 applied, catheter tip intact. 06:48 UDS Sent. lc8 06:49 UAM Sent. lc8 07:01 Attending Physician role handed off by Bubba Cordero MD ec2 07:01 Anam Manzano MD is Attending Physician. ec2 07:11 Report given to yolanda gatica. bm8 07:54 Provided Education on: call light. ko1 07:54 Patient did not have IV access during this emergency room visit. ko1 Administered Medications: 04:27 Drug: Ketorolac IM 30 mg IM once Route: IM; Site: right deltoid; rg5 06:26 Follow up: Response: No adverse reaction bm8 04:28 Drug: diphenhydrAMINE PO 50 mg PO once Route: PO; rg5 06:26 Follow up: Response: No adverse reaction bm8 Medication: 03:56 VIS not applicable for this client. bm8 Outcome: 08:16 Discharge ordered by . ec2 08:19 Discharged to home ambulatory, ko1 08:19 Condition: stable 08:19 Discharge instructions given to patient, Instructed on discharge instructions, follow up and referral plans. medication usage, Demonstrated understanding of instructions, follow-up care, medications, Prescriptions given X 1, 08:23 Patient left the ED. ko1 Signatures: Nithya Pablo RN RN lg3 Diane Meneses jj6 Louisa Lamb RN RN ko1 Bubba Cordero MD MD rt Anna Casanova bc6 Anam Manzano MD MD ec2 Olivia [facility] Ricardo Gusman RN RN bm8 Wu Betancur, YOLANDA GUERRERO rg5 Nola Leon RN RN lc8 Corrections: (The following items were deleted from the chart) 05:53 05:52 General: lg3 lg3
--- NOTE | 2023-10-20 08:17 | EDPHYS ---
Physician Documentation [facility] Name: Ericka Canales Age: 43 yrs Sex: Female : 1980 Arrival Date: 10/20/2023 Time: 03:48 Bed 7 Private MD: ED Physician Anam Manzano HPI: 10/19 04:42 This 43 yrs old Female presents to ER via EMS with complaints of Sunburn. rt 04:42 Patient presents to the ED stating she has been stung many times, [place] Also complained of some burning in the arms. Denies other acute complaints at this time, symptoms are mild in severity, no other aggravating or alleviating factors.. 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 - Infectious Disease History:: Denies. - Social history:: Smoking status: Patient reports the use of cigarette tobacco products, Patient uses alcohol, Patient/guardian denies using street drugs. - Family history:: not pertinent. ROS: 04:42 Constitutional: Negative for fever, chills, and weight loss, Cardiovascular: Negative rt for chest pain, palpitations, and edema, Respiratory: Negative for shortness of breath, cough, wheezing, and pleuritic chest pain, Neuro: Negative for headache, weakness, numbness, tingling, and seizure, 04:42 Skin: Positive for Sunburn, insect bite, Exam: 04:42 Constitutional: This is a well developed, well nourished patient who is awake, alert, rt and in no acute distress. Head/Face: Normocephalic, atraumatic. Chest/axilla: Normal chest wall appearance and motion. Nontender with no deformity. No lesions are appreciated. Cardiovascular: Regular rate and rhythm with a normal S1 and S2. No gallops, murmurs, or rubs. Normal PMI, no JVD. No pulse deficits. Respiratory: Lungs have equal breath sounds bilaterally, clear to auscultation and percussion. No rales, rhonchi or wheezes noted. No increased work of breathing, no retractions or nasal flaring. MS/ Extremity: Pulses equal, no cyanosis. Neurovascular intact. Full, normal range of motion. 04:42 Skin: Sunburn to the bilateral shoulders, upper arms. There are apparent insect bites on the back, no other areas of erythema, swelling.. Vital Signs: 03:50 BP 112 / 70; Pulse 99; Resp 18; Temp 97.8; Pulse Ox 98% on R/A; Weight 58.97 kg; Height bm8 5 ft. 6 in. ; Pain 7/10; 06:36 BP 107 / 58; Pulse 83; Resp 19; Pulse Ox 97% on R/A; lc8 07:54 BP 110 / 60; Pulse 78; Resp 16; Pulse Ox 99% ; ko1 03:50 Body Mass Index 20.98 (58.97 kg, 167.64 cm) bm8 03:50 Pain Scale: Adult bm8 [place] Coma Score: 03:56 Eye Response: spontaneous(4). Motor Response: obeys commands(6). Verbal Response: bm8 oriented(5). Total: 15. MDM: 03:56 Patient medically screened. rt 07:20 Data reviewed: vital signs. ED course: Patient signed out today. Physician, in brief ec2 patient arrives today for evaluation of sunburn. Also history of substance abuse. Patient with normal vital signs. Plan is to follow-up lab work and urine studies. . 07:47 ED course: Urine studies are nonactionable. . ec2 08:15 ED course: On reassessment patient is well-appearing in no acute distress. Patient has ec2 superficial partial-thickness bermudez, is nontoxic-appearing, has reassuring vital signs. Do not feel lab work would be beneficial in this setting as patient is nontoxic and does not appear infected. Will discharge home and have the patient follow-up expectantly and apply sxvs-vku-qrazvfc medications for her sunburn and pain.. 10/19 06:40 Order name: VINCE; Complete Time: 07:47 rt 10/19 06:40 Order name: CHARI; Complete Time: 07:47 rt Administered Medications: 04:27 Drug: Ketorolac IM 30 mg IM once Route: IM; Site: right deltoid; rg5 06:26 Follow up: Response: No adverse reaction bm8 04:28 Drug: diphenhydrAMINE PO 50 mg PO once Route: PO; rg5 06:26 Follow up: Response: No adverse reaction bm8 Disposition Summary: 10/20/23 08:16 Discharge Ordered Notes: Location: Home ec2 Condition: Stable ec2 Diagnosis - Sunburn of first degree ec2 Followup: ec2 - With: Private Physician - When: - Reason: Re-evaluation by your physician Discharge Instructions: - Discharge Summary Sheet ec2 - Sunburn, Adult, Nbag-kq-Owny ec2 Forms: - Medication Reconciliation Form ec2 - Antibiotic Education ec2 - Prescription Opioid Use ec2 - Patient Portal Instructions ec2 - Leadership Thank You Letter ec2 Prescriptions: - methocarbamol 500 mg Oral tablet - take 2 tablets ORAL route 4 times per day; 20 tablet; Refills: 0, Product ec2 Selection Permitted Signatures: Dispatcher [employer] Bubba Falcon MD MD rt Anam Manzano MD MD ec2 Ricardo Gusman RN RN bm8 Wu Betancur, YOLANDA RN rg5
[2023-10-20 08:43] VITALS: BP 110/60; TEMP 97.8; O2SAT 99
== END 2023-10-20 08:23 | disposition home or self-care (01) ==
LOC: ER 03:48
DX: L55.0 Sunburn of first degree (principal)
CPT/HCPCS: 80307; 81001; 96372; 99284

== ENCOUNTER 2023-11-25 08:49 | Emergency (ER) | payer BC ==
--- OUTSIDE RECORDS SUMMARY | 2023-11-25 08:51 | XMS REPORT | Continuity of Care Document ---
Author Name Unknown Address [address] [facility] [address] [place] [address] [facility] thconnect Address [address] [facility] [place] [address] Care Team Providers Care Radiologic Therapist Name Role Phone BEVERLY PÉREZ Primary Care Physician UnavailMAGGY Singletary Attending Clinician Unavailab Maggy Keller DO Attending Clinician [phone] MELISSA ENCISO Attending Clinician UnavailMelissa Hope MD Attending Clinician [phone] Polly Araiza Attending Clinician Unavailable Physician, No Primary or Family Admitting Clinic tammy Unavailable Payers Payer Name Policy Type Policy Number Effective Date Expirati on Date Source [facility] [id number] 2017 00:00:00 Problems Condition Name Condition Details Condition Category Status Onset Date Resolution Date Last Treatment Date Treating Clinician Comments Source Esophageal ulcer Esophageal ulcer Disease Active 01-12 00:00: 00 [facility] Dehydratio n Dehydratio n Disease Active 01-10 00:00: 00 [facility] Intractabl e vomiting Intractabl e vomiting Disease Active 01-09 00:00: 00 [facility] Allergies, Adverse Reactions, Alerts Allergy Name Allergy Type Status Severity Reaction(s) Onset Date Inactive Date Treating Clinician Comments Source No Known Allergie s DA Active U 10-03 00:00: 00 [facility] No Known Allergie s DA Active 10-03 00:00: 00 [facility] NO KNOWN ALLERGIE S Drug Class Active [facility] Social History Social Habit Start Date Stop Date Quantity Comments Source History of tobacco use Cigarette Smoker [facility] Exposure to SARS-CoV-2 (event) 2022-03-16 00:00:00 2022-03-26 14:46:00 Not sure [facility] Alcohol intake 2017-01-12 00:00:00 2017-01-12 00:00:00 Current drinker of alcohol (finding) [facility] Cigarettes smoked current (pack per day) - Reported 2017-01-09 00:00:00 2017-01-09 00:00:00 [facility] Tobacco Comment 2017-01-09 00:00:00 2017-01-09 00:00:00 1 Cpack every 2 days [facility] Sex Assigned At 1980 00:00:00 1980 00:00:00 [facility] Smoking Status Start Date Stop Date Source Smokes tobacco daily 2017-01-09 00:00:00 [facility] Medications Ordered Medication Name Filled Medication Name Start Date Stop Date Current Medication? Ordering Clinician Indication Dosage Frequency Signature (SIG) Comments Components Source ondansetron (ZOFRAN-ODT ) disintegrat ing tablet 4 mg 2021-05 22:00: 00 03-26 21:49 :00 No 4mg 4 mg, Oral, ONCE, 1 dose, On 03/26/22 at 1600, Routine [facility] ibuprofen (IBU) tablet 600 mg 2021-05 21:00: 00 03-26 21:49 :00 No 600mg 600 mg, Oral, ONCE, 1 dose, On 11/20/22 at 1500, JOVON [facility] methylPREDN ISolone (MEDROL, OLLIE,) 4 mg tablets 11-12 00:00: 00 Yes [id number] Take by mouth SEE-INSTRU CTIONS. follow package directions [facility] traMADOL 50 mg tablet 01-12 00:00: 00 Yes 50mg Take 1 tablet by mouth every 8 (eight) hours as needed for Pain (scale 4-6) or Pain (scale 7-10). [facility] ondansetron 4 mg tablet 01-12 00:00: 00 Yes 4mg Take 1 tablet by mouth every 6 (six) hours as needed for Nausea and Vomiting (N/V). [facility] Vital Signs Vital Name Observation Time Observation Value Comments S ourgui Systolic blood pressure 2022-03-26 20:43:00 154 mm[Hg] [facility] Diastolic blood pressure 2022-03-26 20:43:00 88 mm[Hg] [facility] Heart rate 2022-03-26 20:43:00 98 /min [facility] Body temperature 2022-03-26 20:43:00 36.56 Sherita [facility] Respiratory rate 2022-03-26 20:43:00 18 /min [facility] Body weight 2022-03-26 20:43:00 63.504 kg [facility] BMI 2022-03-26 20:43:00 22.60 kg/m2 [facility] Oxygen saturation in Arterial blood by Pulse oximetry 2022-03-26 20:43:00 99 /min [facility] Systolic blood pressure 2019-11-13 14:09:00 116 mm[Hg] [facility] Diastolic blood pressure 2019-11-13 14:09:00 74 mm[Hg] [facility] Respiratory rate 2019-11-13 14:09:00 18 /min [facility] Body height 2019-11-13 14:09:00 167.6 cm [facility] Body weight 2019-11-13 14:09:00 90.719 kg [facility] BMI 2019-11-13 14:09:00 32.28 kg/m2 [facility] Procedures Procedure Date / Time Performed Performing Clinicia n Source NOTICE OF PRIVACY PRACTICES 2022-03-26 20:36:23 Doctor Unassigned, Emery [facility] CONSENT/REFUSAL FOR DIAGNOSIS AND TREATMENT 2022-03-26 20:33:44 Doctor Unassigned, Emery [facility] [id number] 2019-10-10 00:00:00 GREGORIO [facility] 5DN40OM 2019-10-10 00:00:00 [facility] Encounters Start Date/Time End Date/Time Encounter Type Admission Type Attending Clinicians Care Facility Care Department Encounter ID Source 2019-10-04 12:28:00 Inpatient HCAPM HUGH [id number] [facility] 2022-03-26 14:47:00 2022-03-26 16:46:00 Emergency X MAGGY QUEEN [facility] ERT [id number] [facility] 2022-03-26 14:47:00 2022-03-26 16:46:00 Emergency Maggy Queen [facility] 1..840.114 350.1.13.10 4.2.7.2.686 [id number] [facility] 2019-11-13 09:45:00 2019-11-13 09:45:00 Outpatient R MELISSA ENCISO [facility] [id number] [facility] 2019-11-13 09:04:47 2019-11-13 09:41:46 Office Visit Melissa Enciso [facility] Health [facility] 1..840.114 350.1.13.10 4.2.7.2.686 [id number] [facility] 2019-10-04 23:54:00 2019-10-04 23:54:00 Outpatient Polly Araiza [facility] [id number] [facility] Results Test Description Test Time Test Comments Results Resul t Comments Source SURG 2019-10-13 15:39:00 ----RUN DATE: 10/13/19 [facility] - LAB PAGE 1 RUN TIME: 1539 Specimen Inquiry RUN USER: INTERFACE ----PATIENT: ERICKA ZULUGAA LOC: [place] U #: [id number] AGE/SX: 39/F ROOM: [facility] RE10/04/19REG DR: Polly Araiza MD : 78 BED: 1 DIS: 10/10/19 STATUS: DIS IN TLOC: ---- SPEC #: [id number] RECD: 10/10/19 STATUS: SOUT REQ #: [id number] ANA: 10/10/[address]: Polly Araiza MD ENTERED: 10/10/19 SP TYPE: SURG OTHR DR: No Primary or Family Physician Self Referred Rob Stevens MD, Bilal MDORDERED: AB/PAS MARTÍNEZ, SURG PATH LVL 4/2, PATH STAIN GROU COPIES TO: No Primary or Family Phys[place] [address] [place] [address] Rob Stevens MD [address] [place], [place] [id number] Steven Crisostomo MD [address] [place], [place] [id number] HISTOLOGY: TISSUE ID BLK PCS MING LEV [...] CONTINUED ON NEXT PAGE ----RUN DATE: 10/13/19 [facility] PAGE 2 RUN TIME: 1539 Specimen Inquiry RUN USER: INTERFACE ----SPEC #: [id number] PATIENT: ERICKA ZULUAGA #[id number] (Continued) CLINICAL HISTORY PYELONEPHRITIS CPT CODES CPT CODE(S): 67380Z3 , 15080 , 99343 , , , , FINAL DIAGNOSIS A. [...] all as B. ba/nr Grossing performed at [facility] Pathology, [address] [place] [address], [address], [place] [address]. Music Library Assistant: Jorge Camp M.D. MICROSCOPIC DESCRIPTION A. Duodenum [...] Helicobacter pylori organisms. Signed SIGNATURE ON FILE VirykraigNeftaly M 10/13/19 1539 ---- END OF REPORT BASIC METABOLIC [id number] 07:24:00* Test Item Value Reference Range Interpretation [...] CA) 9.1 MG/DL 8.5-10.1 N CBC W/AUTO [id number] 07:07:00* Test Item Value Reference Range Interpretation [...] CRITERIA - HEPA IMAG INCL GB W [id number] 16:22:00FAX: Polly Mccullough MD [phone] Camps: PM St: ADM FAX: Efren Tripp MD Name: ERICKA ZULUAGA [facility] : 1980 Age/S: 39/F [address] [place] Unit #: [id number] Loc: [address] [place] [address] Phys: Efren Montez MD Acct: [id number] Dis Date: Status: ADM IN PHONE #: [phone] Exam Date: 10/07 1609 FAX #: Reason: evaluate for acute cholecystitis EXAMS: CPT: [id number] HEPA IMAG INCL GBW PHA 59030 HIDA scan. DIAGNOSIS: evaluate for acute cholecystitis Comparison: Ultrasound study of 10/08/2019 is reviewed. LOCATION: C3 Approximately 5.4 mCi of technetium 99m Choletec was administeredintravenously. Dynamic imaging was performed for 1 hour. There is prompt homogeneous accumulation of the radionuclide within a normal-size liver. There is rapid excretion into bile ducts, gallbladderand bowel. The gallbladder is confidently seen at [...] M.D. PAGE 1 Signed Report (CONTINUED) FAX: Johnna Mccullough [phone] Camps: PM St: ADM FAX: Efren Tripp MD Name: CARLOS ARCEERICKA [facility] : 1980 Age/S:39/F [address] [address] Unit #: [id number] Loc: [address] [place] [address] Phys: Efren Montez MD Acct: [id number] Dis Date: Status: ADM IN PHONE #: [phone] Exam Date: 10/08/2019 1605 FAX #: Reason: evaluate for acute cholecystitis EXAMS: CPT: [id number] HEPA IMAG INCL GB W PHA 62697 (Continued) CC: Polly Araiza MD; Efren Montez MD Technologist: YOLANDA Pratt Transcribed Date/Time/By: 10/08/2019 (1970) :YonisNB16 Orig Print D/T: S: 10/08/2019 (1510) PAGE 2 Signed Report- US ABDOMEN [id number] 08:52:00Name: ERICKA ZULUAGA [place] : 1980 Age/S: 39 / F [address] [place] Unit #: [id number] Loc: [place] [address] Phys: Steven Crisostomo MD Acct: [id number] Dis Date: Status: ADM INPHONE #: [phone] Exam Date: 10/08/2019814 FAX #: Reason: pyelo/pain upper abdomen EXAMS: CPT: [id number] US ABDOMEN COMPLETE 77651 EXAM: - US ABDOMEN COMPLETE HISTORY: pyelo/pain upper abdomenLocation code:S17 TECHNIQUE: Survey ultrasound imaging of the complete abdomen was performed including color Doppler evaluation of the main portal vein with representative personal service images obtained. COMPARISON: CT abdomen and pelvis 10/06/2019 FINDINGS: Statements: None. Liver: Right hepatic lobe length: 12 cm Parenchyma/Contour: Unremarkable. Main portal vein: Patent with normal (hepatopetal) flow. Biliary ducts: No intrahepatic biliary ductal dilation. Common duct measures 4 mm in diameter at the dena hepatis. Gallbladder: Contracted. No evidence of intraluminal shadowing stone or sludge. No pericholec ystic fluid. Gallbladder wall mildly thickened up to 0.6 cm, likely accentuated by its underdistended state. No pericholecystic fluid. The technologist reports a negative sonographic Barba's sign. Pancreas: Limited, due to overlying bowel gas. The visualized portions of the pancreatic body are mildly echogenic, nonspecific but otherwise unremarkable. Spleen: The spleen has a normal sonographicappearance. Right Kidney: The right kidney has a [...] 1 Signed Report (CONTINUED) Name: ERICKA ZULUAGA [place] : 1980 Age/S: 39 / F [address] [address] [place] Unit #: [id number] Loc: [place] [address] Phys: Steven Crisostomo MD Acct: [id number] Dis Date: Status: ADM IN PHONE #: [phone] Exam Date: 10/08/2019814 FAX #: Reason: pyelo/pain upper abdomen EXAMS: CPT: [id number] US ABDOMEN COMPLETE 45409 (Continued) Vessels: The visualized IVC in the [...] PAGE 2 Signed Report Name: ERICKA ZULUAGA [place] :1980 Age/S: 39 / F [address] [address] [place] Unit #: [id number] Loc: [place] [address] Phys: Steven Crisostomo MD Acct: [id number] Dis Date: Status: ADM IN PHONE #: [phone] Exam Date: 10/08/2019814 FAX #: Reason: pyelo/pain upper abdomen EXAMS: CPT: [id number] US ABDOMEN COMPLETE 84259 (Continued) Orig Print D/T: S: 10/08/2019 (0855) Probe: PAGE 3 Signed ReportDRUGS OF ABUSE SCREEN [id number] 06:29:00* Test Item Value Reference Range Interpretation [...] SCcutoff <300 NG/ML - CT ABD PELVIS W/PIKF8616-16-97 16:30:00Name: ERICKA ZULUAGA [facility] : 1980 Age/S: 39 / F [address] Unit #: [id number] Loc: [place] [address] Phys: Efren Montez MD Acct: [id number] Dis Date: Status: ADM INPHONE #: [phone] Exam Date: 10/06/2019 1607 FAX #: Reason: R/O KIDNEY STONES EXAMS: CPT: [id number] CT ABD PELVIS W/CONT 12327 HISTORY: R/O KIDNEY STONES EXAM TYPE: CT abdomen and pelvis with IV contrast. Location: S 17 TECHNIQUE: Contrast - IV contrast was given, no oral contrast was given Portal venous phase - abdomen and pelvis No delayed phase images were obtained. Reconstructions - coronal and sagittal planes One or more of the following dose reduction techniques were used: Automatedexposure control, adjustment of the mA and/or kV according to patient size, and/or utilization of iterative reconstruction technique. COMPARISON: None FINDINGS: Statements: None. Thoracic: Included images of the lower chest demonstrates mild linear scarring/atelectasis at the left lung base. Otherwise, No abnormalities. Hepatobiliary: The liver is normal without focal lesion. The gallbladder is no rmal. No biliary dilation. Pancreas: Normal. Spleen: Normal. [...] of ureteral stones. Evaluation of the bladder islimited, but no obvious bladder abnormality is present. Reproductive organs are unremarkable. Gastro intestinal: No bowel obstruction or perienteric inflammation. PAGE 1 Signed Report (CONTINUED) Name: ERICKA ZULUAGA : 1980 Age/S: 39 / F [address] [address] [place] Unit #: [id number] Loc: [place] [address] Phys: Efren Montez MD Acct: [id number] Dis Date: Status: ADM IN PHONE#: [phone] Exam Date: 10/06/2019 1605 FAX #: Reason: R/O KIDNEY STONES EXAMS: CPT: [id number] CT ABD PELVIS W/CONT 00382 (Continued) The appendix is not visualized but [...] (1630) YonisKW9 Orig Print D/T: S: 10/06/2019 (9923) PAGE 2 Signed ReportUR HCG [id number] 14:49:00* Test Item Value Reference Range Interpretation Comme nts UR HCG QUAL (test code = HCGQLU) NEGATIVE NEGATIVE Novel Coronavirus 09:02:00* Test Item Value Reference Range Interpretation Comme nts Novel Coronavirus 2018 Inhouse (test code = [id number]) Negative Negative Positive resul ts are indicative of the presence obTZPU-JbY-2 RNA, clinical correlation with patient historyand other [...] for the identification of SARS-CoV-2 RNA usingthe Safe N Clear M2000 System under the FDA Emergency UseAuthorization. The testing is performed by personneltrained in the procedures for the Dominguez M2000 moleculardiagnostic SARS-CoV-2 assay in vitro. Testing Criteria: FeverNovel Coronavirus 09:02:00* Test Item Value Reference Range Interpretation Comme nts Novel Coronavirus 2018 Inhouse (test code = TLKCT97QA) Negative Negative Positive resul ts are indicative of the presence aqJVGZ-RcN-5 RNA, clinical correlation with patient historyand other [...] for the identification of SARS-CoV-2 RNA usingthe Safe N Clear M2000 System under the FDA Emergency UseAuthorization. The testing is performed by personneltrained in the procedures for the Dominguez M2000 moleculardiagnostic SARS-CoV-2 assay in vitro. Testing Criteria: FeverUA RFLX MICR CULT IF IRPPAHJNF2740-71-86 23:32:00* Test Item Value Reference Range Interpretation [...] Dysuria/Frequency Flank PainUA RFLX MICR CULT IF USRLTCVXF7223-08-16 23:26:00* Test Item Value Reference Range Interpretation [...] CATHETERIndication for culture: Dysuria/Frequency Flank PainCBC W/AUTO HKIF3787-37-73 14:20:00* Test Item Value Reference Range Interpretation [...] = MDIFF) NO DIFF/SCN CRITERIA BASIC METABOLIC [id number] 14:13:00* Test Item Value Reference Range Interpretation [...] CA) 7.8 MG/DL 8.5-10.1 L BASIC METABOLIC REIUJ3899-50-35 14:06:00* Test Item Value Reference Range Interpretation [...] Notes Date/Time Note Provider Source 2019-10-10 17:09:00 QInvjxinfch51504200l 7V3r1HqpYadpr2r3aHcJ9TKHs5XCM Fr7XCdaXWJ/pbzQcYxYpCVlENS9GiezNQO3040-68-58B07:0 9:00 [facility] ([facility])Hospitalist Discharge SummaryREPORT#:[id number] REPORT STATUS: SignedDATE:10/10/19 TIME:1709 PATIENT: ERICKA ZULUAGA UNIT #: [id number]#: [id number] [address] AGE: 39 SEX: F ATTEND: Polly Araiza [facility] AUTHOR: Efren Montez MD * ALL edits [...] feverof 102.3 prior to being evaluated at [facility]. She was transferred from [facility] emergency room in [place] Free Text DxA P NotesFree text DxA P notes:1. PyelonephritisContinue morphine 4 mg every 4 hours as neededRocephin 1 g every 24 hoursAntiemetics as neededSupportive management with antipyreticsCultures and urine culture negPatient was noted to have high fevers CLIENT SUPPORT ANALYST but none here-ruled out COVID 19 with [...] NEEDED FOR PAIN - SIG Obtained From Ricki traZODone (DESYREL) 150 MG TAB 150 MILLIGRAM ORAL BEDTIME. Comments: TAKE 1 TABLET BY MOUTH EVERYDAY AT BEDTIME - SIG Obtained From Ricki Start taking the following new medications:PANTOPRAZOLE DR [...] daysPrescriptions: on chart at 1720 RPT #: [id number] OF REPORT DSDischarge smtzgbm2973-38-54Y85:09:00L.MISL17968569-3645EIKs ailable for patient ymzvMZJNZXKXBSBKCC6083-52-84W55:21:13 [facility] 2019-10-10 16:29:00 STbnjenrihv90148354g W7bpbyOeu4C8zgKj82t30Je8w+nzc +z9WK1VeFjJjJ/MVTOrG67bfdjlk7eQLSA0936-07-03X63:2 9:00 [facility] ([facility])Post Anesthesia EvaluationREPORT#:[id number] REPORT STATUS: SignedDATE:10/10/19 TIME:1629 PATIENT: ERICKA ZULUAGA UNIT #: [id number]#: [id number] [address] AGE: 39 SEX: F ATTEND: Polly Araiza [facility] AUTHOR: Arlin Cardoso CRICKET COACH * ALL edits or amendments must be made on the electronic/computer document * Post Anesthesia Evaluation Anes. changes from pre-op evalORM Surgeries: Surgery Date and Time: 10/10/2019 113 Primary Procedure: ESOPHAGOGASTRODUODENOSCOPY Anesthetic: TIVADate: 10/10/19Level of consciousness: no change, patient awake, able to answer questions, participate in this eval.Vital signs:Vital Signs: Date Time Temp Pulse Resp B/P B/P Pulse O2 O2 Flow FiO2 Mean Ox Delivery Rate 10/09 1610 36.8 57 18 120/78 92.2 94 / 1139 36.6 58 18 119/82 94.5 93 /05 1132 Nasal 2.724174 cannula 10/09 1125 56 18 102/64 96 Room air 10/09 1120 58 22 113/78 97 Room air / 1115 36.4 61 40 121/61 96 Nasal 2.387688 cannula 10/09 1032 36.9 55 18 130/72 97 Room air / 0848 59 16 149/86 106.6 06/ 0712 36.9 56 18 107/70 82.6 94 Cardiovascular: no change, CV system stable, vital signs stableRespiratory/Airway: respiratory system stable, maintains without supportPain: adequately controlledHydration: adequateTemp status: normothermicPresence of N/V: noAnesthesia complications: noOther changes requiring f/u: noneConclusions: no apparent anes. issues at 1629 RPT #: [id number] OF REPORT CLClinical vtug0077-15-56Q96:29:00L.ZPND51027287-1458CUShejh able for patient xxkiYNIYMRKCPLPPNL3619-00-88S11:30:22 [facility] 2019-10-10 10:57:00 GZebolpbuca64005468i EwK1dDh5jIaMM1PzBNEgd7gflNxpm kcA9wo0bwjC2Ej+dwhTnRJ7EJXzKvFPTYJ1817-72-97S77:5 7:127335-5290 [place] [address] PATIENT NAME: ERICKA ZULUAGA ADMIT DATE: 10/04/19ACCOUNT NO: [id number] ROOM NO: [address] AGE: 39 REPORT TYPE: ENDOSCOPY REPORT SEX: F ADMITTING PHYSICIAN: Polly Araiza MD ATTENDING PHYSICIAN: Polly Araiza MD Patient Name: Ericka Arce Procedure Date: 10/10/2019 10:57 AMMRN: [id number] of : 1980 Gender: FemaleAttending MD: Duke [...] AMEstimated Blood Loss: Estimated blood loss: none. [address] [place], [place] [address]Mgplichhs {4G1R1N1SJ6FZ884GE5P1587I21J82E5Z}.pdf ProVation FT PDF at 1112 PATIENT NAME: ERICKA ZULUAGA qurfhdv7247-68-64B65:12:00L.GIK90482348-9706IACcz ilable for patient grzqOGDFWZNSNFXYTD7921-53-85E64:13:02 [facility] 2019-10-09 22:53:00 HOwbvsritoz83619049z POS9VQHnTRw07dMIAcsmHNhW0JOwp joLscC9rhjBhCUL2ptY30yl+yz6G88f0q50025-36-59R71:5 3:00 [facility] ([facility])Infectious Dis. Progress NoteREPORT#:[id number] REPORT STATUS: SignedDATE:10/09/19 TIME:2252 PATIENT: ERICKA ZULUAGA UNIT #: [id number]#: [id number] [address] AGE: 39 SEX: F ATTEND: Polly Araiza [facility] AUTHOR: Steven Crisostomo MD * ALL edits [...] no edemaMusculoskeletal: full range of motion, normal inspectionNeuro/PERSONNEL REPRESENTATIVE: alert, oriented X 3Lymphatics: axilla normal, inguinal [...] planning as per at 1352 RPT #: [id number] OF REPORT PRProgress Vllo5536-29-45Z47:53:00L.HAQM81951422-0322NIVpfpi able for patient bpipXQWBUPUFPVCTHK3885-05-37F92:53:16 [facility] 2019-10-09 14:08:00 FOtflulaufu49069208H fMMqBXZYIEsMb/MKG6XJf1CaLhBv+ cIT70cEdZcaTc+osPGuNXVSuaD8uXqs1Bh2676-30-84N38:0 8:00 [facility] Progress NoteREPORT#:[id number] REPORT STATUS: SignedDATE:10/09/19 TIME:1408 PATIENT: ERICKA ZULUAGA UNIT #: [id number]#: [id number] [address] AGE: 39 SEX: F ATTEND: Polly Araiza [facility] AUTHOR: Efren Montez MD * ALL edits [...] 0750 37.0 60 16 107/74 0.0 95 / 0617 36.9 68 127/84 98.4 94 06/ [...] moves allMusculoskeletal: CVA tenderness (cva tenderness of right)Neuro/PERSONNEL REPRESENTATIVE: alert, oriented X 3 Diagnosis, Assessment PlanProblem [...] pain- nausea vomiting resolved today at 1410 [facility] #: [id number] OF REPORT PRProgress Bonl9491-20-14W57:08:00L.GRVA01160879-9244XJNtrct able for patient ivsrEPABKDLUUFOBZI4682-31-23Z44:10:28 [facility] 2019-10-09 09:30:00 OAxddchesnl74412033W uWfLa34nEDKE1KGOJ29E1s/GeI9dp 7+yN1GNnTJ2Rt/Ue8Eq38EZ4Va6CZuZPq66056-67-78F90:3 0:00 [facility] ([facility])GE Consultation NoteREPORT#:[id number] REPORT STATUS: SignedDATE:10/09/19 TIME:929 PATIENT: ERICKA ZULUAGA UNIT #: [id number]#: [id number] [facility] AGE: 39 SEX: F ATTEND: Polly Araiza [facility] AUTHOR: Page Trevino PA-C * ALL edits [...] social history:lives at home with and 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 independent with adlsAllergies:Coded Allergies:No Known Allergies (10/04/19) 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 status: Independent Review of [...] of motionSkin: dry, intactPsychiatry: anxious ResultsFindings/Data:Laboratory Tests 10/09/19 06:[Embedded Image Not Available]Laboratory Tests 10/08 616 Chemistry [...] % (Auto) (20.5 - 51.1 %) 36.3 Coles % (Auto) (1.7 - 9.3 %) 9.7 H Eos % (Auto) (0.0 - 6.0 %) 4.2 Baso % (Auto) (0.0 - 2.0 %) 0.8 Neut # (Auto) (1.8 - 7.6 K/mm3) 2.9 Lymph # (Auto) (0.6 - 3.2 K/mm3) 2.2 Coles # (Auto) (0.3 - 1.1 K/mm3) 0.6 [...] antiemetics, analgesia PRN at 1047 RPT #: [id number] OF REPORT JCNefnrucpwcuv6971-40-01P73:30:00L.YVVA56880579-7 020AVAvailable for patient oihmREAYAYHOYAUKTZ5436-96-63Y11:47:56 [facility] 2019-10-09 09:30:00 CHuwbtxjtqs609546595 j14zK5k+B6MhwG3QviqdeT/kfUMTN BqL5ip9lyk/lrvoehOJ4boc9w6rOy3hc0I1818-57-77S14:3 0:00 [facility] ([facility])GE Consultation NoteREPORT#:[id number] REPORT STATUS: SignedDATE:10/09/19 TIME:929 PATIENT: ERICKA ZULUAGA UNIT #: [id number]#: [id number] [facility] AGE: 39 SEX: F ATTEND: Polly Araiza [facility] AUTHOR: Page Trevino PA-C * ALL edits [...] social history:lives at home with and 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 independent with adlsAllergies:Coded Allergies:No Known Allergies (10/04/19) 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 status: Independent Review of [...] of motionSkin: dry, intactPsychiatry: anxious ResultsFindings/Data:Laboratory Tests 10/09/19 06:[Embedded Image Not Available]Laboratory Tests 10/08 616 Chemistry [...] - 10.1 MG/DL) 9.1 Laboratory Tests 10/08 0617 Hematology WBC (3.5 - 11.0 K/mm3) [...] % (Auto) (20.5 - 51.1 %) 36.3 Coles % (Auto) (1.7 - 9.3 %) 9.7 H Eos % (Auto) (0.0 - 6.0 %) 4.2 Baso % (Auto) (0.0 - 2.0 %) 0.8 Neut # (Auto) (1.8 - 7.6 K/mm3) 2.9 Lymph # (Auto) (0.6 - 3.2 K/mm3) 2.2 Coles # (Auto) (0.3 - 1.1 K/mm3) 0.6 [...] PRN at 1047 at 1436 RPT #: [id number] OF REPORT SMFxrcsyomqzru3687-23-91L05:30:00L.NOLD76143474-3 020AVAvailable for patient gtfcFQXYWEVQDTADZC0719-54-07E87:36:39 [facility] 2019-10-08 16:58:00 IEqvgzosged69840511s 5a4RKI0EVqTDIQhrYgsiIj6LWDz/H gk8eNXeh9r0WxTao0t6o7v1eCzBizNvGYp6256-44-36R65:5 8:00 [facility] ([facility])Infectious Dis. Progress NoteREPORT#:[id number] REPORT STATUS: SignedDATE:10/08/19 TIME:1657 PATIENT: ERICKA ZULUAGA UNIT #: [id number]#: [id number] [address] AGE: 39 SEX: F ATTEND: Polly Araiza [facility] AUTHOR: Steven Crisostomo MD * ALL edits [...] no edemaMusculoskeletal: full range of motion, normal inspectionNeuro/PERSONNEL REPRESENTATIVE: alert, oriented X 3Lymphatics: axilla normal, inguinal normal, neck normal, no lymphadenopathyPsychiatry: normal affect, normal judgment/insight, normal mood, not homicidal, not suicidal, no hallucinations ResultsFindings/Data:Laboratory Tests 06/ 0600 Toxicology Urine Opiates Screen (<2000 NG/ML [...] data:Recent Impressions:ULTRASOUND - US ABDOMEN COMPLETE 10/07 0755 Report Impression - Status: SIGNED Entered: 10/08/2019 0876 IMPRESSION: 1. Contracted gallbladder which limits evaluation [...] done.4. [facility] hida scan reviewedok to dc from my side on po antibxdw pt.thinks she is not ready for discharge !!!dc planning as per at 2338 RPT #: [id number] OF REPORT PRProgress Ynfw9152-27-86G06:58:00L.DSUF44525381-3506VUOmsfz able for patient ltjqYYFKHQZOUZOLQO5296-83-20Y00:38:36 [facility] 2019-10-08 02:01:00 [id number]+ jCllzgUvmZUfZL+hJY9ZUFn2YAHFt Mr8+TLXB8WRLGSyJFjZ19ggISkDsPe0V662063-64-21G37:0 1:[id number] [facility] [address] [place] [address] PATIENT NAME: ERICKA ZULUAGA ADMIT DATE: 10/04/19ACCOUNT NO: [id number] ROOM NO: L.S209 AGE: 39 REPORT TYPE: [...] and migraines, presented to the Emergency Department [facility] ER of [facility] with complaints of increased frequency ofurine [...] MD WT: CON:OMAR/CHETNA/NTSDD: 10/08/2019 02:01:30DT: 10/08/2019 04:40:33Conf#: [id number]/[facility]#: [id number] PATIENT NAME: ERICKA ZULUAGA Authenticated by Steven Crisostomo MD On 11/19/2019 02:26:11 AM at 0226 PATIENT NAME: ERICKA ZULUAGA :40:00L.CA [id number] for patient umjqHBONUZPAMZPEVF1826-29-95S45:26:47 [facility] 2019-10-07 17:52:00 QNwjnvibroa69050371c dj0pvfI9BRWvjVtC92dY/zM7cNX2C hgDsMxxF92pVp6DN3BxP8osHiXyHUy4foI5462-84-68N75:5 2:00 [facility] ([facility])Infect Dis Consult Note_ BriefREPORT#:[id number] REPORT STATUS: SignedDATE:10/07/19 TIME:1751 PATIENT: ERICKA ZULUAGA UNIT #: [id number]#: [id number] [address] AGE: 39 SEX: F ATTEND: Polly Araiza [facility] AUTHOR: Steven Crisostomo MD * ALL edits or amendments must be made on the electronic/computer document * History - Adult longitudinalPast surgical history:Reports: Appendectomy, . Family history:Reports: Cancer (mother-lung ca). 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 status: Independent at 0410 RPT #: [id number] OF REPORT OAXnumiiifohaj9499-48-26W72:52:00L.GANZ60035872-9 189AVAvailable for patient nyxfZYRSTPLQWBOOVG7443-00-44W04:10:51 [facility] 2019-10-07 14:11:00 BNhfhgyfhwj71315437o 6+eGL8EULoMCdBy/ksILIN4WLfrMA tah3o46+5rMemamzUOmC2AWRmEGkJ7DdSj3655-33-83R25:1 1:00 [facility]ospital[facility] Progress NoteREPORT#:[id number] REPORT STATUS: SignedDATE:10/07/19 TIME:1411 PATIENT: ERICKA ZULUAGA UNIT #: [id number]#: [id number] [address] AGE: 39 SEX: F ATTEND: Polly Araiza [facility] AUTHOR: Efren Montez MD * ALL edits [...] 81 17 127/85 99.2 97 Room air / 0704 37.1 81 17 105/74 84.0 98 Room air 10/06 0537 37.0 72 16 103/69 80.3 97 / 0033 37.0 75 18 106/73 84.0 96 06/ 2330 36.8 81 18 118/81 93.1 96 Room air 10/05 1928 36.9 77 19 112/80 90.8 91 Room air 10/05 1509 37.1 74 20 105/73 83.9 97 Room air 24 hour I O ending at 0700: 10/06 0700 10/05 1900 Intake Total 580 Output [...] moves allMusculoskeletal: CVA tenderness (cva tenderness of right)Neuro/PERSONNEL REPRESENTATIVE: alert, oriented X 3 Diagnosis, Assessment Plan [...] symptomatic- consult ID, continue abx at 1414 [facility] #: [id number] OF REPORT PRProgress Psjj2763-08-22W55:11:00L.XLSZ14637245-1074EEZvtoe able for patient alytKFCBRWENCPOMTI1084-07-42K56:14:13 [facility] 2019-10-06 13:15:00 FZpmjuxozab02930376p CkTa63M7gig0HOP7mHo9InOOB7oa0 s6fznGUFOadwPDx9RgmGO8QZmbvvomyOit1327-79-10J94:1 5:00 [facility] ([facility])Hospitalist Progress NoteREPORT#:[id number] REPORT STATUS: SignedDATE:10/06/19 TIME:1315 PATIENT: ERICKA ZULUAGA UNIT #: [id number]#: [id number] [address] [birth year] AGE: 39 SEX: F ATTEND: Polly Araiza [facility] AUTHOR: Efren Montez MD * ALL edits [...] 0405 37.7 94 18 111/66 81.0 95 / 0207 97 17 101/66 77.6 90 / 0048 37.2 90 18 93/65 74.6 97 [...] moves allMusculoskeletal: CVA tenderness (cva tenderness of right)Neuro/PERSONNEL REPRESENTATIVE: alert, oriented X 3 Diagnosis, Assessment Plan Free Text DxA P NotesFree text DxA P notes:1. PyelonephritisContinue morphine 4 mg every 4 hours as neededRocephin 1 g every 24 hoursAntiemetics as neededSupportive management with antipyreticsCultures and urine cultures pending.Patient was noted to have high fevers -rule out COVID 19 2. AnxietyContinue home regimen of medications next /1COVID negcontinue Rx for acute PNCT A/P with contrast as persistent pain- eval for abscsess vs kidney stone at 1317 RPT #: [id number] OF REPORT PRProgress Dsua0447-18-22J88:15:00L.ZTAU67097793-5833QFGxjjo able for patient bcqkVDEIPNTOAVPYFU1237-77-36M85:17:59 [facility] 2019-10-05 19:54:00 AZxmjyxrdtd68454482M 7WcAL3Tq7Ll4vvk8ux+b2rs7Xicah Fk0tHg8qkyxnUJrf/aVLVkA8iMUBXJGzjk8245-17-63G77:5 4:00 [facility] Progress NoteREPORT#:[id number] REPORT STATUS: SignedDATE:10/05/19 TIME:1953 PATIENT: ERICKA ZULUAGA UNIT #: [id number]#: [id number] [address] AGE: 39 SEX: F [facility] AUTHOR: Polly Araiza MD * ALL edits [...] AnxietyContinue home regimen of medications next at 1958 RPT #: [id number] OF REPORT PRProgress Axod3162-16-24E96:54:00L.JFKI28640229-7262OZPajfo able for patient lkaxALREFWQZMBMFXL6525-91-54Z67:58:37 [facility] 2019-10-04 18:53:00 [id number] AlqxtV3uutUMASODQGFP9ScP6cSEW LGZih9MWn9Sw/AfWepiUdLGrL8yVRVTMfa3597-66-76H51:5 3:00 [facility] ([facility])History Physical - AdultREPORT#:[id number] REPORT STATUS: SignedDATE:10/04/19 TIME:1852 PATIENT: ERICKA ZULUAGA UNIT #: [id number]#: [id number] ROOM/BED: [facility]DOB: [birth year] AGE: 39 SEX: F ATTEND: Polly Araiza [facility] AUTHOR: Polly Araiza MD * ALL edits or amendments must be made on the electronic/computer document * History of Present Illness HPIChief complaint:right sided back and abdominal pain, intractable n/vPCP:Dr. ERNESTO Hamilton:This is a 39-year-old female with past medical [...] 102.3 today prior to being evaluated at [facility]. She was transferred from [facility] emergency room in [place]. Patient denies any chest pain, shortness of [...] status: up to date except: (unknown per patient)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 status: Independent Review of [...] DVTMusculoskeletal: CVA tenderness (right cva tendernss), normal inspectionNeuro/PERSONNEL REPRESENTATIVE: alert, oriented X 3, normal speech, no [...] patch daily full codenext of kin Danya [phone] at 1918 RPT #: [id number] OF REPORT HPHistory and physical xabhykvskxb2416-58-30I71:53:00L.BNVZ33327434-8437 AVAvailable for patient gzyhVRCKKPGMGJVJHL3071-48-62E73:18:50 [facility] 2019-10-04 12:37:00 DPeplgyirqa96988203Y a/MhaURko8/0FlTKH2Hvg9mUI+mh7 lydUM6pP674qyayL8x3CmJnikG08IlKGp92415-75-30M71:3 7:00 [facility])EMERGENCY PROVIDER REPORTREPORT#:[id number] REPORT STATUS: SignedDATE:10/04/19 TIME:1237 PATIENT: ERICKA ZULUAGA UNIT #: [id number]#: [id number] [address] [birth year] AGE: 39 SEX: F PCP PHYS: [...] Fever. Free Text HPI NotesFree Text HPI Xokyz43ud WF with PMH of anxiety, depression, gastritis, PUD, migraine, renal stones and PTSD transferred from [facility] in [place] for pyelonephritis. Given Rocephin and Levaquin at [...] MG Q4H PRN PRN 10/03 1330 AC 06/02 IV 11/02 1329 0302 Patient Discharge Departure [...] taking over this patient's care. at 0814 [facility] #: [id number] OF REPORTEDEmergency department vbcljt5041-76-20Q40:37:00L.ONOJ93600889-2222WQGpx ilable for patient xlniWNBXQUDOTEBAFM1157-56-94N38:14:31 HCAPM
[2023-11-25] MEDS ORDERED: NA CHLORIDE 0.9% 1,000 ML ONE (09:20)
[2023-11-25] MEDS ORDERED: FAMOTIDINE 20 MG/2 ML VIAL IV ONE (09:20)
[2023-11-25 09:40] LABS: Absolute Basophils 0.1 K/uL (0-0.5); Absolute Eosinophils 0.3 K/uL (0-0.5); Absolute Lymphocytes (CBC) 2.6 K/uL (0.7-4.9); Absolute Neutrophil 3.4 K/uL (1.8-8.0); Basophils % 1.1 % (0-1.3); Hematocrit 31.6 % (36.0-45.0); Lymphocytes % 35.5 % (15.3-44.8); MCH 24.4 pg (27.0-35.0); MCHC 31.8 g/dL (32.0-36.0); MCV 76.8 fL (80-100); MPV 7.7 fL (7.6-11.3); Monocytes % 12.9 % (3.3-12.3); Neutrophils % 46.5 % (41.7-73.7); Nucleated Red Blood Cells % 0.1 % (0-0); Platelets 455 thou/uL (152-406); RBC Red Blood Cell Count 4.11 M/uL (3.86-4.86); Red Cell Distribution Width 16.4 % (12.1-15.2)
[2023-11-25 09:58] LABS: ALT/SGPT 17 U/L (13-56); Albumin 3.7 g/dL (3.4-5.0); Albumin/Globulin Ratio 0.9 (1.1-1.8); Alkaline Phosphatase 74 U/L (45-117); BUN Blood Urea Nitrogen 11 mg/dL (7-18); Bicarbonate 30 mEq/L (21-32); Bilirubin Total 0.2 mg/dL (0.2-1.0); Globulin 3.9 g/dL (2.3-3.5); Glomerular Filtration Rate 110 ml/min (=/>90); Glucose Level 112 mg/dL (74-106); Lipase 33 U/L (13-75); Protein, Total 7.6 g/dL (6.4-8.2); Sodium Level 137 mEq/L (136-145)
[2023-11-25 09:59] LABS: AST/SGOT < 10 U/L (15-37)
[2023-11-25 10:55] LABS: Specific Gravity < 1.005 (1.005-1.030)
[2023-11-25 11:00] LABS: Specific Gravity < 1.005 (1.005-1.030); Sqamous Epithelial <5 /HPF (None Seen); Urine Bacteria None Seen /HPF (<20); Urine Bilirubin NEGATIVE (Negative); Urine Blood Negative (Negative); Urine Clarity Turbid (Clear); Urine Color Colorless (Yellow); Urine Culture Reflex Order NOT NEEDED; Urine Glucose NEGATIVE (Negative); Urine Ketones NEGATIVE (Negative); Urine Microscopic Reflex YN ORDER UMIC; Urine Mucus Slight /HPF (None Seen); Urine Nitrite NEGATIVE (Negative); Urine Protein NEGATIVE (Negative); Urine RBC <5 /HPF (None Seen); Urine Urobilinogen Normal (Normal); Urine WBC <5 /HPF (<5); Urine pH 6.5 (5.0-7.0)
[2023-11-25 11:56] LABS: Barbiturates NEGATIVE (NEGATIVE); Benzodiazepines NEGATIVE (NEGATIVE); Cocaine NEGATIVE (NEGATIVE); METHAMPHETAM POSITIVE (NEGATIVE); Methadone NEGATIVE (NEGATIVE); Opiates NEGATIVE (NEGATIVE); Phencyclidine NEGATIVE (NEGATIVE); THC Cannibis NEGATIVE (NEGATIVE)
--- NOTE | 2023-11-25 12:01 | ER ---
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 Did not want to talk to ll1 EMS EMS states: VSS. Would not answer EMS questions. Coronavirus screen: Client denies travel out of the [place] in the last 14 days. At this time, the client does not indicate any symptoms associated with coronavirus-19. Ebola Screen: Patient denies travel to an Ebola-affected area in the 21 days before illness onset. Initial Sepsis Screen: Does the patient meet any 2 criteria? No. Patient's initial sepsis screen is negative. Does the patient have a suspected source of infection? No. Patient's initial sepsis screen is negative. Risk Assessment: Do you want to hurt yourself or someone else? Patient reports no desire to harm self or others. Onset of symptoms was November 25, 2023. 08:51 Method Of Arrival: Ambulatory ll1 08:51 Acuity: LETTY 3 ll1 Triage Assessment: 08:53 General: Appears distressed, uncomfortable, Behavior is calm, cooperative, appropriate ll1 for age. Pain: Complains of pain in abdomen Quality of pain is described as aching, crampy. GI: Reports lower abdominal pain, upper abdominal pain. 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 - Infectious Disease History:: Denies. - Social history:: Smoking status: Patient reports the use of cigarette tobacco products, smokes one-half pack cigarettes per day, Reported history of juuling and/or vaping. Screenin:05 [facility] ED Fall Risk Assessment (Adult) History of falling in the last 3 months, kj2 including since admission No falls in past 3 months (0 pts) Confusion or Disorientation Yes (5 pts) Intoxicated or Sedated No (0 pts) Impaired Gait No (0 pts) Mobility Assist Device Used No (0 pt) Altered Elimination No (0 pt) Score/Fall Risk Level 0 - 2 = Low Risk. Abuse screen: Denies threats or abuse. Denies injuries from another. Nutritional screening: No deficits noted. Tuberculosis screening: No symptoms or risk factors identified. Assessment: 09:49 General: Appears in no apparent distress. Behavior is calm, cooperative. Pain: kj2 Complains of pain in abdomen. Neuro: Level of Consciousness is awake, alert, Oriented to person, place, time. Cardiovascular: Capillary refill < 3 seconds Patient's skin is warm and dry. Respiratory: Airway is patent. GI: Abdomen is. :. 12:02 Reassessment: Patient appears in no apparent distress at this time. Patient and/or kj2 family updated on plan of care and expected duration. Pain level reassessed. Patient is alert, oriented x 3, equal unlabored respirations, skin warm/dry/pink. Vital Signs: 08:51 BP 109 / 63; Pulse 88; Resp 17; Temp 97.8; Pulse Ox 100% on R/A; Weight 58.97 kg; ll1 Height 5 ft. 6 in. ; 09:30 BP 120 / 100; Pulse 77; Resp 18; Pulse Ox 100% ; kj2 10:48 BP 96 / 65; Pulse 76; Resp 18; Pulse Ox 100% on R/A; kj2 12:00 BP 90 / 47; Pulse 66; Resp 18; Pulse Ox 100% ; kj2 12:20 BP 90 / 57; Pulse 67; Resp 20; Temp 98; Pulse Ox 99% ; kj2 08:51 Body Mass Index 20.98 (58.97 kg, 167.64 cm) ll1 ED Course: 08:50 Patient arrived in ED. ll1 08:51 Arm band placed on. ll1 08:53 Triage completed. ll1 08:56 Diane [facility] FNP [facility] jh7 08:56 Meena Humphries MD is Attending Physician. jh7 09:44 Marissa Wright, YOLANDA is Primary Nurse. kj2 09:51 No provider procedures requiring assistance completed. Inserted saline lock: 20 gauge kj2 in left antecubital area, using aseptic technique. Blood collected. 10:07 Patient has correct armband on for positive identification. Bed in low position. Call kj2 light in reach. Provided Education on: call light, fall precautions. 10:47 Tylenol Level Sent. kj2 10:47 Salicylate Sent. kj2 10:48 UDS Sent. kj2 10:48 Test, Urine Sent. kj2 10:48 Urinalysis w/ reflexes Sent. kj2 12:05 IV discontinued, intact, bleeding controlled, No redness/swelling at site. Pressure kj2 dressing applied. Administered Medications: 09:47 Drug: NS 0.9% IV 1000 ml IV at 1 bolus Per protocol; 1000 mL bolus Route: IV; Rate: 1 kj2 bolus; Site: left antecubital; 12:20 Follow up: IV Status: Completed infusion kj2 09:47 Drug: Famotidine IVP 20 mg IVP once; dilute with 10 mL 0.9% NaCl; give over 2 minutes kj2 Route: IVP; Site: left antecubital; 12:03 Follow up: Response: No adverse reaction kj2 Medication: 10:06 VIS not applicable for this client. kj2 Outcome: 12:01 Discharge ordered by MD. mccrary 12:05 Discharged to home ambulatory, kj2 12:05 Condition: stable 12:05 Discharge instructions given to patient, Instructed on discharge instructions, Demonstrated understanding of instructions, 12:22 Patient left the ED. kj2 Signatures: Mónica Posey, RN RN ll1 Diane Vega, CONTRACT COORDINATOR CONTRACT COORDINATOR jh7 Marissa Wright RN RN kj2
--- NOTE | 2023-11-25 12:01 | EDPHYS ---
Physician Documentation [facility] Name: Ericka Canales Age: 43 yrs Sex: Female : 1980 Arrival Date: 11/25/2023 Time: 08:49 Bed 17 Private MD: ED Physician Meena Humphries HPI: 11/24 08:51 This 43 yrs old Female presents to ER via Ambulatory with complaints of Abdominal Pain. [facility] 08:51 43-year-old female with a past medical history of anxiety and depression presents to [facility] the ER for abdominal pain x 1 hour. EMS reports that the patient refused to talk to them. She denies fever, nausea, vomiting, and diarrhea. Patient resting calmly in the stretcher upon examination.. 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 - Infectious Disease History:: Denies. - Social history:: Smoking status: Patient reports the use of cigarette tobacco products, smokes one-half pack cigarettes per day, Reported history of juuling and/or vaping. ROS: 08:51 Constitutional: Per HPI [facility] Exam: 08:51 Head/Face: Normocephalic, atraumatic. Neck: Trachea midline, no thyromegaly or masses [facility] palpated, and no cervical lymphadenopathy. Supple, full range of motion without nuchal rigidity, or vertebral point tenderness. No Meningismus. Cardiovascular: Regular rate and rhythm with a normal S1 and S2. No gallops, murmurs, or rubs. Normal PMI, no JVD. No pulse deficits. Respiratory: Lungs have equal breath sounds bilaterally, clear to auscultation and percussion. No rales, rhonchi or wheezes noted. No increased work of breathing, no retractions or nasal flaring. Abdomen/GI: Soft, non-tender, with normal bowel sounds. No distension or tympany. No guarding or rebound. No evidence of tenderness throughout. Skin: Warm, dry with normal turgor. Normal color with no rashes, no lesions, and no evidence of cellulitis. MS/ Extremity: Pulses equal, no cyanosis. Neurovascular intact. Full, normal range of motion. Neuro: Awake and alert, GCS 15, oriented to person, place, time, and situation. Cranial nerves II-XII grossly intact. Motor strength 5/5 in all extremities. Sensory grossly intact. Cerebellar exam normal. Normal gait. 08:51 Constitutional: The patient appears lethargic, sleeping Vital Signs: 08:51 BP 109 / 63; Pulse 88; Resp 17; Temp 97.8; Pulse Ox 100% on R/A; Weight 58.97 kg; ll1 Height 5 ft. 6 in. ; 09:30 BP 120 / 100; Pulse 77; Resp 18; Pulse Ox 100% ; kj2 10:48 BP 96 / 65; Pulse 76; Resp 18; Pulse Ox 100% on R/A; kj2 12:00 BP 90 / 47; Pulse 66; Resp 18; Pulse Ox 100% ; kj2 12:20 BP 90 / 57; Pulse 67; Resp 20; Temp 98; Pulse Ox 99% ; kj2 08:51 Body Mass Index 20.98 (58.97 kg, 167.64 cm) ll1 MDM: 08:56 Patient medically screened. [facility] 12:02 Differential diagnosis: appendicitis, cholecystitis, gastritis, non-specific abd pain, [facility] pancreatitis, urinary tract infection. Data reviewed: vital signs, nurses notes, lab test result(s). I considered the following discharge prescriptions or medication management in the emergency department Medications were administered in the Emergency Department. See MAR. Care significantly affected by the following chronic conditions: mental illness. Care significantly affected by the following Social Determinants of Health: Misuse of alcohol and/or drugs. Counseling: I had a detailed discussion with the patient and/or guardian regarding the historical points, exam findings, and any diagnostic results supporting the discharge/admit diagnosis, to return to the emergency department if symptoms worsen or persist or if there are any questions or concerns that arise at home. ED course: Patient slept throughout her ER visit. Informed her that all of her labs were reassuring but that she did test positive for methamphetamines in her urine. The patient was upset and stated that she has abdominal pain when she coughs that is so severe she cannot move. Informed her that I pressed all over her abdomen while she slept and that she did not complain of pain. Reassessed abdomen with no signs of tenderness. Advised follow-up with PCP and return to the ER with any new concerning symptoms.. 11/24 09:11 Order name: CBC with Diff; Complete Time: 09:49 [facility] 11/24 09:11 Order name: CMP; Complete Time: 10:01 [facility] 11/24 09:11 Order name: Lipase; Complete Time: 10:01 [facility] 11/24 09:11 Order name: Test, Urine; Complete Time: 10:56 [facility] 11/24 09:11 Order name: Urinalysis w/ reflexes; Complete Time: 11:04 [facility] 11/24 09:45 Order name: UDS; Complete Time: 12:00 [facility] 11/24 10:24 Order name: ETOH Level; Complete Time: 11:31 [facility] 11/24 10:24 Order name: Salicylate; Complete Time: 11:48 [facility] 11/24 10:24 Order name: Tylenol Level; Complete Time: 11:38 [facility] 11/24 09:11 Order name: IV Saline Lock; Complete Time: 09:46 [facility] 11/24 09:11 Order name: Labs collected and sent; Complete Time: 09:46 [facility] Administered Medications: 09:47 Drug: NS 0.9% IV 1000 ml IV at 1 bolus Per protocol; 1000 mL bolus Route: IV; Rate: 1 kj2 bolus; Site: left antecubital; 12:20 Follow up: IV Status: Completed infusion kj2 09:47 Drug: Famotidine IVP 20 mg IVP once; dilute with 10 mL 0.9% NaCl; give over 2 minutes kj2 Route: IVP; Site: left antecubital; 12:03 Follow up: Response: No adverse reaction kj2 Disposition: 19:19 Co-signature as Attending Physician, Meena Humphries MD I reviewed the patient's care sd2 provided by the Advanced Practice Provider and agree with the diagnosis and treatment plan. Disposition Summary: 11/25/23 12:01 Discharge Ordered Notes: Location: Home [facility] Problem: new [facility] Symptoms: are unchanged [facility] Condition: Stable [facility] Diagnosis - Abdominal pain, Generalized jh7 - Other psychoactive substance abuse, uncomplicated jh7 Followup: [facility] - With: Private Physician - When: 2 - 3 days - Reason: Recheck today's complaints Discharge Instructions: - Discharge Summary Sheet [facility] - Abdominal Pain, Adult 7 - Substance Use Disorder [facility] Forms: - Medication Reconciliation Form [facility] - Patient Portal Instructions [facility] - Leadership Thank You Letter [facility] Signatures: Dispatcher [employer] EDMónica Bull, RN RN ll1 Diane Vega, ADMISSIONS COORDINATOR ADMISSIONS COORDINATOR 7 Meena Humphries MD MD sd2 Marissa Wright RN RN kj2 Corrections: (The following items were deleted from the chart) 10:24 10:24 ETHANOL+C.LAB.BRZ ordered. EDMS EDMS 10:24 10:24 SALICYLATE+C.LAB.BRZ ordered. EDMS EDMS 10:24 10:24 ACETAMINOPHEN+C.LAB.BRZ ordered. EDMS EDMS 10:53 10:24 [place] ordered. 7 kj2
[2023-11-29 14:33] VITALS: BP 90/57; TEMP 98; O2SAT 99
== END 2023-11-25 12:22 | disposition home or self-care (01) ==
LOC: ER 08:49
DX: R10.84 Generalized abdominal pain (principal); F19.10 Other psychoactive substance abuse, uncomplicated; Z91.012 Allergy to eggs; F17.210 Nicotine dependence, cigarettes, uncomplicated
CPT/HCPCS: 96361; 85025; 81001; 36415; 81025; 83690; 80053; 80307; 96374; 99284; 80143; 80179; 82077; J7030